=== PATIENT | female | born 1940 | race Caucasian/White ===

== ENCOUNTER → 2016-07-26 | Outpatient (CLI) | payer BC ==
[~2016-07-26] MED LIST: BACL10TA PO; BUSP-8 PO; LORA-741 PO; ONDA4TAB65 PO
[2016-07-26 14:07] LABS: BLOOD UREA NITROGEN 20 mg/dl (7-18); CREATININE 0.91 mg/dl (0.60-1.20)
== END | disposition home or self-care (01) ==
LOC: C.LABBC 11:14
PROVIDERS: ATTEND Physician Assistant
DX: G50.0 Trigeminal neuralgia (principal)

== ENCOUNTER → 2016-07-28 | Outpatient (CLI) | payer BC ==
[~2016-07-28] MED LIST changes: +GADAVIST IV PRN
--- NOTE | 2016-07-28 11:15 | DIAGNOSTIC IMAGING REPORT ---
MRI OF THE BRAIN COMBO TRIGEMINAL NERVE PROTOCOL CLINICAL HISTORY: Left-sided trigeminal neuralgia. COMPARISON STUDY: MRI of the brain dated 03/04/2015 and 09/23/2014. TECHNIQUE: MRI of the brain was performed utilizing various T1 and T2-weighted sequences in the axial, sagittal, and coronal planes. Contrast-enhanced sequences were acquired following the administration of 6 cc of Gadavist. Additional high-resolution imaging was performed through the skull base both pre and postcontrast for further assessment of the trigeminal nerve. FINDINGS: Brain parenchyma: Right frontal encephalomalacia is unchanged and likely related to previous surgery. Mild dural thickening and enhancement along the right frontal convexity in the midline falx is similar to previous and likely a postoperative basis. There are age-related involutional changes noting minimal subcortical and periventricular PICC radiopathic disease. There is no hemorrhage or mass effect. There is no restricted diffusion to suggest acute ischemia. No enhancing mass lesion is identified on the postcontrast images. Kat-white matter differentiation is preserved. No extra-axial fluid collection is seen. The cerebellar tonsils are normal in configuration. Ventricles, sulci, and cisterns: Prominent secondary to involutional change. Trigeminal nerves: The trigeminal nerves are symmetric bilaterally, and are normal in both morphology and signal intensity. No abnormal enhancement is identified involving the trigeminal nerves on the postcontrast imaging. Pituitary and sella: Unremarkable. Intracranial vasculature: Normal flow voids are maintained at the skull base. Orbits: The bony orbits are grossly intact. Orbital contents are normal in appearance noting a left ocular lens implant. Sinuses and mastoids: Clear. Calvarium: Again seen are postoperative changes from right frontoparietal craniotomy. No destructive calvarial lesion is seen. Cervical cord: Partially visualized cervical spinal cord is normal in morphology and signal intensity. IMPRESSION: 1. No acute intracranial abnormality. 2. Mild age-related and postoperative change as above. This is similar in appearance to prior examinations. 3. Unremarkable MRI assessment of the trigeminal nerves. Electronically signed by: Wong Santos M.D. 07/28/2016 11:12 AM Dictated Date/Time: 07/28/2016 11:02 AM
== END | disposition home or self-care (01) ==
LOC: C.MRIBC 09:22
PROVIDERS: ATTEND Physician Assistant
DX: G50.0 Trigeminal neuralgia (principal)

== ENCOUNTER 2016-10-16 09:13 | Emergency (ER) | payer BC ==
[~2016-10-16] VITALS: Ht 167.6 cm; Wt 58.9 kg
[~2016-10-16 09:13] MED LIST changes: -BACL10TA PO; -GADAVIST IV PRN; -LORA-741 PO; -ONDA4TAB65 PO
[2016-10-16 09:22] VITALS: TEMP 36.9; O2SAT 97; Ht 167.6 cm; Wt 58.9 kg
[2016-10-16] MEDS ORDERED: SODIUM CHLORIDE 0.9% 1000ML 1,000 ML IV STA (09:32)
[2016-10-16] MEDS ORDERED: ONDANSETRON INJ 2 MG/ML 2 ML VIAL IV STA (09:32)
[2016-10-16] MEDS ORDERED: MoRPHine SULFATE 4 MG/ML 1 ML CARP\\VIAL IV STA (09:32)
[2016-10-16 09:39] LABS: BASO % 0.2 %; BASO ABS # 0.02 K/uL (0-0.2); COMPLETE YES; EOS % 2.2 %; HEMATOCRIT 42.3 % (37-47); IG% 0.1 %; LYMPH % 26.7 %; LYMPH ABS # 2.14 K/uL (1.2-3.4); MEAN CELL VOLUME 99.3 fL (80-100); MEAN CORPUSCULAR HGB CONC 35.2 g/dl (32-36); MEAN PLATELET VOLUME 10.8 fL (7.4-10.4); MONO % 9.6 %; NEUT % 61.2 %; PLATELET COUNT 287 K/uL (130-400); RED BLOOD COUNT 4.26 M/uL (4.2-5.4); WHITE BLOOD COUNT 8.01 K/uL (4.8-10.8)
[2016-10-16] MEDS ORDERED: BACL10TA PO (09:44)
[2016-10-16] MEDS ORDERED: LORA-741 PO (09:44)
[2016-10-16 09:58] LABS: BUN/CREATININE RATIO 26.9 (10-20); CALCIUM 10.5 mg/dl (8.5-10.1); CREATININE 0.94 mg/dl (0.60-1.20); POTASSIUM 3.9 mmol/L (3.5-5.1)
[2016-10-16] MEDS ORDERED: OPTIRAY 320 IV PRN (10:00)
--- NOTE | 2016-10-16 11:17 | DIAGNOSTIC IMAGING REPORT ---
ABD/PELVIS IV CONTRAST ONLY HISTORY:76 yearsFemalelower abd/priumbilical pain COMPARISON: CT abdomen and pelvis 03/06/2016 and 05/04/2006. TECHNIQUE: Multiple axial CT images of the abdomen and pelvis were obtained following the intravenous administration of 93 mL Optiray 320. FINDINGS: There is minimal dependent bibasilar atelectasis. No gross pneumoperitoneum. Inferior cardiac chambers are unremarkable. Circumscribed low attenuating lesion of the posterior right hepatic lobe, 1.5 x 1.3 cm is nonspecific and suggests a hepatic cyst. 1.7 x 1.0 cm low attenuating lesion of the mid spleen also appears unchanged from multiple comparisons dating back to 05/04/2006 suggesting benign cyst. Prior cholecystectomy. There is moderate pancreatic atrophy. Adrenal glands appear unremarkable. 5 mm low attenuating lesion of the interpolar left kidney is too small to characterize however suggests cyst with similar appearing lesions seen on the right. No hydronephrosis. The urinary bladder is unremarkable. Uterus and adnexa are age-appropriate. There is moderate atherosclerotic plaquing of the abdominal aorta and its branches. No pathologic adenopathy identified. There is a small to moderate-sized hiatal hernia with partially intrathoracic stomach. No bowel obstruction. Noninflamed colonic diverticula are seen. Normal appendix. Note is made of diastases recti with a small periumbilical fat filled hernia with diastases of 1.2 cm. Left gluteal injection granulomas present. Right hip arthroplasty noted. 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 7 mm retrolisthesis L2 on L3 and 6 mm retrolisthesis L1 on L2 are again noted with approximately 30% anterior endplate compression deformity of L1, unchanged findings. IMPRESSION: 1. No acute intra-abdominal or intrapelvic abnormality identified. 2. Diastases recti with small fat filled periumbilical hernia. 3. Colonic diverticulosis without diverticulitis. 4. [id number] sized hiatal hernia. 5. Prior cholecystectomy. The above report was generated using voice recognition software. It may contain grammatical, syntax or spelling errors. Electronically signed by: Fermin Sy 10/16/2016 11:16 AM Dictated Date/Time: 10/16/2016 11:05 AM
[2016-10-16 11:28] VITALS: BP 148/50; PULSE 55; O2SAT 97
[2016-10-16 11:41] LABS: URINE APPEARANCE CLEAR (CLEAR); URINE BILIRUBIN NEG (NEG); URINE COLOR YELLOW; URINE EPITHELIAL CELL AUTO 0-5 /lpf (0-5); URINE NITRITE NEG (NEG); URINE SPECIFIC GRAVITY 1.019 (1.000-1.030); UROBILINOGEN NEG (NEG); ZZUR CULT IF INDIC CLEAN CATCH NO
[2016-10-16 11:50] LABS: MANUAL MICROSCOPIC REQUIRED? NO; REVIEW REQ? NO
[2016-10-16] MEDS ORDERED: ONDA4TAB65 PO (11:54)
--- NOTE | 2016-10-16 16:37 | EMERGENCY ROOM VISIT NOTE ---
History Report prepared by Tobi: Adri Hill Under the Supervision of: Dr. Adam Palmer D.O. First contact with patient: 09:26 Chief Complaint: NAUSEA Stated Complaint: FLU LIKE SX Nursing Triage Summary: Patient having nausea, vomiting, diarrhea and on/off fevers. PMH: Trigeminal Neuralgia (right side), Rose's Palsy (left side), S/P Choley, diverticulitis. History of Present Illness The patient is a 76 year old female who presents to the Emergency Room with complaints of worsening abdominal pain beginning last night. She states that she is also experiencing nausea, vomiting and diarrhea. She states a couple of episodes of diarrhea.The patient notes a decrease in appetite. She has a history of diverticulitis. The patient takes Lorazepam and states that she took her dosage yesterday and saw improvement in her symptoms. She notes trigeminal neuralgia on her right side. Pt denies headache, change in vision, fevers, chest pain, shortness of breath, pain with urination, blood in stool, recent exposure to illness, weakness or numbness in one extremity and melena. 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 Source of History: patient Onset: last night Position: abdomen Timing: worsening Associated Symptoms: + nausea, + vomiting, + urinary symptoms Review of Systems See HPI for pertinent positives & negatives. A total of 10 systems reviewed and were otherwise negative. 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 (4) Diverticulitis (5) Hypotension (6) Meningioma (7) Volume depletion Surgical Problems: (1) History of hip replacement (2) S/P cholecystectomy Family History Appendicitis FH: colonic diverticulitis Social History Smoking Status: Never Smoker Alcohol Use: occasionally Drug Use: none Marital Status: Housing Status: lives with significant other Occupation Status: retired Current/Historical Medications Scheduled Baclofen (Lioresal), 20 MG PO BID Lorazepam (Ativan), 0.5 MG PO DAILY Ondansetron Hcl (Zofran), 4 MG PO TID Allergies Coded Allergies: Hydrocodone (Verified Allergy, Intermediate, ITCHING, 10/16/16) Codeine (Verified Allergy, Mild, RASH, 10/16/16) Phenytoin (Verified Allergy, Mild, VERTIGO, 10/16/16) Peanut (Verified Allergy, Unknown, SHORTNESS OF BREATH, 10/16/16) Hydromorphone (Verified Adverse Reaction, Intermediate, NAUSEA/ VOMITING, 10/16/16) Oxycodone (Verified Adverse Reaction, Mild, NAUSEA/VERTIGO, 10/16/16) Physical Exam Vital Signs Date Time Temp Pulse Resp B/P (MAP) Pulse Ox O2 Delivery O2 Flow Rate FiO2 10/16/16 11:28 55 18 148/50 97 Room Air 10/16/16 09:26 58 10/16/16 09:22 36.9 77 18 158/88 97 Room Air 10/16/16 09:22 97 Room Air Physical Exam GENERAL: laying in bed, disheveled, alert, well appearing, well nourished, no distress, non-toxic EYE EXAM: normal conjunctiva, PERRL and EOM's intact OROPHARYNX: no exudate, no erythema, lips, buccal mucosa, and tongue normal and mucous membranes are moist NECK: supple, no nuchal rigidity, no adenopathy, non-tender LUNGS: Clear to auscultation. Normal chest wall mechanics HEART: no murmurs, S1 normal and S2 normal ABDOMEN: abdomen soft, non-tender, normo-active bowel sounds, no masses, no rebound or guarding. BACK: Back is symmetrical on inspection and there is no deformity, no midline tenderness, no CVA tenderness. SKIN: no rashes and no bruising UPPER EXTREMITIES: upper extremities are grossly normal. LOWER EXTREMITIES: No pitting edema. NEURO EXAM: Normal sensorium, cranial nerves II-XII normal with exception of left facial droop x3 years, normal speech, no weakness of arms, no weakness of legs. Medical Decision & Procedures ER Provider Diagnostic Interpretation: CT result as stated below per my review and the radiologist's interpretation: ABD/PELVIS IV CONTRAST ONLY HISTORY:76 yearsFemalelower abd/priumbilical pain COMPARISON: CT abdomen and pelvis 03/06/2016 and 05/04/2006. TECHNIQUE: Multiple axial CT images of the abdomen and pelvis were obtained following the intravenous administration of 93 mL Optiray 320. FINDINGS: There is minimal dependent bibasilar atelectasis. No gross pneumoperitoneum. Inferior cardiac chambers are unremarkable. Circumscribed low attenuating lesion of the posterior right hepatic lobe, 1.5 x 1.3 cm is nonspecific and suggests a hepatic cyst. 1.7 x 1.0 cm low attenuating lesion of the mid spleen also appears unchanged from multiple comparisons dating back to 05/04/2006 suggesting benign cyst. Prior cholecystectomy. There is moderate pancreatic atrophy. Adrenal glands appear unremarkable. 5 mm low attenuating lesion of the interpolar left kidney is too small to characterize however suggests cyst with similar appearing lesions seen on the right. No hydronephrosis. The urinary bladder is unremarkable. Uterus and adnexa are age-appropriate. There is moderate atherosclerotic plaquing of the abdominal aorta and its branches. No pathologic adenopathy identified. There is a small to moderate-sized hiatal hernia with partially intrathoracic stomach. No bowel obstruction. Noninflamed colonic diverticula are seen. Normal appendix. Note is made of diastases recti with a small periumbilical fat filled hernia with diastases of 1.2 cm. Left gluteal injection granulomas present. Right hip arthroplasty noted. 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 7 mm retrolisthesis L2 on L3 and 6 mm retrolisthesis L1 on L2 are again noted with approximately 30% anterior endplate compression deformity of L1, unchanged findings. IMPRESSION: 1. No acute intra-abdominal or intrapelvic abnormality identified. 2. Diastases recti with small fat filled periumbilical hernia. 3. Colonic diverticulosis without diverticulitis. 4. [id number] sized hiatal hernia. 5. Prior cholecystectomy. The above report was generated using voice recognition software. It may contain grammatical, syntax or spelling errors. Electronically signed by: Fermin Sy 10/16/2016 11:16 AM Dictated Date/Time: 10/16/2016 11:05 AM Laboratory Results 10/16/16 09:25 Red Blood Count 4.26, Mean Corpuscular Volume 99.3, Mean Corpuscular Hemoglobin 35.0, Mean Corpuscular Hemoglobin Concent 35.2, Mean Platelet Volume 10.8, Neutrophils (%) (Auto) 61.2, Lymphocytes (%) (Auto) 26.7, Monocytes (%) (Auto) 9.6, Eosinophils (%) (Auto) 2.2, Basophils (%) (Auto) 0.2, Neutrophils # (Auto) 4.89, Lymphocytes # (Auto) 2.14, Monocytes # (Auto) 0.77, Eosinophils # (Auto) 0.18, Basophils # (Auto) 0.02 10/16/16 09:25 Test 10/16/16 09:25 10/16/16 11:25 White Blood Count 8.01 K/uL (4.8-10.8) Red Blood Count 4.26 M/uL (4.2-5.4) Hemoglobin 14.9 g/dL (12.0-16.0) Hematocrit 42.3 % (37-47) Mean Corpuscular Volume 99.3 fL (80-100) Mean Corpuscular Hemoglobin 35.0 pg (25-34) Mean Corpuscular Hemoglobin Concent 35.2 g/dl (32-36) Platelet Count 287 K/uL (130-400) Mean Platelet Volume 10.8 fL (7.4-10.4) Neutrophils (%) (Auto) 61.2 % Lymphocytes (%) (Auto) 26.7 % Monocytes (%) (Auto) 9.6 % Eosinophils (%) (Auto) 2.2 % Basophils (%) (Auto) 0.2 % Neutrophils # (Auto) 4.89 K/uL (1.4-6.5) Lymphocytes # (Auto) 2.14 K/uL (1.2-3.4) Monocytes # (Auto) 0.77 K/uL (0.11-0.59) Eosinophils # (Auto) 0.18 K/uL (0-0.5) Basophils # (Auto) 0.02 K/uL (0-0.2) RDW Standard Deviation 48.2 fL (36.4-46.3) RDW Coefficient of Variation 13.4 % (11.5-14.5) Immature Granulocyte % (Auto) 0.1 % Immature Granulocyte # (Auto) 0.01 K/uL (0.00-0.02) Anion Gap 11.0 mmol/L (3-11) Est Creatinine Clear Calc Drug Dose 46.6 ml/min Estimated GFR () 67.8 Estimated GFR (Non- 58.5 BUN/Creatinine Ratio 26.9 (10-20) Calcium Level 10.5 mg/dl (8.5-10.1) Total Bilirubin 0.6 mg/dl (0.2-1) Direct Bilirubin 0.2 mg/dl (0-0.2) Aspartate Amino Transf (AST/SGOT) 15 U/L (15-37) Alanine Aminotransferase (ALT/SGPT) 21 U/L (12-78) Alkaline Phosphatase 91 U/L (45-117) Total Protein 7.8 gm/dl (6.4-8.2) Albumin 4.5 gm/dl (3.4-5.0) Lipase 189 U/L (73-393) Urine Color YELLOW Urine Appearance CLEAR (CLEAR) Urine pH 6.0 (4.5-7.5) Urine Specific [place] 1.019 (1.000-1.030) Urine Protein NEG (NEG) Urine Glucose (UA) NEG (NEG) Urine Ketones NEG (NEG) Urine Occult Blood NEG (NEG) Urine Nitrite NEG (NEG) Urine Bilirubin NEG (NEG) Urine Urobilinogen NEG (NEG) Urine Leukocyte Esterase NEG (NEG) Urine WBC (Auto) 1-5 /hpf (0-5) Urine RBC (Auto) 0-4 /hpf (0-4) Urine Hyaline Casts (Auto) 0 /lpf (0-5) Urine Epithelial Cells (Auto) 0-5 /lpf (0-5) Urine Bacteria (Auto) NEG (NEG) Laboratory results per my review. Medications Administered Medications (Trade) Dose Ordered Sig/Gracy Route Start Time Stop Time Status Last Admin Dose Admin Sodium Chloride 1,000 ml @ 999 mls/hr Q1H1M STAT IV 10/16/16 09:32 10/16/16 10:32 DC 10/16/16 09:52 999 MLS/HR Ondansetron HCl (Zofran Inj) 4 mg NOW STAT IV 10/16/16 09:32 10/16/16 09:34 DC 10/16/16 09:52 4 MG ECG Indication: abdominal pain Rate (beats per minute): 66 Rhythm: sinus rhythm Findings: PVC, other (normal axis, normal intervals) ED Course ED COURSE: Vital signs were reviewed and showed bradycardic. The patients medical record was reviewed The above diagnostic studies were performed and reviewed. ED treatments and interventions as stated above. 0929: The patient was evaluated in room B12. A complete history and physical examination was performed. 0932: Morphine Sulfate Inj 4 mg IV, Zofran Inj 4 mg IV, Sodium Chloride 1,000 ml @ 999 mls/hr IV. 1137: I reevaluated the patient and she is feeling better. 1155: Upon reevaluation, the patient is hemodynamically stable.I discussed my findings with the patient and she understands and agrees with the treatment plan. Based on the patients age, coexisting illnesses, exam and lab findings the decision to treat as an outpatient was made. The patient remained stable while under my care. The patient appeared well at the time of discharge. Medical Decision Medication Reconciliation: I attest that I have personally reviewed the patient' s current medication list. Blood pressure screening: Patient was found to have an elevated blood pressure and was referred to their primary doctor for recheck and further treatment. Differential diagnoses includes but is not limited to gastritis, peptic ulcer disease, GERD, gallbladder disease, pancreatitis, small bowel obstruction, acute coronary syndrome, pericarditis, ischemic bowel, irritable bowel disease, irritable bowel syndrome, appendicitis, diverticulitis, malignancy, hernia, urinary tract infection, perforation, trauma, infectious. The patient is a 76 year old female who presents to the ED with complaints of abdominal pain. Her abdominal pain has improved significantly upon arrival. She does admit to nausea, vomiting and diarrhea. No focal deficit. Labs are unremarkable. No leukocytosis. BMP along with LFTs, bilirubin and lipase were normal. Calcium was slightly elevated. UA was negative. CT of the abdomen and pelvis shows no acute pathology. She was given fluids and Zofran. She felt slightly better. She was discharged follow-up with her PCP. Discussed with Pt concerning signs and symptoms to watch out for. Pt was instructed to follow up with their PCP and discussed with the patient their option to return to the ED at anytime for persistent or worsening symptoms. The appropriate anticipatory guidance and out-patient management, including indications for return to the emergency department, were explained at length to the patient and understood. Impression Primary Impression: Periumbilical abdominal pain Scribe Attestation The scribe's documentation has been prepared under my direction and personally reviewed by me in its entirety. I confirm that the note above accurately reflects all work, treatment, procedures, and medical decision making performed by me. Departure Information Dispostion Home / Self-Care Prescriptions Ondansetron Hcl (ZOFRAN) 4 Mg Tab 4 MG PO TID for Nausea or Vomiting for 5 Days, #15 TAB Prov: Adam Palmer, DO 10/16/16 Referrals Manish Estrada M.D. (PCP) Forms HOME CARE DOCUMENTATION FORM, IMPORTANT VISIT INFORMATION Patient Instructions Abdominal Pain - [facility], [facility] [place] Additional Instructions Please follow up with your primary care doctor with in the next 24 hours. Any worsening of your symptoms, please return to the ED immediately. This includes fevers greater than 100.4, inability to drink, worsening pain, or any other concerning signs or symptoms from your standpoint.
== END 2016-10-16 12:06 | disposition home or self-care (01) ==
LOC: EDBD 09:13 → C.EDB 09:14
DX: R10.33 Periumbilical pain (principal); K57.92 Diverticulitis of intestine, part unspecified, without perforation or abscess without bleeding; M16.10 Unilateral primary osteoarthritis, unspecified hip; R19.7 Diarrhea, unspecified; R11.2 Nausea with vomiting, unspecified; Z86.018 Personal history of other benign neoplasm; Z90.49 Acquired absence of other specified parts of digestive tract; Z96.649 Presence of unspecified artificial hip joint; Z79.899 Other long term (current) drug therapy; Z88.5 Allergy status to narcotic agent; Z88.8 Allergy status to other drugs, medicaments and biological substances; Z91.010 Allergy to peanuts; Z83.79 Family history of other diseases of the digestive system

== ENCOUNTER 2016-11-10 05:45 | Emergency (ER) | payer BC ==
[~2016-11-10] VITALS: Ht 167.6 cm; Wt 61.8 kg
[~2016-11-10 05:45] MED LIST changes: +BACL10TA PO; -BUSP-8 PO; +LORA-741 PO
[2016-11-10 05:48] VITALS: TEMP 36.6; Ht 167.6 cm; Wt 61.8 kg
[2016-11-10] MEDS ORDERED: XYLOCAINE 1%/SOD BICARB 20 ML VIAL INFIL ONE (06:03)
--- NOTE | 2016-11-10 06:24 | EMERGENCY ROOM VISIT NOTE ---
History Report prepared by Tobi: Rg Bryson Under the Supervision of: Dr. Valerie Billings D.O. First contact with patient: 05:52 Chief Complaint: LACERATION/CUT (SUT/DERMABOND) Stated Complaint: FELL AND HIT HEAD ON DRESSER History of Present Illness The patient is a 76 year old female who presents to the Emergency Room with complaints of a sudden laceration to the left side of her head that occurred around 0515. She rates her pain as a 5/10 in severity. The patient states that she woke up and went to go to the bathroom when she suddenly experienced an episode of incontinence. She states that she slipped in her own urine on the ground, causing her to fall on her buttocks and hit her head on the sharp corner of her dresser. She is accompanied by her who states that her head was bleeding severely directly after the incident, but admits that it had resolved shortly after. The patient states that she started to experience pain in her coccyx region and foggy vision on her left side following the fall. He states that he gave her two Tylenol to alleviate her pain. Her also states that she typically takes Aspirin whenever she experiences a headache. The patient admits that she has a history of Rose's Palsy for three years and a head surgery to remove a meningioma in 2005. Her states that she has an allergy to Percocet. The patient denies any blood thinners and syncope. Source of History: patient Onset: 0515 Position: head Symptom Intensity: 5/10 Timing: other (sudden) Modifying Factors (Relieving): other (tylenol) Associated Symptoms: + back pain, No LOC Review of Systems See HPI for pertinent positives & negatives. A total of 10 systems reviewed and were otherwise negative. 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 (4) Diverticulitis (5) Hypotension (6) Meningioma (7) Volume depletion Surgical Problems: (1) History of hip replacement (2) S/P cholecystectomy Family History Appendicitis FH: colonic diverticulitis Social History Smoking Status: Never Smoker Alcohol Use: occasionally Drug Use: none Marital Status: Housing Status: lives with significant other Occupation Status: retired Current/Historical Medications Scheduled Baclofen (Lioresal), 20 MG PO BID Lorazepam (Ativan), 0.5 MG PO DAILY Allergies Coded Allergies: Hydrocodone (Verified Allergy, Intermediate, ITCHING, 11/10/16) Codeine (Verified Allergy, Mild, RASH, 11/10/16) Phenytoin (Verified Allergy, Mild, VERTIGO, 11/10/16) Peanut (Verified Allergy, Unknown, SHORTNESS OF BREATH, 11/10/16) Hydromorphone (Verified Adverse Reaction, Intermediate, NAUSEA/ VOMITING, 11/10/16) Oxycodone (Verified Adverse Reaction, Mild, NAUSEA/VERTIGO, 11/10/16) Physical Exam Vital Signs Date Time Temp Pulse Resp B/P (MAP) Pulse Ox O2 Delivery O2 Flow Rate FiO2 11/10/16 05:48 36.6 104 20 112/74 96 Room Air Physical Exam HEENT: Head - 3.5 cm laceration to left occipital region. normocephalic. Pupils are equal, round, and reactive to light. Extraocular eye muscles are intact and sclera are anicteric. Ears - bilaterally patent canals with no evidence of hemotympanum. Nose - moist nasal mucosa without evidence of trauma or discharge. Mouth - moist buccal mucosa with no trauma to the teeth or signs of malocclusion. Neck: The neck is supple and there is no pain to palpation over the posterior cervical spine and no obvious step-offs or deformities. There is no JVD or tracheal deviation. No pain upon palpation to Cervical spine. Chest: There are no signs of deformities, contusions or abrasions to the chest wall. There is no obvious crepitus or paradoxical chest rise. Heart: Regular, rate, and rhythm. There is a normal S1 and S2 with no murmurs, clicks, or gallops appreciated. Lungs: Clear to auscultation bilaterally with no wheezes, rales, or rhonchi. Abdomen: Soft, completely nontender, nondistended, with good bowel sounds. There is no sign of trauma such as contusions, abrasions or penetrations. There are no palpable pulsatile masses or hepatosplenomegaly. There is no guarding, rigidity, or rebound noted. Pelvis: Stable to rock and compression. Extremities: No obvious trauma, deformities, contusions, or edema. There are easily palpable peripheral pulses. Neuro: The patient is awake and alert and easily able to follow commands. Muscle strength is 5 out of 5 in all 4 extremities. Otherwise, neuro exam is unremarkable. Back: The entire thoracic, lumbar, and sacral spine were palpated. There are no obvious step-offs or deformities noted. There are no obvious signs of trauma such as contusions abrasions penetrations noted to the back. Tenderness over coccyx region upon palpation. No obvious crepitus. Medical Decision & Procedures Procedure Location: Left occipital region Total length: 3.5 cm Complexity: Simple Verbal consent was obtained. A time out was taken and the correct patient and site identified. The skin was prepped with betadine. The target area was anesthetized with 4 ml of 1% lidocaine without epinephrine. Copious irrigation was performed using Sterile water. The skin was re-prepped with betadine and a sterile field set. The wound was explored for foreign bodies and none found. Examination revealed no injury to deep structures such as tendons, bone, or significant blood vessels. Debridement was not performed. The wound edges were approximated using 10 familia. Hemostasis and excellent approximation was achieved. Antibacterial ointment and a sterile dressing applied. Detailed wound care instructions and signs and symptoms of infection reviewed with the . No complications and the patient tolerated the procedure well. ED Course 0555: Past medical records reviewed. The patient was evaluated in room B10. A complete history and physical exam was performed. 0603: Lidocaine HCl 20 ml INFIL. 0605: I performed a laceration repair to the left occipital region. See procedure note for further details. Medical Decision The patient is a 76 year old female who presents to the ED with complaints of a sudden laceration to the left side of her head that occurred around 0515 this morning when she slipped and fell. Differential diagnosis includes skull fracture, intracranial hemorrhage, scalp laceration, closed head injury, C spine injury. The patient slipped in urine while trying to walk to the bathroom. She fell straight backwards striking the left side of her head on a dresser and landing on her tailbone/coccyx. She did not lose consciousness. She does not take a blood thinner other than aspirin. Her mental status is at its baseline according to her . The wound on the scalp was repaired without any difficulty. She had no pain to palpation over her cervical spine. She did have some slight discomfort over the coccyx with palpation but no obvious crepitus. The had administered oral Motrin and the patient stated that she was feeling better. The patient was instructed to keep the wound clean with soap and moderate apply antibiotic ointment. She is to follow-up with her PCP in 10 days to have the familia removed. Medication Reconcilliation Current Medication List: was personally reviewed by me Blood Pressure Screening Patient's blood pressure: Normal blood pressure Impression Primary Impression: Laceration of scalp Additional Impressions: Fall Coccyx contusion Scribe Attestation The scribe's documentation has been prepared under my direction and personally reviewed by me in its entirety. I confirm that the note above accurately reflects all work, treatment, procedures, and medical decision making performed by me. Departure Information Dispostion Home / Self-Care Referrals Manish Estrada M.D. (PCP) Forms HOME CARE DOCUMENTATION FORM, IMPORTANT VISIT INFORMATION Patient Instructions ED Laceration Scalp Stitch Or Stap, Falls Prevent Home, Falls Preventing, Falls Risks Prevent, My [facility] Additional Instructions Rest with your head elevated. Apply ice to the wound. Keep the wound clean with soap and water. Cover with antibiotic ointment Have the familia removed in 10 days Sit on a cushion for tailbone pain Take motrin for pain Problem Qualifiers Primary Impression: Laceration of scalp Encounter type: initial encounter Qualified Codes: S01.01XA - Laceration without foreign body of scalp, initial encounter Additional Impressions: Fall Encounter type: initial encounter Qualified Codes: W19.XXXA - Unspecified fall, initial encounter Coccyx contusion Encounter type: initial encounter Qualified Codes: S30.0XXA - Contusion of lower back and pelvis, initial encounter
[2016-11-10 06:31] VITALS: BP 112/74; PULSE 104; O2SAT 96
== END 2016-11-10 06:41 | disposition home or self-care (01) ==
LOC: C.EDB 05:46
DX: S01.01XA Laceration without foreign body of scalp, initial encounter (principal); W19.XXXA Unspecified fall, initial encounter; S30.0XXA Contusion of lower back and pelvis, initial encounter; N17.9 Acute kidney failure, unspecified; G51.0 Bell's palsy; M16.10 Unilateral primary osteoarthritis, unspecified hip; K57.92 Diverticulitis of intestine, part unspecified, without perforation or abscess without bleeding; I10 Essential (primary) hypertension; C70.9 Malignant neoplasm of meninges, unspecified

== ENCOUNTER 2016-11-20 13:04 | Emergency (ER) | payer BC ==
[~2016-11-20] VITALS: Ht 167.6 cm; Wt 61.5 kg
[2016-11-20 13:07] VITALS: BP 102/68; PULSE 71; TEMP 36.8; O2SAT 97; Ht 167.6 cm; Wt 61.5 kg
--- NOTE | 2016-11-20 13:42 | EMERGENCY ROOM VISIT NOTE ---
ED Visit Note First contact with patient: 13:23 CHIEF COMPLAINT: "Staple removal" This patient returns to the ED today for removal of sutures that were placed 10 days ago. There has been no swelling, redness, or drainage from the wound. The patient feels like the laceration is healing well. REVIEW OF SYSTEMS: Head: No headache, injury or neck pain. Skin: No rash, new lesions, or masses. General: No fever or chills, fatigue, loss of appetite , or significant recent weight gain or loss. PMH: The patient is healthy; there is no significant medical or surgical history. SOCIAL HISTORY: Patient lives at home. PHYSICAL EXAM: Vital Signs: Reviewed Nurse's notes. There is a sutured wound on the scalp with no signs of infection. There is no erythema, swelling, or tenderness. EMERGENCY DEPARTMENT COURSE: The sutures were removed without any difficulty and there was no separation of the wound edges. Problem List Medical Problems: (1) Rose's palsy Status: Chronic (2) Degenerative joint disease (DJD) of hip Status: Chronic (3) Diverticulitis Status: Resolved (4) Hypotension Status: Chronic (5) Meningioma Status: Resolved Surgical Problems: (1) History of hip replacement Status: Resolved (2) S/P cholecystectomy Status: Resolved Current/Historical Medications Scheduled Baclofen (Lioresal), 20 MG PO BID Lorazepam (Ativan), 0.5 MG PO DAILY Allergies Coded Allergies: Hydrocodone (Verified Allergy, Intermediate, ITCHING, 11/10/16) Codeine (Verified Allergy, Mild, RASH, 11/10/16) Phenytoin (Verified Allergy, Mild, VERTIGO, 11/10/16) Peanut (Verified Allergy, Unknown, SHORTNESS OF BREATH, 11/10/16) Hydromorphone (Verified Adverse Reaction, Intermediate, NAUSEA/ VOMITING, 11/10/16) Oxycodone (Verified Adverse Reaction, Mild, NAUSEA/VERTIGO, 11/10/16) Vital Signs Date Time Temp Pulse Resp B/P (MAP) Pulse Ox O2 Delivery O2 Flow Rate FiO2 11/20/16 13:07 36.8 71 20 102/68 97 Room Air Departure Information Impression Primary Impression: Encounter for removal of familia Dispostion Home / Self-Care Condition GOOD Referrals No Doctor, Assigned (PCP) Patient Instructions [facility] Additional Instructions DISCHARGE INSTRUCTIONS AND TREATMENT: Wash any remaining crusts off of the wound today and resume your normal activities.
== END 2016-11-20 13:45 | disposition home or self-care (01) ==
LOC: C.EDB 13:09 → C.EDD 13:45
DX: Z48.02 Encounter for removal of sutures (principal); Z90.49 Acquired absence of other specified parts of digestive tract; Z96.649 Presence of unspecified artificial hip joint

== ENCOUNTER → 2017-07-26 | Outpatient (CLI) | payer BC ==
[2017-07-26 17:37] LABS: BASO % 0.3 %; BASO ABS # 0.02 K/uL (0-0.2); HEMATOCRIT 41.6 % (37-47); HEMOGLOBIN 14.4 g/dL (12.0-16.0); IG# 0.02 K/uL (0.00-0.02); LYMPH % 30.2 %; LYMPH ABS # 1.98 K/uL (1.2-3.4); MEAN CELL VOLUME 102.2 fL (80-100); MEAN CORPUSCULAR HEMOGLOBIN 35.4 pg (25-34); MEAN CORPUSCULAR HGB CONC 34.6 g/dl (32-36); MEAN PLATELET VOLUME 11.2 fL (7.4-10.4); MONO % 10.7 %; NEUT % 55.5 %; NEUT ABS # 3.64 K/uL (1.4-6.5); PLATELET COUNT 278 K/uL (130-400); RED CELL DISTRIBUTION WIDTH CV 13.8 % (11.5-14.5); RED CELL DISTRIBUTION WIDTH SD 51.6 fL (36.4-46.3); WHITE BLOOD COUNT 6.56 K/uL (4.8-10.8)
[2017-07-26 17:38] LABS: ALBUMIN 3.7 gm/dl (3.4-5.0); ALT/SGPT 24 U/L (12-78); AST/SGOT 18 U/L (15-37); BLOOD UREA NITROGEN 23 mg/dl (7-18); CALCIUM 9.3 mg/dl (8.5-10.1); CARBON DIOXIDE 28 mmol/L (21-32); CREATININE 0.98 mg/dl (0.60-1.20); GLUCOSE 108 mg/dl (70-99); POTASSIUM 3.4 mmol/L (3.5-5.1); SODIUM 141 mmol/L (136-145)
[2017-07-26 17:47] LABS: ALKALINE PHOSPHATASE 82 U/L (45-117); CHOLESTEROL 180 mg/dl (0-200); LDL CHOLESTEROL CALCULATED 93 mg/dl; TOTAL PROTEIN 7.5 gm/dl (6.4-8.2)
== END | disposition home or self-care (01) ==
LOC: C.LABBC 14:06
PROVIDERS: ATTEND Internal Medicine
DX: R53.83 Other fatigue (principal); E78.5 Hyperlipidemia, unspecified; E83.42 Hypomagnesemia

== ENCOUNTER 2021-06-22 16:36 | Observation (INO) ==
[2021-06-22 17:41] LABS: Basophils # (auto) 0.02 K/uL (0-0.2); Basophils % (auto) 0.2 %; Eosinophils # (auto) 0.08 K/uL (0-0.5); Eosinophils % (auto) 0.9 %; Hematocrit (blood only) 47.2 % (37-47); Hemoglobin 16.2 g/dL (12.0-16.0); Immature Granulocytes # (auto) 0.01 K/uL (0.00-0.02); Immature Granulocytes % (auto) 0.1 %; Lymphocytes # (auto) 1.64 K/uL (1.2-3.4); Lymphocytes % (auto) 18.7 %; Mean Corpuscular Hemoglobin 35.3 pg (25-34); Mean Corpuscular Hgb Conc 34.3 g/dL (32-36); Mean Corpuscular Volume 102.8 fL (80-100); Mean Platelet Volume 11.6 fL (7.4-10.4); Monocytes # (auto) 0.85 K/uL (0.11-0.59); Monocytes % (auto) 9.7 %; Neutrophils # (auto) 6.16 K/uL (1.4-6.5); Neutrophils % (auto) 70.4 %; Platelet Count 288 K/uL (130-400); RDW Coefficient of Variation 13.4 % (11.5-14.5); RDW Standard Deviation 50.2 fL (36.4-46.3); Red Blood Count 4.59 M/uL (4.2-5.4); White Blood Count 8.76 K/uL (4.8-10.8)
--- NOTE | 2021-06-22 17:49 | Emergency Department Note ---
Impression & Plan EKG abnormalities, Weakness, Hypercalcemia, Acute dehydration ED Provider Note NAME: TERRI TURNER AGE: 80 SEX: F : 1940 ARRIVES VIA: Walk-In INFORMANT: Patient, ED PROVIDER(S): Ramos Root MD Chief Complaint: Weakness, dry mouth, fatigue HPI: Patient does present with above symptoms that have been ongoing for the last several days. The patient denies any focal numbness tingling or weakness. 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 Patient has any fevers chills cough or chest pain. The patient was recently stopped off her Ativan and also stopped taking her Effexor. The patient stopped taking is about 2 weeks ago and had done about a week of taking it every other day and then abruptly stopped. Patient does have a prior history of some diverticulitis and did have some mild abdominal discomfort. Patient denies any bloody stools. The patient denies any nausea vomiting. Patient did have a home COVID test completed that was negative. Patient did have a prior cholecystectomy but did not require any sort of colonic procedure with the diverticulitis. No sick contacts or recent travel. The did have Covid back in April but was asymptomatic. Patient has had 2 Covid vaccinations as well as a booster. Patient has had slightly decreased appetite. ROS: See HPI for pertinent positives and negatives. A total of 10 systems were reviewed and otherwise negative. Past medical history: See below Surgical history: See below Social history: See below Physical Exam: GENERAL: NAD, wearing glasses, wearing a mask, non-toxic. EYE EXAM: Normal conjunctiva. PERRL, no anisocoria and EOM's grossly intact w/o pain. OROPHARYNX: Moist mucus membranes. Grossly normal dentition. NECK: Supple, no nuchal rigidity, no adenopathy, non-tender. No signs of meningismus. LUNGS: Clear to auscultation. Normal chest wall mechanics. HEART: NSR, no MRG. ABDOMEN: Abdomen soft, non-tender, normo-active bowel sounds, no masses, no rebound or guarding. BACK: No CVA TTP. SKIN: No rashes and no bruising. UPPER EXTREMITIES: Upper extremities are grossly normal. LOWER EXTREMITIES: Grossly normal, no edema. NEURO EXAM: A&O x3, cranial nerves II-XII grossly intact with exception of left- sided facial deficits, normal speech, moves all 4 extremities on command w/o issue. Good finger to nose, no drift, no sensory deficits. Differential diagnoses: Infection, dehydration, metabolic abnormality, hypo/hyperglycemia, electrolyte disturbance, anemia, hypoxia, cardiac sources, intracerebral event, toxicologic, neurologic, as well as other pathologies. Course: Patient was seen and evaluated the bedside. Full history physical exam was performed. EKG interpreted by me There is tachycardia with occasional PVCs, rate of 101, prolonged QTC, normal axis, T wave inversion inferiorly and laterally. Imaging Studies: See Below Cardiac monitoring: An order was placed for continuous cardiac monitoring. The monitor shows a rate of 95 with an rhythm. MDM: Patient was seen due to concern for some weakness fatigue and occasional shortness of breath. The patient does not complain of any acute shortness of breath at this time or chest pain. Patient did have blood work completed along with an EKG troponin and chest x-ray. The patient's blood work showed a normal white count with mild elevation hemoglobin which may be consistent with some dehydration. The patient does have prerenal azotemia mild hypercalcemia. Urinalysis does show ketones likely consistent with the dehydration. The patient did receive IV fluids. Patient is Covid negative. Patient did have a CT completed as the patient does have prior history of diverticulitis and did have some left lower quadrant pain on exam. Patient has colonic diverticulosis but without diverticulitis. No bowel obstruction. The patient does have small to moderate hiatal hernia. Patient's EKG did show acute EKG changes with T wave inversions in the lateral leads along with the inferior leads. Patient denies any current chest pains or shortness of breath. Given this EKG change I did recommend the patient stay for observation and treatment. I did speak with the on-call hospitalist Dr. Cash and the patient was admitted to the medicine service. Past Med/Surg History Medical History Anxiety Depression Fibromyalgia History of diverticulitis History of seizures as a child At age 11 History of squamous cell carcinoma Meningioma Removed (2005) Osteoarthritis SCC (squamous cell carcinoma) Surgical History History of hip replacement Right History of squamous cell carcinoma excision S/P brain surgery Removal of meningioma (2005) S/P cholecystectomy S/P knee surgery Right S/P tonsillectomy Family History Father Diverticulitis Colorectal cancer Mother Herpes zoster infection Sister Sinus symptom Denies family history of Ovarian cancer Prostate cancer Myocardial infarction Breast cancer Lung cancer Stroke Social History Smoking Status: Never smoker Second Hand Exposure: No; Hx Alcohol Use: Yes Hx Substance Use: No Preferred Language: [place] Communication Ability: Effective Visual Impairment: No Limitations Hearing Ability: Normal Occupational Physician Required: No Beliefs That Will Affect Care: None marital status: Current Living Situation: Spouse current occupational status: retired Feels Safe at Home: Yes Dental Care, Regularly: Yes Physical Activity Frequency: Daily Seatbelt Use: always Sunscreen Use: Yes Assistive Devices: Glasses Allergies Allergies Allergy/AdvReac Type Severity Reaction Status Date / Time peanut Allergy Severe Dyspnea Verified 06/22/21 18:15 hydrocodone Allergy Intermediate Itching Verified 03/09/21 14:06 codeine Allergy Mild Rash Verified 03/09/21 14:06 acetaminophen [From Endocet] Allergy Unknown CAN'T Verified 06/22/21 18:15 REMEMBER baclofen Allergy Unknown CAN'T Verified 06/22/21 18:15 REMEMBER fentanyl [From Duragesic] Allergy Unknown CAN'T Verified 06/22/21 18:15 REMEMBER gabapentin Allergy Unknown CAN'T Verified 06/22/21 18:15 REMEMBER hydromorphone AdvReac Intermediate N/V Verified 06/22/21 18:15 oxycodone AdvReac Intermediate Nausea, Verified 06/22/21 18:15 vertigo phenytoin AdvReac Intermediate Vertigo Verified 06/22/21 18:15 Home Meds Home Medications Medication Instructions Recorded Confirmed lorazepam 0.5 mg tablet 0.25 - 0.5 mg PO Q OTHER DAY #30 11/11/18 06/22/21 tab multivitamin (Daily Multi-Vitamin) 1 tab PO QAM 12/17/18 06/22/21 venlafaxine 150 mg 150 mg PO QAM cap 12/17/18 06/22/21 capsule,extended release 24 hr coQ10 (ubiquinol) 100 mg capsule 100 mg PO QAM 12/16/20 06/22/21 ibuprofen-diphenhydramine citrate 1 cap PO HS PRN 06/22/21 06/22/21 200 mg-38 mg tablet (Advil PM) omega-3 fatty acids 1,000 mg 1,000 mg PO DAILY 06/22/21 06/22/21 capsule Results & Data (ED) Vital Signs Vital Signs - 24 hr 06/22/21 16:40 06/22/21 19:00 06/22/21 21:00 Temperature 35.7 C L 37 C Temperature Source Temporal Artery Scan Oral Pulse Rate 113 H Pulse Rate [Left] 86 78 Pulse Rhythm [Left] Regular Pulse Strength [Left] Normal Normal Respiratory Rate 20 18 18 Respiratory Effort / Characteristics Non-Labored Non-Labored Spontaneous Non-Labored Spontaneous Respiratory Depth Normal Normal Normal Respiratory Pattern Regular Regular Blood Pressure 162/80 H Blood Pressure [Left Arm] 175/80 H 175/80 H Blood Pressure Mean 107 Blood Pressure Mean [Left Arm] 111 111 Blood Pressure Position [Left Arm] Sitting Lying Pulse Oximetry 98 99 98 Oxygen Delivery Method Room Air Room Air Sepsis Recent Fever Within 48 Hours Yes Sepsis New/Unexplained Change in Mental Status No Sepsis Action Taken by Nursing Physician Notified 06/22/21 23:00 Temperature 36.9 C Temperature Source Oral Pulse Rate Pulse Rate [Left] 82 Pulse Rhythm [Left] Regular Pulse Strength [Left] Normal Respiratory Rate 18 Respiratory Effort / Characteristics Non-Labored Spontaneous Respiratory Depth Normal Respiratory Pattern Regular Blood Pressure Blood Pressure [Left Arm] 175/80 H Blood Pressure Mean Blood Pressure Mean [Left Arm] 111 Blood Pressure Position [Left Arm] Lying Pulse Oximetry 96 Oxygen Delivery Method Room Air Sepsis Recent Fever Within 48 Hours Sepsis New/Unexplained Change in Mental Status Sepsis Action Taken by Group Home Medications Current Medication List: was personally reviewed by me Laboratory Data Attestation: I reviewed the patient's lab results. Result diagrams: 06/22/21 17:30 06/22/21 18:57 Lab Results 06/22/21 06/22/21 06/22/21 Range/Units 17:30 17:30 17:30 WBC 8.76 (4.8-10.8) K/uL RBC 4.59 (4.2-5.4) M/uL Hgb 16.2 H (12.0-16.0) g/dL Hct 47.2 H (37-47) % MCV 102.8 H (80-100) fL MCH 35.3 H (25-34) pg MCHC 34.3 (32-36) g/dL RDW Std Deviation 50.2 H (36.4-46.3) fL RDW Coeff of Shruti 13.4 (11.5-14.5) % Plt Count 288 (130-400) K/uL MPV 11.6 H (7.4-10.4) fL Immature Gran % (Auto) 0.1 % Neut % (Auto) 70.4 % Lymph % (Auto) 18.7 % Stephens % (Auto) 9.7 % Eos % (Auto) 0.9 % Baso % (Auto) 0.2 % Neut # (Auto) 6.16 (1.4-6.5) K/uL Lymph # (Auto) 1.64 (1.2-3.4) K/uL Stephens # (Auto) 0.85 H (0.11-0.59) K/uL Eos # (Auto) 0.08 (0-0.5) K/uL Baso # (Auto) 0.02 (0-0.2) K/uL Immature Gran # (Auto) 0.01 (0.00-0.02) K/uL Sodium 140 (136-145) mmol/L Potassium (3.5-5.1) mmol/L Chloride 105 (98-107) mmol/L Carbon Dioxide 22 (21-32) mmol/L Anion Gap 13 H (3-11) BUN 27 H (6-23) mg/dl Creatinine 1.04 (0.6-1.2) mg/dl Est Cr Clr Drug Dosing 39.7 ml/min Est GFR ( Amer) 58.4 ml/min Est GFR (Non-Af Amer) 50.3 ml/min BUN/Creatinine Ratio 26.0 H (10-20) Glucose 119 H (70-99(Fasting)) mg/dl Calcium 10.8 H (8.5-10.1) mg/dl Total Bilirubin 0.5 (0.2-1.0) mg/dl AST (13-39) U/L ALT 32 (7-52) U/L Alkaline Phosphatase 82 (34-104) U/L Troponin I < 0.03 (0-0.04) ng/ml Total Protein 7.9 (6.0-8.3) gm/dl Albumin 4.9 (3.4-5.0) gm/dl Globulin 3.0 (2.5-4.0) gm/dl Albumin/Globulin Ratio 1.6 (0.9-2) TSH 1.848 (0.300-4.500) uIu/ml Urine Color Urine Appearance (Clear) Urine pH (4.5-7.5) Ur Specific Hilbert (1.000-1.030) Urine Protein (Negative) Urine Glucose (UA) (Negative) Urine Ketones (Negative) Urine Blood (Negative) Urine Nitrite (Negative) Urine Bilirubin (Negative) Urine Urobilinogen (Negative) Ur Leukocyte Esterase (Negative) Urine WBC (Auto) (0-5) /hpf Urine RBC (Auto) (0-4) /hpf U Hyaline Cast (Auto) (0-5) /lpf U Epithel Cells (Auto) (0-5) /lpf Urine Bacteria (Auto) (Negative) SARS-CoV-2, RNA, NAAT (NEGATIVE) 06/22/21 06/22/21 06/22/21 Range/Units 18:57 19:37 21:07 WBC (4.8-10.8) K/uL RBC (4.2-5.4) M/uL Hgb (12.0-16.0) g/dL Hct (37-47) % MCV (80-100) fL MCH (25-34) pg MCHC (32-36) g/dL RDW Std Deviation (36.4-46.3) fL RDW Coeff of Shruti (11.5-14.5) % Plt Count (130-400) K/uL MPV (7.4-10.4) fL Immature Gran % (Auto) % Neut % (Auto) % Lymph % (Auto) % Stephens % (Auto) % Eos % (Auto) % Baso % (Auto) % Neut # (Auto) (1.4-6.5) K/uL Lymph # (Auto) (1.2-3.4) K/uL Stephens # (Auto) (0.11-0.59) K/uL Eos # (Auto) (0-0.5) K/uL Baso # (Auto) (0-0.2) K/uL Immature Gran # (Auto) (0.00-0.02) K/uL Sodium (136-145) mmol/L Potassium 4.5 (3.5-5.1) mmol/L Chloride (98-107) mmol/L Carbon Dioxide (21-32) mmol/L Anion Gap (3-11) BUN (6-23) mg/dl Creatinine (0.6-1.2) mg/dl Est Cr Clr Drug Dosing ml/min Est GFR ( Amer) ml/min Est GFR (Non-Af Amer) ml/min BUN/Creatinine Ratio (10-20) Glucose (70-99(Fasting)) mg/dl Calcium (8.5-10.1) mg/dl Total Bilirubin (0.2-1.0) mg/dl AST 27 (13-39) U/L ALT (7-52) U/L Alkaline Phosphatase (34-104) U/L Troponin I (0-0.04) ng/ml Total Protein (6.0-8.3) gm/dl Albumin (3.4-5.0) gm/dl Globulin (2.5-4.0) gm/dl Albumin/Globulin Ratio (0.9-2) TSH (0.300-4.500) uIu/ml Urine Color Yellow Urine Appearance Clear (Clear) Urine pH 5.5 (4.5-7.5) Ur Specific Hilbert 1.021 (1.000-1.030) Urine Protein Negative (Negative) Urine Glucose (UA) Negative (Negative) Urine Ketones Trace H (Negative) Urine Blood Negative (Negative) Urine Nitrite Negative (Negative) Urine Bilirubin Negative (Negative) Urine Urobilinogen Negative (Negative) Ur Leukocyte Esterase Trace H (Negative) Urine WBC (Auto) 5-10 H (0-5) /hpf Urine RBC (Auto) 0-4 (0-4) /hpf U Hyaline Cast (Auto) 1-5 (0-5) /lpf U Epithel Cells (Auto) 10-20 H (0-5) /lpf Urine Bacteria (Auto) Negative (Negative) SARS-CoV-2, RNA, NAAT NEGATIVE (NEGATIVE) Administered Medications Discontinued Medications Sodium Chloride (Nss 1000ml) 1,000 mls @ 999 mls/hr IV .Q1H1M ONE Stop: 06/22/21 19:09 Last Infusion: 06/22/21 20:55 Dose: 0 mls/hr Documented by: [id number] Admin: 06/22/21 19:36 Dose: 999 mls/hr Documented by: [id number] Ioversol (Optiray 320 100ml) 94 ml IV ONCE ONE Stop: 06/22/21 19:18 Last Admin: 06/22/21 19:17 Dose: 94 ml Documented by: [id number] Imaging Data Radiologist's Impression: Abdomen/Pelvis CT 06/22/21 18:[address] WITH IV CONTRAST CT DOSE: 314.80 mGy.cm HISTORY: Acute weakness with left lower quadrant abdominal pain LLQ pain, weakness TECHNIQUE: Multiaxial CT images of the abdomen and pelvis were performed following the IV administration of Optiray, A dose lowering technique was utilized adhering to the principles of ALARA. COMPARISON STUDY: CT abdomen pelvis 10/16/2016 FINDINGS: The imaged lower chest appears unremarkable. No pneumatosis or pneumo peritoneum. Benign-appearing hypodense foci of the spleen are unchanged measuring up to 2.3 cm. Mildly atrophic pancreas. The adrenal glands are within normal limits. Cholecystectomy. 1.6 cm cyst of the inferior right hepatic lobe. Patency of the hepatic and portal veins. Symmetric enhancement of the kidneys without hydronephrosis. 1.1 cm right renal cyst. Additional subcentimeter renal hypodensities are too small to characterize. No hydronephrosis. Urinary bladder is unremarkable. Calcifications involving the uterus suggestive of calcified fibroids. Atherosclerosis of the aorta without aneurysm. No lymphadenopathy. Small to moderate sized hiatal hernia. No bowel obstruction or bowel wall thickening. Colonic diverticulosis without acute diverticulitis. Normal appe ndix. Tiny fat filled periumbilical hernia. Unremarkable soft tissues. Right hip total joint arthroplasty. Severe left hip osteoarthritis. Chronic appearing L1 compression deformity. IMPRESSION: 1. Colonic diverticulosis without acute diverticulitis. 2. No bowel obstruction or bowel wall thickening. Normal appendix. 3. Small to moderate hiatal hernia. 4. Additional findings as above. ACT 112: Negative or not required by law. The above report was generated using voice recognition software. It may contain grammatical, syntax or spelling errors. Electronically signed by: Alexandre Sy M.D. 06/22/2021 7:28 PM Discharge Plan Visit Data Chief Complaint: Weakness Stated Complaint: WEAKNESS-NAUSEA [id number] ED Provider: Ramos Root Discharge Problem: EKG abnormalities, Weakness, Hypercalcemia, Acute dehydration Patient Disposition: Admitted As Inpatient Forms Stand Alone Forms: [facility] Prescriptions Prescriptions: No Action multivitamin [Daily Multi-Vitamin] tablet 1 tab PO QAM RF: 0 lorazepam 0.5 mg tablet 0.25 - 0.5 mg PO Q OTHER DAY Qty: 30 RF: 0 venlafaxine 150 mg capsule,extended release 24hr 150 mg PO QAM RF: 0 coQ10 (ubiquinol) 100 mg Capsule 100 mg PO QAM RF: 0 omega-3 fatty acids 1,000 mg Capsule 1,000 mg PO DAILY RF: 0 Advil PM 200-38 mg Tablet 1 cap PO HS PRN (Reason: NEEDED) RF: 0 Referrals Referrals: ProManish MD [Primary Care Provider] -
[2021-06-22 18:02] LABS: Troponin I < 0.03 ng/ml (0-0.04)
[2021-06-22] MEDS ORDERED: SODIUM CHLORIDE 0.9% 1000ML 1,000 ML IV ONE (18:09)
[2021-06-22 18:22] LABS: Alanine Aminotransferase 32 U/L (7-52); Albumin Globulin Ratio 1.6 (0.9-2); Albumin Level 4.9 gm/dl (3.4-5.0); Alkaline Phosphatase 82 U/L (34-104); Anion Gap 13 (3-11); Bilirubin,Total 0.5 mg/dl (0.2-1.0); Blood Urea Nitrogen 27 mg/dl (6-23); Calcium 10.8 mg/dl (8.5-10.1); Carbon Dioxide 22 mmol/L (21-32); Chloride 105 mmol/L (98-107); Creatinine Clr Calc Pharmacy 39.7 ml/min; Est GFR (African American) 58.4 ml/min; Est GFR (Non-African American) 50.3 ml/min; Glucose 119 mg/dl (70-99(Fasting)); Sodium 140 mmol/L (136-145); Total Protein 7.9 gm/dl (6.0-8.3)
[2021-06-22] MEDS ORDERED: OPTIRAY 320 100ml IV ONE (19:17)
--- NOTE | 2021-06-22 19:30 | CT Scan Report ---
ABDOMEN AND PELVIS CT WITH IV CONTRAST CT DOSE: 314.80 mGy.cm HISTORY: Acute weakness with left lower quadrant abdominal pain LLQ pain, weakness TECHNIQUE: Multiaxial CT images of the abdomen and pelvis were performed following the IV administrat ion of Optiray, A dose lowering technique was utilized adhering to the principles of ALARA. COMPARISON STUDY: CT abdomen pelvis 10/16/2016 FINDINGS: The imaged lower chest appears unremarkable. No pneumatosis or pneumoperitoneum. Benign-geoffrey earing hypodense foci of the spleen are unchanged measuring up to 2.3 cm. Mildly atrophic pancreas. T he adrenal glands are within normal limits. Cholecystectomy. 1.6 cm cyst of the inferior right hepati c lobe. Patency of the hepatic and portal veins. Symmetric enhancement of the kidneys without hydrone phrosis. 1.1 cm right renal cyst. Additional subcentimeter renal hypodensities are too small to cathi cterize. No hydronephrosis. Urinary bladder is unremarkable. Calcifications involving the uterus sugg estive of calcified fibroids. Atherosclerosis of the aorta without aneurysm. No lymphadenopathy. Small to moderate sized hiatal hernia. No bowel obstruction or bowel wall thickening. Colonic diverti culosis without acute diverticulitis. Normal appendix. Tiny fat filled periumbilical hernia. Unremark able soft tissues. Right hip total joint arthroplasty. Severe left hip osteoarthritis. Chronic appear ing L1 compression deformity. IMPRESSION: 1. Colonic diverticulosis without acute diverticulitis. 2. No bowel obstruction or bowel wall thickening. Normal appendix. 3. Small to moderate hiatal hernia. 4. Additional findings as above. ACT 112: Negative or not required by law. The above report was generated using voice recognition software. It may contain grammatical, syntax o r spelling errors. Electronically signed by: Alexandre Sy M.D. 06/22/2021 7:28 PM
[2021-06-22 19:32] LABS: Potassium 4.5 mmol/L (3.5-5.1)
[2021-06-22 19:49] LABS: Appearance Urine Clear (Clear); Bacteria Urine Automated Negative (Negative); Bilirubin Urine Negative (Negative); Blood Urine Negative (Negative); Color Urine Yellow; Glucose Urine UA Negative (Negative); Ketones Urine Trace (Negative); Leukocyte Esterase Urine Trace (Negative); Nitrite Urine Negative (Negative); Protein Urine Negative (Negative); RBC Urine Automated 0-4 /hpf (0-4); Specific Gravity Urine 1.021 (1.000-1.030); Urobilinogen Urine Negative (Negative); pH Urine 5.5 (4.5-7.5)
--- NOTE | 2021-06-22 22:07 | History & Physical Report ---
Date of Service June 22, 2021 Assessment & Plan (1) EKG abnormalities: Plan: - T wave inversion in inferior leads and anterolateral leads, new from EKG done in December 2020, without chest pain/palpitations/SOB and an initial troponin < .03. - Ddx includes CAD vs withdrawal induced as she has recently stopped taking Ativan and Venlafaxine which she reportedly has been on for years. No known CAD, does have the following risk factors: age, HTN, HLD - Will trend troponin Q6h x2, EKGs with any new onset chest pain or anginal equivalent. - Echo in morning. - NPO at midnight. - Cardiology consult in AM, appreciate their recommendations. (2) Weakness: Plan: - With fatigue, vague+dull abdominal pain and nausea, for 3-4 days. Suspect this might be related to stopping her venlafaxine and Ativan. She does not have any electrolyte imbalances, evidence of dehydration, or anemia to suggest other causes. CTAP did not show acute process that could be causing abdominal pain + nausea. No focal motor or sensory deficits. - Will give IVF at midnight while pt is NPO, monitor CBC and CMP in AM. (3) Depression: Plan: -With anxiety; previously on venlafaxine 150 mg, abruptly stopped this 3-4 days ago. Also on Ativan which she had been tapering from 1 --> .5 mg, however stopped this entirely about a week ago -Will restart these medications tomorrow as patient really should taper off of this, her abrupt withdrawal is likely partially contributing to her weakness and fatigue, as well as HTN. (4) Hypertension: Plan: -175/60 today in ED, in the setting of recent,abrupt stop of venlafaxine and Ativan. Patient was previously managing BP with diet and exercise and reportedly had been at goal. Suspect it may be elevated as a symptom of withdrawal, however cannot rule out that it is due to cardiac dz. -Lopressor 5 mg PRN ordered for BP > 180/110. -Continue to monitor. (5) Hyperlipidemia: Plan: - Being managed with diet and exercise. - Will check lipid panel in AM. 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 No new focal deficits today. Plan: -Observation medsurg with tele. -SCDs, Lovenox for DVT ppx. -Full Code. 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 This seemingly came out of nowhere and has been debilitating as she is typically fairly active. This has been accompanied by mild nausea and a dull abdominal pain. She is otherwise well, without fever/chills, myalgias, shortness of breath, cough, URI symptoms, chest pain, palpitations, orthopnea, PND, edema, vomiting, diarrhea, constipation, focal weakness, numbness/tingling, speech difficulties. No change in her appetite, no sick contacts, she is vaccinated and boosted for COVID-19 and test is negative in ED today. In ED, patient is hypertensive with BP 175/80, otherwise VS wnl. Routine lab wor k significant for BMP 27, glucose 119, Ca++ 10.8, otherwise wnl, TSH wnl, UA with 5-10 WBCs, trace leuk est with 10-20 epi cells. EKG demonstrated T wave inversions in inferior and anterolateral leads. Initial troponin negative. COVID-19 neg. Of note, she is currently weaning off her daily Ativan and Venlafaxine, noting she reduced Ativan from 1 mg to .5 mg over the past 2 weeks or so and actually stopped Ativan entirely last week. She had previously been taking this for years. She is also on 150 mg venlafaxine, recently stopped this entirely 3-4 days ago. She states she wishes not to be dependent on these medications. Allergies Allergy/AdvReac Type Severity Reaction Status Date / Time peanut Allergy Severe Dyspnea Verified 06/22/21 18:15 hydrocodone Allergy Intermediate Itching Verified 03/09/21 14:06 codeine Allergy Mild Rash Verified 03/09/21 14:06 acetaminophen [From Endocet] Allergy Unknown CAN'T Verified 06/22/21 18:15 REMEMBER baclofen Allergy Unknown CAN'T Verified 06/22/21 18:15 REMEMBER fentanyl [From Duragesic] Allergy Unknown CAN'T Verified 06/22/21 18:15 REMEMBER gabapentin Allergy Unknown CAN'T Verified 06/22/21 18:15 REMEMBER hydromorphone AdvReac Intermediate N/V Verified 06/22/21 18:15 oxycodone AdvReac Intermediate Nausea, Verified 06/22/21 18:15 vertigo phenytoin AdvReac Intermediate Vertigo Verified 06/22/21 18:15 Home Medications Medication Instructions Recorded Confirmed Type lorazepam 0.5 mg tablet 0.25 - 0.5 mg PO Q OTHER DAY #30 11/11/18 06/22/21 History tab multivitamin (Daily Multi-Vitamin) 1 tab PO QAM 12/17/18 06/22/21 History venlafaxine 150 mg 150 mg PO QAM cap 12/17/18 06/22/21 History capsule,extended release 24 hr coQ10 (ubiquinol) 100 mg capsule 100 mg PO QAM 12/16/20 06/22/21 History ibuprofen-diphenhydramine citrate 1 cap PO HS PRN 06/22/21 06/22/21 History 200 mg-38 mg tablet (Advil PM) omega-3 fatty acids 1,000 mg 1,000 mg PO DAILY 06/22/21 06/22/21 History capsule Past Med/Surg History Medical History Anxiety Depression Fibromyalgia History of diverticulitis History of seizures as a child At age 11 History of squamous cell carcinoma Meningioma Removed (2005) Osteoarthritis SCC (squamous cell carcinoma) Surgical History History of hip replacement Right History of squamous cell carcinoma excision S/P brain surgery Removal of meningioma (2005) S/P cholecystectomy S/P knee surgery Right S/P tonsillectomy Family History Father Diverticulitis Colorectal cancer Mother Herpes zoster infection Sister Sinus symptom Denies family history of Ovarian cancer Prostate cancer Myocardial infarction Breast cancer Lung cancer Stroke Social History Smoking Status: Former smoker Second Hand Exposure: No; Do You Dip or Chew Tobacco: No; Tobacco Cessation Education Requested by Patient: No Hx Alcohol Use: Yes Alcohol type: wine Hx Substance Use: No Preferred Language: [place] Communication Ability: Effective Visual Impairment: No Limitations Hearing Ability: Normal Facilities Manager Required: No Beliefs That Will Affect Care: None marital status: Current Living Situation: Spouse current occupational status: retired Other Information That Helps Us Care for You: No Feels Safe at Home: Yes Safety Concerns: Feels Safe At This Time Dental Care, Regularly: Yes Physical Activity Frequency: Daily Seatbelt Use: always Sunscreen Use: Yes Assistive Devices: Glasses and Walker Review of Systems Review of Systems: Constitutional: fatigue and generalized weakness x3 days; No fever, sweats or chills Eyes: No diplopia, no worsening or blurred vision ENT: normal hearing, no trouble swallowing Respiratory: No cough, sputum, dyspnea at rest or on exertion Cardiovascular: No chest pain, tightness or palpitations Abdomen: Some diffuse, dull abdominal pain and mild nausea, without vomiting, diarrhea or constipation Musculoskeletal: No joint pain, calf pain, swelling Neurologic: No focal weakness, numbness/tingling, or balance problems Psychiatric: No anxiety or depression Skin: No rash or itch Physical Exam Physical Exam: General: awake, alert, no apparent distress, patient is very pleasant; on room air Head: Normocephalic, atraumatic ENT: PERRL, EOMI, no pharyngeal exudate, mucous membranes moist Chest: Clear to auscultation, on room air, no adventitious breath sounds Cardiac: Regular rate and rhythm, no murmur, no JVD, normal peripheral pulses, good capillary refill Abdominal: some dull left sided tenderness ; otherwise NABS x 4 quadrants, soft, nontender to palpation, no rebound, guarding or tenderness Extremities: Normal inspection, no peripheral edema or erythema, calfs nontender to palpation Psych: Normal mood and affect Neuro: AAO x 3, strength intact bilaterally and rated 5/5, no motor deficits, speech is clear, no peripheral sensory deficits Skin: no rash or erythema Results & Data Results & Data ([facility]) Vital Signs (Past 12 Hours) Vital Signs Temp Pulse Pulse Resp BP BP Pulse Ox 06/22/21 21:00 78 18 175/80 H 98 06/22/21 19:00 37 C 86 18 175/80 H 99 06/22/21 16:40 35.7 C L 113 H 20 162/80 H 98 Laboratory Results Abnormal lab results 06/22/21 06/22/21 06/22/21 Range/Units 17:30 17:30 19:37 Hgb 16.2 H (12.0-16.0) g/dL Hct 47.2 H (37-47) % MCV 102.8 H (80-100) fL MCH 35.3 H (25-34) pg RDW Std Deviation 50.2 H (36.4-46.3) fL MPV 11.6 H (7.4-10.4) fL Jenkins # (Auto) 0.85 H (0.11-0.59) K/uL Anion Gap 13 H (3-11) BUN 27 H (6-23) mg/dl BUN/Creatinine Ratio 26.0 H (10-20) Glucose 119 H (70-99(Fasting)) mg/dl Calcium 10.8 H (8.5-10.1) mg/dl Urine Ketones Trace H (Negative) Ur Leukocyte Esterase Trace H (Negative) Urine WBC (Auto) 5-10 H (0-5) /hpf U Epithel Cells (Auto) 10-20 H (0-5) /lpf Diagnostic Findings Abdomen/Pelvis CT 06/22/21 18:[address] WITH IV CONTRAST CT DOSE: 314.80 mGy.cm HISTORY: Acute weakness with left lower quadrant abdominal pain LLQ pain, weakness TECHNIQUE: Multiaxial CT images of the abdomen and pelvis were performed following the IV administration of Optiray, A dose lowering technique was utilized adhering to the principles of ALARA. COMPARISON STUDY: CT abdomen pelvis 10/16/2016 FINDINGS: The imaged lower chest appears unremarkable. No pneumatosis or pneumoperitoneum. Benign-appearing hypodense foci of the spleen are unchanged measuring up to 2.3 cm. Mildly atrophic pancreas. The adrenal glands are within normal limits. Cholecystectomy. 1.6 cm cyst of the inferior right hepatic lobe. Patency of the hepatic and portal veins. Symmetric enhancement of the kidneys without hydronephrosis. 1.1 cm right renal cyst. Additional subcentimeter renal hypodensities are too small to characterize. No hydronephrosis. Urinary bladder is unremarkable. Calcifications involving the uterus suggestive of calcified fibroids. Atherosclerosis of the aorta without aneurysm. No lymphadenopathy. Small to moderate sized hiatal hernia. No bowel obstruction or bowel wall thickening. Colonic diverticulosis without acute diverticulitis. Normal appendix. Tiny fat filled periumbilical hernia. Unremarkable soft tissues. Right hip total joint arthroplasty. Severe left hip osteoarthritis. Chronic appearing L1 compression deformity. IMPRESSION: 1. Colonic diverticulosis without acute diverticulitis. 2. No bowel obstruction or bowel wall thickening. Normal appendix. 3. Small to moderate hiatal hernia. 4. Additional findings as above. ECG Additional Comments: Sinus tachycardia with occasional Premature ventricular complexes ST & T wave abnormality, consider inferior ischemia ST & T wave abnormality, consider anterolateral ischemia Abnormal ECG When compared with ECG of 21-DEC-2020 12:33, Premature ventricular complexes are now Present T wave inversion now evident in Inferior leads T wave inversion now evident in Anterolateral leads Code Status & VTE Plan Code Status Full Code. VTE Prophylaxis Plan VTE Prophylaxis will be ordered: Yes Supervising Physician Co-Signing Physician Notes Attending addendum: I have physically seen this patient, have supervised the KAMILLA's activities, and agree with the H&P unless as otherwise noted. Assessment and Plan: Abnormal EKG/hypertension- The patient will be admitted to telemetry for serial cardiac enzymes, serial EKG's, cardiac rhythm monitoring and a 2-D echocardiogram with Dopplers. Symptoms may have been brought on by withdrawal of lorazepam and venlafaxine Generalized weakness/anxiety with depression Associated with fatigue Would certainly be explained by the abrupt withdrawal of lorazepam and venlafaxine Resume partial dosing of lorazepam 0.5 mg, and hold on resumption of Effexor at this time Remaining orders and notations as noted PG Care Time/CCT Total # of Minutes Spent Total Time Spent with Patient: Total time spent is greater than 50% in coordination of care (as documented) at patient's floor/unit and/or counseling patient: Coding Level of Care Code INT OBSERVATION CARE 70M LVL 3 Diagnoses EKG abnormalities R94.31 Depression F32.9 Hyperlipidemia E78.5 Rose's palsy G51.0 Hypertension I10 Weakness R53.1
[2021-06-23] MEDS ORDERED: POLYETHYLENE (MIRALAX) 17 GM PACK PO PRN (02:44)
[2021-06-23] MEDS ORDERED: METOPROLOL TARTRATE 1 MG/ML VIAL IV PRN (02:44)
[2021-06-23] MEDS ORDERED: LACTATED RINGER'S 1,000 ML IV SCH (02:44)
[2021-06-23] MEDS ORDERED: NITROGLYCERIN SL 0.4 MG/TAB TAB SL PRN (02:44)
[2021-06-23 03:03] LABS: Basophils # (auto) 0.02 K/uL (0-0.2); Basophils % (auto) 0.2 %; Eosinophils % (auto) 1.2 %; Hematocrit (blood only) 40.4 % (37-47); Hemoglobin 14.2 g/dL (12.0-16.0); Immature Granulocytes # (auto) 0.01 K/uL (0.00-0.02); Immature Granulocytes % (auto) 0.1 %; Lymphocytes # (auto) 2.71 K/uL (1.2-3.4); Lymphocytes % (auto) 32.4 %; Mean Corpuscular Hemoglobin 35.8 pg (25-34); Mean Corpuscular Hgb Conc 35.1 g/dL (32-36); Mean Corpuscular Volume 101.8 fL (80-100); Monocytes # (auto) 1.01 K/uL (0.11-0.59); Monocytes % (auto) 12.1 %; Neutrophils # (auto) 4.52 K/uL (1.4-6.5); Platelet Count 254 K/uL (130-400); RDW Coefficient of Variation 13.2 % (11.5-14.5); RDW Standard Deviation 49.4 fL (36.4-46.3); Red Blood Count 3.97 M/uL (4.2-5.4); White Blood Count 8.37 K/uL (4.8-10.8)
[2021-06-23] MEDS: ONDANSETRON INJ 2 MG/ML 2 ML VIAL IV PRN ×3 (03:10→22:57)
[2021-06-23 03:24] LABS: Albumin Globulin Ratio 1.6 (0.9-2); Albumin Level 4.2 gm/dl (3.4-5.0); BUN Creatinine Ratio 27.3 (10-20); Bilirubin,Total 0.6 mg/dl (0.2-1.0); Calcium 9.8 mg/dl (8.5-10.1); Chol HDL Ratio 3.2 (0-5); Creatinine Clr Calc Pharmacy 53.6 ml/min; Est GFR (African American) 83.9 ml/min; Est GFR (Non-African American) 72.4 ml/min; Globulin 2.6 gm/dl (2.5-4.0); Potassium 4.1 mmol/L (3.5-5.1); Total Protein 6.8 gm/dl (6.0-8.3)
[2021-06-23] MEDS ORDERED: PNEUMOCOCCAL POLYSACCHARIDES 25 MCG/0.5 ML VIAL/SYR IM ONE (03:44)
[2021-06-23 03:54] LABS: Troponin I 0.03 ng/ml (0-0.04)
[2021-06-23] MEDS ORDERED: IBUPROFEN 600 MG TAB PO STA (04:10)
[2021-06-23] MEDS: ENOXAPARIN INJ 40 MG/0.4 ML SYR SQ SCH (08:26)
[2021-06-23] MEDS: VENLAFAXINE HCL XR 150 MG CAPXR PO SCH (08:27)
[2021-06-23] MEDS ORDERED: LORazepam 0.5 MG TAB PO SCH (09:00)
--- NOTE | 2021-06-23 10:41 | Cardiology Consultation ---
Date of Consultation June 23, 2021 Assessment & Plan (1) Abnormal ECG: (2) Hypertension: (3) Paroxysmal atrial tachycardia: (4) Prolonged QT interval: (5) Dizziness: ASSESSMENT/PLAN: 1. Abnormal ECG: Recommended repeating ECG which has since been done, demonstrating diffuse T-wave inversion and prolonged QT. This does not fit with a coronary distribution and she denies any cardiac symptoms. Echo demonstrated normal LV systolic function and normal wall motion on initial inspection. These findings can be noted with neurologic events. She does have neurologic symptoms of dizziness, but they seem to correlate with herself adjustment of her antidepressant medication. Could consider brain imaging but will defer to primary service. 2. Hypertension: Blood pressure elevated throughout this hospital stay. If remains elevated, would recommend antihypertensive treatment. 3. Paroxysmal atrial tachycardia: Brief nonsustained runs. Appears to be asymptomatic. If more frequent issues, could consider beta-darryl. 4. Prolonged QT: QT is just mildly prolonged. Monitor closely, especially with reinstitution of venlafaxine. 5. Dizziness/lightheadedness: She describes a true spinning sensation. History of meningioma resection per records. Consider brain imaging, especially if symptoms do not improve with resumption of venlafaxine. Consider orthostatic vitals if not already completed. 6. Abdominal pain: As per primary hospitalist service. 7. Disposition: Please call with any other questions or concerns. Cardiology will sign off at this time. Patient care discussed with Dr. Milligan of the primary hospitalist service. Today's visit was 48 minutes in duration, with greater than 50% of that time spent counseling patient, coordinating care, and discussing with hospitalist service. Time also includes chart review, imaging review, and chart completion. Thank you for allowing me to participate in the care of your patient. Please call for any other questions or concerns. Sincerely, Kenroy Ma M.D. History of Present Illness Reason for Consultation: Abnormal ECG Requesting Physician: Anna Rees Attending Physician: Alfa Milligan MD History of Present Illness Mrs. 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 Cardiology was consulted due to abnormal ECG. She was admitted on 06/22/2021 with complaint of weakness and fatigue. She had been on venlafaxine and Ativan chronically and abruptly reduced and then discontinued these medications in the last few days. Since that time, for the p ast 3 days she has had generalized weakness, dizziness, lightheadedness, and nausea. She also has been noting right lower quadrant abdominal pain. She admits that the symptoms were not present prior to self adjusting her medications. The dizziness is described as a spinning sensation but also a lightheadedness, most notably while standing. She denies syncope but was near syncopal. She denies any chest pain, shortness of breath, palpitations, edema, or bleeding. She denies vomiting. While on telemetry, she was noted to have nonsustained atrial tachycardia, but once again asymptomatic in this regard. Prior to hospitalization, she rides a stationary bicycle 3 days per week for at least 30 minutes and does so without chest pain or shortness of breath. She has not been treated recently for hypertension or dyslipidemia, stating that she treats it with diet and exercise. Review of systems: As above. Review of systems otherwise negative/unremarkable. Family history: No known premature CAD. Social history: She quit smoking greater than 50 years ago. Occasional alcohol. No drugs. Lives at home with her , Jeremy. She has 2 sons, 1 of which lives locally in the other 1 is on faculty at [employer]. She was unaccompanied today. Allergies Allergy/AdvReac Type Severity Reaction Status Date / Time peanut Allergy Severe Dyspnea Verified 06/22/21 18:15 hydrocodone Allergy Intermediate Itching Verified 03/09/21 14:06 codeine Allergy Mild Rash Verified 03/09/21 14:06 acetaminophen [From Endocet] Allergy Unknown CAN'T Verified 06/22/21 18:15 REMEMBER baclofen Allergy Unknown CAN'T Verified 06/22/21 18:15 REMEMBER fentanyl [From Duragesic] Allergy Unknown CAN'T Verified 06/22/21 18:15 REMEMBER gabapentin Allergy Unknown CAN'T Verified 06/22/21 18:15 REMEMBER hydromorphone AdvReac Intermediate N/V Verified 06/22/21 18:15 oxycodone AdvReac Intermediate Nausea, Verified 06/22/21 18:15 vertigo phenytoin AdvReac Intermediate Vertigo Verified 06/22/21 18:15 Home Medications Medication Instructions Recorded Confirmed Type lorazepam 0.5 mg tablet 0.25 - 0.5 mg PO Q OTHER DAY #30 11/11/18 06/22/21 History tab multivitamin (Daily Multi-Vitamin) 1 tab PO QAM 12/17/18 06/22/21 History venlafaxine 150 mg 150 mg PO QAM cap 12/17/18 06/22/21 History capsule,extended release 24 hr coQ10 (ubiquinol) 100 mg capsule 100 mg PO QAM 12/16/20 06/22/21 History ibuprofen-diphenhydramine citrate 1 cap PO HS PRN 06/22/21 06/22/21 History 200 mg-38 mg tablet (Advil PM) omega-3 fatty acids 1,000 mg 1,000 mg PO DAILY 06/22/21 06/22/21 History capsule Patient History Medical History Anxiety Depression Fibromyalgia History of diverticulitis History of seizures as a child At age 11 History of squamous cell carcinoma Meningioma Removed (2005) Osteoarthritis SCC (squamous cell carcinoma) Surgical History History of hip replacement Right History of squamous cell carcinoma excision S/P brain surgery Removal of meningioma (2005) S/P cholecystectomy S/P knee surgery Right S/P tonsillectomy Family History Father Diverticulitis Colorectal cancer Mother Herpes zoster infection Sister Sinus symptom Denies family history of Ovarian cancer Prostate cancer Myocardial infarction Breast cancer Lung cancer Stroke Social History Smoking Status: Former smoker Second Hand Exposure: No; Do You Dip or Chew Tobacco: No; Tobacco Cessation Education Requested by Patient: No Hx Alcohol Use: Yes Alcohol type: wine Hx Substance Use: No Preferred Language: Greenlandic Communication Ability: Effective Visual Impairment: No Limitations Hearing Ability: Normal Asphalt Mixer Required: No Beliefs That Will Affect Care: None marital status: Current Living Situation: Spouse current occupational status: retired Other Information That Helps Us Care for You: No Feels Safe at Home: Yes Safety Concerns: Feels Safe At This Time Dental Care, Regularly: Yes Physical Activity Frequency: Daily Seatbelt Use: always Sunscreen Use: Yes Assistive Devices: None Physical Exam Physical Exam: Gen.: No acute distress. Alert. HEENT: Anicteric sclera. Neck: No JVD. No bruits. Normal carotid upstrokes bilaterally. Cardiac: PMI was nondisplaced. No ventricular heave. Regular. Normal S1-S2. No murmurs, rubs, or gallops. Pulmonary: Clear to auscultation bilaterally without wheezes, rales, or rhonchi. Abdomen: Soft, nondistended, with normoactive bowel sounds. No bruits noted. Right lower and left lower quadrant tenderness without obvious mass. Extremities: 2+ radial pulses bilaterally. 2+ posterior tibialis pulses bilater ally. No edema or cyanosis. Results & Data ([facility]) Vital Signs (Past 12 Hours) Vital Signs Temp Pulse Pulse Resp BP Pulse Ox Pulse Ox 06/23/21 06:45 36.8 C 78 20 154/54 H 95 06/23/21 06:27 70 06/23/21 03:18 36.6 C 73 16 178/77 H 97 06/23/21 02:44 36.6 C 73 17 178/77 H 97 97 06/23/21 01:00 72 18 175/80 H 96 06/22/21 23:00 36.9 C 82 18 175/80 H 96 Laboratory Results Laboratory Results - last 24 hr 06/22/21 06/22/21 06/22/21 17:30 17:30 17:30 WBC 8.76 RBC 4.59 Hgb 16.2 H Hct 47.2 H MCV 102.8 H MCH 35.3 H MCHC 34.3 RDW Std Deviation 50.2 H RDW Coeff of Shruti 13.4 Plt Count 288 MPV 11.6 H Immature Gran % (Auto) 0.1 Neut % (Auto) 70.4 Lymph % (Auto) 18.7 [place] % (Auto) 9.7 Eos % (Auto) 0.9 Baso % (Auto) 0.2 Neut # (Auto) 6.16 Lymph # (Auto) 1.64 [place] # (Auto) 0.85 H Eos # (Auto) 0.08 Baso # (Auto) 0.02 Immature Gran # (Auto) 0.01 Sodium 140 Potassium Chloride 105 Carbon Dioxide 22 Anion Gap 13 H BUN 27 H Creatinine 1.04 Est Cr Clr Drug Dosing 39.7 Est GFR ( Amer) 58.4 Est GFR (Non-Af Amer) 50.3 BUN/Creatinine Ratio 26.0 H Glucose 119 H Calcium 10.8 H Total Bilirubin 0.5 AST ALT 32 Alkaline Phosphatase 82 Troponin I < 0.03 Total Protein 7.9 Albumin 4.9 Globulin 3.0 Albumin/Globulin Ratio 1.6 Triglycerides Cholesterol LDL Cholesterol, Calc VLDL Cholesterol, Calc HDL Cholesterol Cholesterol/HDL Ratio TSH 1.848 Urine Color Urine Appearance Urine pH Ur Specific [place] Urine Protein Urine Glucose (UA) Urine Ketones Urine Blood Urine Nitrite Urine Bilirubin Urine Urobilinogen Ur Leukocyte Esterase Urine WBC (Auto) Urine RBC (Auto) U Hyaline Cast (Auto) U Epithel Cells (Auto) Urine Bacteria (Auto) SARS-CoV-2, RNA, NAAT 06/22/21 06/22/21 06/22/21 18:57 19:37 21:07 WBC RBC Hgb Hct MCV MCH MCHC RDW Std Deviation RDW Coeff of Shruti Plt Count MPV Immature Gran % (Auto) Neut % (Auto) Lymph % (Auto) [place] % (Auto) Eos % (Auto) Baso % (Auto) Neut # (Auto) Lymph # (Auto) [place] # (Auto) Eos # (Auto) Baso # (Auto) Immature Gran # (Auto) Sodium Potassium 4.5 Chloride Carbon Dioxide Anion Gap BUN Creatinine Est Cr Clr Drug Dosing Est GFR ( Amer) Est GFR (Non-Af Amer) BUN/Creatinine Ratio Glucose Calcium Total Bilirubin AST 27 ALT Alkaline Phosphatase Troponin I Total Protein Albumin Globulin Albumin/Globulin Ratio Triglycerides Cholesterol LDL Cholesterol, Calc VLDL Cholesterol, Calc HDL Cholesterol Cholesterol/HDL Ratio TSH Urine Color Yellow Urine Appearance Clear Urine pH 5.5 Ur Specific [place] 1.021 Urine Protein Negative Urine Glucose (UA) Negative Urine Ketones Trace H Urine Blood Negative Urine Nitrite Negative Urine Bilirubin Negative Urine Urobilinogen Negative Ur Leukocyte Esterase Trace H Urine WBC (Auto) 5-10 H Urine RBC (Auto) 0-4 U Hyaline Cast (Auto) 1-5 U Epithel Cells (Auto) 10-20 H Urine Bacteria (Auto) Negative SARS-CoV-2, RNA, NAAT NEGATIVE 06/23/21 06/23/21 06/23/21 02:49 02:49 08:22 WBC 8.37 RBC 3.97 L Hgb 14.2 Hct 40.4 MCV 101.8 H MCH 35.8 H MCHC 35.1 RDW Std Deviation 49.4 H RDW Coeff of Shruti 13.2 Plt Count 254 MPV 11.0 H Immature Gran % (Auto) 0.1 Neut % (Auto) 54.0 Lymph % (Auto) 32.4 [place] % (Auto) 12.1 Eos % (Auto) 1.2 Baso % (Auto) 0.2 Neut # (Auto) 4.52 Lymph # (Auto) 2.71 [place] # (Auto) 1.01 H Eos # (Auto) 0.10 Baso # (Auto) 0.02 Immature Gran # (Auto) 0.01 Sodium 142 Potassium 4.1 Chloride 109 H Carbon Dioxide 25 Anion Gap 8 BUN 21 Creatinine 0.77 Est Cr Clr Drug Dosing 53.6 Est GFR ( Amer) 83.9 Est GFR (Non-Af Amer) 72.4 BUN/Creatinine Ratio 27.3 H Glucose 98 Calcium 9.8 Total Bilirubin 0.6 AST 27 ALT 24 Alkaline Phosphatase 72 Troponin I 0.03 < 0.03 Total Protein 6.8 Albumin 4.2 Globulin 2.6 Albumin/Globulin Ratio 1.6 Triglycerides 119 Cholesterol 165 LDL Cholesterol, Calc 89 VLDL Cholesterol, Calc 24 HDL Cholesterol 52 Cholesterol/HDL Ratio 3.2 TSH Urine Color Urine Appearance Urine pH Ur Specific [place] Urine Protein Urine Glucose (UA) Urine Ketones Urine Blood Urine Nitrite Urine Bilirubin Urine Urobilinogen Ur Leukocyte Esterase Urine WBC (Auto) Urine RBC (Auto) U Hyaline Cast (Auto) U Epithel Cells (Auto) Urine Bacteria (Auto) SARS-CoV-2, RNA, NAAT Diagnostic Findings Telemetry personally reviewed: Predominantly sinus rhythm. Short runs of atrial tachycardia, nonsustained, < 10 beats in duration. ECG personally reviewed from 06/22/2021 at 5:07 p.m.: Sinus tachycardia with PVC and consecutive PACs at 101 beats per minute. Inferior and anterior T-wave inversion. Prolonged QT. ECG 12/21/2020 at 12:33 p.m.: Sinus with sinus arrhythmia 92 beats per minute. Normal T-waves. CT abdomen/pelvis 06/22/2021: Diverticulosis. Small to moderate hiatal hernia. Echo 06/23/2021: Preliminary review demonstrated normal LV systolic function and wall motion. Formal review to follow. Medications Administered Current Inpatient Medications Enoxaparin Sodium (Enoxaparin Inj 40 Mg/0.4 Ml Syr) 40 mg SQ Q24H [facility] Stop: 07/23/21 08:59 Last Admin: 06/23/21 08:26 Dose: 40 mg Documented by: Lactated Ringer's (Lr) 1,000 mls @ 80 mls/hr IV .[id number] [facility] Stop: 07/23/21 02:43 Last Admin: 06/23/21 04:29 Dose: 80 mls/hr Documented by: Lorazepam (Lorazepam 0.5 Mg Tab) 0.25 mg PO Q48H [facility] Stop: 07/23/21 08:59 Last Admin: 06/23/21 08:27 Dose: 0.25 mg Documented by: Lorazepam (Lorazepam 0.5 Mg Tab) 0.5 mg PO Q48H [facility] Stop: 07/24/21 08:59 Metoprolol Tartrate (Metoprolol Tartrate 1 Mg/Ml Vial) 5 mg IV Q4H PRN; Protocol PRN Reason: Blood Pressure - High Stop: 07/23/21 02:43 Nitroglycerin (Nitroglycerin Sl 0.4 Mg/Tab Tab) 0.4 mg SL UD PRN PRN Reason: Chest Pain Stop: 07/23/21 02:43 Ondansetron HCl (Ondansetron Inj 2 Mg/Ml 2 Ml Vial) 4 mg IV Q6H PRN PRN Reason: Nausea Stop: 07/23/21 02:43 Last Admin: 06/23/21 03:10 Dose: 4 mg Documented by: Polyethylene Glycol (Polyethylene (Miralax) 17 Gm Pack) 17 gm PO DAILY PRN PRN Reason: Constipation Stop: 07/23/21 02:43 Venlafaxine HCl (Venlafaxine Hcl Xr 150 Mg Capxr) 150 mg PO QAM [facility] Stop: 07/23/21 08:59 Last Admin: 06/23/21 08:27 Dose: 150 mg Documented by: PG Care Time/CCT Total # of Minutes Spent Total Time Spent with Patient: Total time spent is greater than 50% in coordination of care (as documented) at patient's floor/unit and/or counseling patient: Coding Level of Care Code 31822 Office/Outpt Visit, Est Diagnoses Abnormal ECG R94.31 Hypertension I10 Paroxysmal atrial tachycardia I47.1 Prolonged QT interval R94.31 Dizziness R42
[2021-06-23] MEDS ORDERED: OPTIRAY 320 100ml IV ONE (15:37)
--- NOTE | 2021-06-23 16:09 | CT Scan Report ---
CT head/brain wo/w con CLINICAL HISTORY: Hx meningoma resection, weakness, QT/T changes TECHNIQUE: Contiguous axial CT images of the head from the base of the skull to the vertex before and after intravenous administration of IV contrast and submitted for interpretation. Automated dose low ering techniques and/or adjustment according to patient size were utilized for this examination. COMPARISON: Comparison is made to CT head 08/27/2013 FINDINGS: Postsurgical changes are seen in the right frontal lobe with associated encephalomalacia. No acute ab normalities are seen, no hemorrhage and no evidence of recurrent disease. Imaged portions of the paranasal sinuses and mastoid air cells are clear. The orbits appear normal. There are no acute fractures of the calvaria or scalp swelling. IMPRESSION: Postsurgical changes of right frontal craniotomy are unchanged. No evidence of recurrent disease. No acute abnormalities. ACT 112: Negative or not required by law. Electronically signed by: Deven Beltran M.D. 06/23/2021 4:08 PM
--- NOTE | 2021-06-23 16:55 | Hospitalist Progress Note ---
Date of Service June 23, 2021 Assessment & Plan (1) Weakness: Plan: Weakness Fatigue, dull abdominal pain and nausea, global weakness for 3-4 days in the setting of cutting her venlafaxine dose in half. Previously on venlafaxine daily for 30 years with no dose changes. Also down tapered lorazepam, would like to get off of these medications No electrolyte imbalances on admission CTA/P: No acute findings Venlafaxine, lorazepam resumed Patient subjectively improving but not yet normal. Does not feel safe for home and feels improved, but still more weak than her baseline Does have new EKG abnormalities as above, cardiac evaluation as below PT/OT. Candidate for home versus inpatient rehab CThead with contrast: History of post meningioma resection, postsurgical changes remain and unchanged. No acute findings or abnormalities. (2) EKG abnormalities: Plan: - T wave inversion in inferior leads and anterolateral leads, new from EKG done in December 2020, without chest pain/palpitations/SOB and an initial troponin < .03. Troponin negative TTE without reduced EF EKG: NSR, diffuse T wave inversion and prolonged QT. No territorial ischemic changes. Cardiology consulted, low suspicion for ACS CThead with and without contrast obtained given past history of meningioma with resection and EKG changes compatible with neurologic involvement. CT without acute findings or mass. Patient with borderline prolonged QT, she has been stable on venlafaxine for long period of time and has had normal QT previously. Optimize electrolytes, EKG daily at this time. If recurrent atrial tachycardia we will add low-dose metoprolol daily. Patient hypertensive intermittently with some anxiety and possible medication withdrawal as above. Had metoprolol honing machine set up operator tool, has not gotten this today. Blood pressure was elevated to 170s, this has since normalized to 117/73 without antihypertensive treatment. Defer additional antihypertensives at this time. Daily EKG (3) Depression: Plan: Venlafaxine 150 mg daily, had cut this in half 3 to 4 days ago as noted in an attempt to wean Given patient's symptoms would recommend a very slow outpatient wean of no more than 20% dose reduction weekly/biweekly (4) Hypertension: Plan: -Per tensive in the morning BP 117/73 in afternoon, no additional antihypertensives given today Continue to follow (5) Hyperlipidemia: Plan: - Being managed with diet and exercise. - Cholesterol 165, LDL 89, HDL 52, triglycerides 119 (6) Rose's palsy: Plan: -Diagnosed several years ago, patient reports residual effects include L sided facial droop. No new focal deficits today. Plan: -Observation medsurg with tele. PT/OT recommending home versus rehab, patient does not feel safe for home. If strength has not returned to baseline tomorrow we will pursue temporary placement, otherwise medically doing well -SCDs, Lovenox for DVT ppx. -Full Code. Admission and Anticipated Discharge Date Admission Date: June 22, 2021 Subjective Patient is seen at the bedside today. No vertigo today. She reports she still feels weak and fatigued," absolutely not ready to go home ". She reports her abdominal discomfort has resolved. Denies chest pain, chest pressure, shortness of breath, difficulty breathing today. Does have a headache with increased blood pressure, no vision change. Denies focal weakness, but feels she is fatigued all over although somewhat less since yesterday. Lightheadedness and dizziness have not resolved but are improved. Right lower quadrant abdominal pain not present at time of bedside assessment. Review of Systems Review of Systems: All systems reviewed & are unremarkable except as noted in Subjective Physical Exam Physical Exam: General: A&Ox3. NAD. Cooperative. HEENT: Atraumatic, normocephalic. Visual acuity and hearing intact. Left-sided facial asymmetry, no acute change per patient. No other facial deficits Pulm: CTAB A&P. -wheezes, -rales, -rhonchi. Symmetrical chest rise. No increase in work of breathing. No respiratory distress. Cardiac: RRR, -mrg. Radial pulses intact and symmetrical. Abdominal: Nontender, nondistended, soft. BS present. Extremities: PT and radial pulses intact bilaterally. Sensation to soft touch intact in hands and feet bilaterally without asymmetry. Supply Assistant strength, ankle dorsiflexion/plantar flexion, elbow flexion, and hip flexion intact and 4+/5 bilaterally, patient feels subjectively weak compared to her normal. Results & Data Results & Data ([facility]) Vital Signs (Past 12 Hours) Vital Signs Temp Pulse Pulse Pulse Resp BP Pulse Ox 06/23/21 15:30 36.5 C 98 H 18 117/73 93 06/23/21 14:17 115 H 06/23/21 11:12 36.7 C 81 18 171/77 H 96 06/23/21 06:45 36.8 C 78 20 154/54 H 95 06/23/21 06:27 70 PG Care Time/CCT Total # of Minutes Spent Total Time Spent with Patient: Total time spent is greater than 50% in coordination of care (as documented) at patient's floor/unit and/or counseling patient: Coding Level of Care Code 46616 Subseq Obs Care Lvl 2 Diagnoses EKG abnormalities R94.31 Weakness R53.1 Depression F32.9 Hypertension I10 Hyperlipidemia E78.5 Rose's palsy G51.0
--- NOTE | 2021-06-23 19:34 | XCELERA ---
[id number]
[2021-06-23] MEDS ORDERED: MELATONIN 3 MG TAB PO PRN (21:50)
[2021-06-24] MEDS ORDERED: LORazepam 0.5 MG TAB PO STA (03:28)
[2021-06-24 06:21] LABS: Basophils # (auto) 0.03 K/uL (0-0.2); Basophils % (auto) 0.4 %; Eosinophils # (auto) 0.14 K/uL (0-0.5); Hematocrit (blood only) 34.9 % (37-47); Hemoglobin 12.3 g/dL (12.0-16.0); Immature Granulocytes # (auto) 0.01 K/uL (0.00-0.02); Immature Granulocytes % (auto) 0.1 %; Lymphocytes # (auto) 2.56 K/uL (1.2-3.4); Lymphocytes % (auto) 35.8 %; Mean Corpuscular Hemoglobin 35.9 pg (25-34); Mean Corpuscular Hgb Conc 35.2 g/dL (32-36); Mean Corpuscular Volume 101.7 fL (80-100); Mean Platelet Volume 10.5 fL (7.4-10.4); Monocytes # (auto) 0.97 K/uL (0.11-0.59); Monocytes % (auto) 13.6 %; Neutrophils # (auto) 3.44 K/uL (1.4-6.5); Neutrophils % (auto) 48.1 %; Platelet Count 230 K/uL (130-400); RDW Standard Deviation 48.3 fL (36.4-46.3); Red Blood Count 3.43 M/uL (4.2-5.4); White Blood Count 7.15 K/uL (4.8-10.8)
[2021-06-24 06:44] LABS: BUN Creatinine Ratio 17.2 (10-20); Calcium 9.3 mg/dl (8.5-10.1); Creatinine Clr Calc Pharmacy 40.9 ml/min; Est GFR (African American) 61.9 ml/min; Est GFR (Non-African American) 53.4 ml/min; Potassium 3.7 mmol/L (3.5-5.1)
[2021-06-24] MEDS: VENLAFAXINE HCL XR 150 MG CAPXR PO SCH (08:28)
[2021-06-24] MEDS: ENOXAPARIN INJ 40 MG/0.4 ML SYR SQ SCH (08:28)
[2021-06-24] MEDS ORDERED: LORazepam 0.5 MG TAB PO SCH (09:00)
--- NOTE | 2021-06-24 12:30 | Electrocardiogram Report ---
Test Reason : Blood Pressure : / mmHG Vent. Rate : 101 BPM Atrial Rate : 101 BPM P-R Int : 170 ms QRS Dur : 066 ms QT Int : 378 ms P-R-T Axes : 074 037 263 degrees QTc Int : 490 ms Sinus tachycardia with occasional Premature ventricular complexes Prolonged QT Abnormal ECG When compared with ECG of 21-DEC-2020 12:33, Premature ventricular complexes are now Present T wave inversion now evident in Inferior leads T wave inversion now evident in Anterolateral leads Confirmed by Abelino Ma ([id number]) on 06/24/2021 12:30:19 PM Referred By: REFERRED SELF Confirmed By:Abelino Ma
--- NOTE | 2021-06-24 17:05 | Discharge Summary ---
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 This seemingly came out of nowhere and has been debilitating as she is typically fairly active. This has been accompanied by mild nausea and a dull abdominal pain. She is otherwise well, without fever/chills, myalgias, shortness of breath, cough, URI symptoms, chest pain, palpitations, orthopnea, PND, edema, vomiting, diarrhea, constipation, focal weakness, numbness/tingling, speech difficulties. No change in her appetit e, no sick contacts, she is vaccinated and boosted for COVID-19 and test is negative in ED today. In ED, patient is hypertensive with BP 175/80, otherwise VS wnl. Routine lab work significant for BMP 27, glucose 119, Ca++ 10.8, otherwise wnl, TSH wnl, UA with 5-10 WBCs, trace leuk est with 10-20 epi cells. EKG demonstrated T wave inversions in inferior and anterolateral leads. Initial troponin negative. COVID-19 neg. Of note, she is currently weaning off her daily Ativan and Venlafaxine, noting she reduced Ativan from 1 mg to .5 mg over the past 2 weeks or so and actually stopped Ativan entirely last week. She had previously been taking this for years. She is also on 150 mg venlafaxine, recently stopped this entirely 3-4 days ago. She states she wishes not to be dependent on these medications. Principal Diagnosis Medication withdrawal Discharge Exam General: A&Ox3. NAD. Cooperative. HEENT: Atraumatic, normocephalic. Visual acuity and hearing intact. Left-sided facial asymmetry, no acute change per patient. No other facial deficits Pulm: CTAB A&P. -wheezes, -rales, -rhonchi. Symmetrical chest rise. No increase in work of breathing. No respiratory distress. Cardiac: RRR, -mrg. Radial pulses intact and symmetrical. Abdominal: Nontender, nondistended, soft. BS present. Extremities: PT and radial pulses intact bilaterally. Sensation to soft touch intact in hands and feet bilaterally without asymmetry. 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, ankle dorsiflexion/plantar flexion, elbow flexion, and hip flexion intact and 4+/5 bilaterally Discharge Data Allergies Allergy/AdvReac Type Severity Reaction Status Date / Time peanut Allergy Severe Dyspnea Verified 06/22/21 18:15 hydrocodone Allergy Intermediate Itching Verified 03/09/21 14:06 codeine Allergy Mild Rash Verified 03/09/21 14:06 acetaminophen [From Endocet] Allergy Unknown CAN'T Verified 06/22/21 18:15 REMEMBER baclofen Allergy Unknown CAN'T Verified 06/22/21 18:15 REMEMBER fentanyl [From Duragesic] Allergy Unknown CAN'T Verified 06/22/21 18:15 REMEMBER gabapentin Allergy Unknown CAN'T Verified 06/22/21 18:15 REMEMBER hydromorphone AdvReac Intermediate N/V Verified 06/22/21 18:15 oxycodone AdvReac Intermediate Nausea, Verified 06/22/21 18:15 vertigo phenytoin AdvReac Intermediate Vertigo Verified 06/22/21 18:15 Consultations 06/22/21 20:10 ED Decision to Admit Stat 06/23/21 02:44 Consult Cardiology Routine Ordered Studies 06/22/21 18:08 CT abd pelvis IV con only Stat 06/23/21 12:34 CT head/brain wo/w con Routine Hospital Course (1) EKG abnormalities: Chantelle is an 80-year-old female with a past medical history of meningioma with resection many years ago, Rose's palsy, anxiety on Ativan and vaccine, and hypertension who presented with weakness and dizziness following attempted self taper of venlafaxine and Ativan. She did have some T wave inversions on initial evaluation, and was admitted for dizziness/weakness with cardiac evaluation. Echo showed normal EF 65 to 70% with no wall motion abnormalities. Given diffuse T wave changes and history of meningioma obtain CT of the head with contrast, this did not show any acute findings. Patient did symptomatically improve with resumption of her home medications. To do as outpatient: 1. Slow controlled taper of venlafaxine/Ativan at patient preference. Patient to follow-up on this with her PCP, likely no more than 20% dose decrease every other week of 1 in the time with close follow-up. 2. Repeat EKG in 1 week, patient borderline QT prolonged. Has tolerated venlafaxine in the past without prolongation 3. Home physical therapy 4. Routine PCP follow - T wave inversion in inferior leads and anterolateral leads, new from EKG done in December 2020, without chest pain/palpitations/SOB and an initial troponin < .03. - Ddx includes CAD vs withdrawal induced as she has recently stopped taking Ativan and Venlafaxine which she reportedly has been on for years. No known CAD, does have the following risk factors: age, HTN, HLD - Will trend troponin Q6h x2, EKGs with any new onset chest pain or anginal equivalent. - Echo with preserved ejection fraction 65%, no wall motion abnormalities - Cardiology consulted, no acute ACS. (2) Weakness: - With fatigue, vague+dull abdominal pain and nausea, for 3-4 days. Suspect this might be related to stopping her venlafaxine and Ativan. She does not have any electrolyte imbalances, evidence of dehydration, or anemia to suggest other causes. CTAP did not show acute process that could be causing abdominal pain + nausea. No focal motor or sensory deficits. - Will give IVF at midnight while pt is NPO, monitor CBC and CMP in AM. (3) Depression: -With anxiety; previously on venlafaxine 150 mg, abruptly stopped this 3-4 days ago. Also on Ativan which she had been tapering from 1 --> .5 mg, however stopped this entirely about a week ago -Will restart these medications as patient really should taper off of this, her abrupt withdrawal is likely partially contributing to her weakness and fatigue, as well as HTN. (4) Hypertension: -175/60 today in ED, in the setting of recent,abrupt stop of venlafaxine and Ativan. Patient was previously managing BP with diet and exercise and reportedly had been at goal. Suspect it may be elevated as a symptom of withdrawal, however cannot rule out that it is due to cardiac dz. -Lopressor 5 mg PRN ordered for BP > 180/110. -Continue to monitor. (5) Hyperlipidemia: - Being managed with diet and exercise. (6) Rose's palsy: -Diagnosed several years ago, residual effects include L sided facial elder op. No new focal deficits -CT-H negative for acuit findings with contrast Total Time Total Time Spent Total Time Spent (In Minutes): Time spend day of discharge 40 minutes including direct patient care, documentation, review of labs and images, and coordination of care. Discharge Plan Discharge Items Patient Disposition: Home - Self-Care Reason For Visit: WEAKNESS, FATIGUE Discharge Diagnosis: Weakness, medication withdrawal Activity: Per Instructions section Non-emergency contact: Primary Care Provider Call non-emergency contact if: you have any medication questions, your symptoms worsen, your pain is not controlled, your pain is worsening and your pain is unusual for you Follow-up/Referrals: Manish Estrada MD [Primary Care Provider] - 07/29/21 11:15 am ([facility] 4. AT 1115) Diet: Regular Addtl Attending Provider Instructions: You are seen in the hospital for weakness which started 3 to 4 days after attempting to decrease the dose of your venlafaxine and Ativan. You did not have any electrolyte and balance is on admission. Your symptoms improved as your medication doses were restarted. You did undergo a cardiac evaluation, heart markers of heart damage were negative. An ultrasound of your heart did not show any acute abnormalities. Your EKG, and electrical pattern of heart activity, did show some diffuse changes that were not consistent with cardiac ischemia/heart damage due to low oxygen, but can be seen in some neurologic conditions. Due to this and your history of meningioma a repeat CT scan of the head was obtained. This was done with contrast and did not show any acute changes or acute abnormalities. Your EKG did show that a certain measurement, called QT, was borderline prolonged. Normal is less than 480, your measurement was 43. Various medications can contribute to this, review of your prior EKG showed that this had not been a problem in the past. Medications including your venlafaxine can cause us to be elevated, and it can put you at risk of [place] heart arrhythmias. Given your symptoms with decreasing the venlafaxine, it is recommended to continue this medication at this time but you should have regular EKG checks to make sure this does not continue to increase and have outpatient blood work to maintain normal electrolyte levels. As you taper your venlafaxine, this should be followed and will hopefully improve. If you experience any new or worsening symptoms, including those listed below, seek prompt medical evaluation. Due to your symptoms your venlafaxine was continued at 150 mg daily, and your last p.m. was initially increased back to alternating 0.5 mg with 0.25 mg every other day. It is reasonable to continue tapering these medications, but this should be done very slowly and carefully. Would not recommend a faster decrease then around 25% dose decrease every to every other week. If you continue to feel well it would be reasonable to start by decreasing venlafaxine from 150 mg daily to 112.5mg; please discuss this with your PCP on followup. Follow-up appointment is being scheduled for you with Dr. Estrada. You should be seen within 1 week. You should have a repeat BMP with magnesium check an EKG at that visit. You should receive a call to confirm your appointment, if you do not receive a call within 48 hours please contact his office at the number above. If you develop any new or worsening symptoms including fever, chills, sweats, chest pain, chest pressure, difficulty breathing, uncontrolled nausea/vomiting, rash, wheezing, passing out or nearly passing out, bleeding, black/bloody bowel movements, or other new or concerning symptoms please call your primary care physician, or call 911 for re-evaluation in the emergency department if you are very concerned. Pending Studies at Discharge: Yes Stand-Alone Forms: My [facility] FIA Formula E, Smoking Cessation Medications and DC Order Prescriptions: Continued multivitamin [Daily Multi-Vitamin] tablet 1 tab PO QAM RF: 0 lorazepam 0.5 mg tablet 0.25 - 0.5 mg PO Q OTHER DAY Qty: 30 RF: 0 venlafaxine 150 mg capsule,extended release 24hr 150 mg PO QAM RF: 0 coQ10 (ubiquinol) 100 mg Capsule 100 mg PO QAM RF: 0 omega-3 fatty acids 1,000 mg Capsule 1,000 mg PO DAILY RF: 0 Advil PM 200-38 mg Tablet 1 cap PO HS PRN (Reason: NEEDED) RF: 0 Discharge Orders: Discharge Order (Routine); Ordered 06/24/21 Ordered By: Alfa Milligan Admission Data Admit Date/Time: 06/22/21 21:28 Attending Provider: Alfa Milligan Admit Provider: Beny Degroot Primary Care Provider: Manish Estrada Other Providers: Beny Degroot ; Manish Piper Other Interventions: Discharge Summary Assessment (RN) Last Done: 06/24/21 16:20 Coding Level of Care Code D/C DAY MANAGEMENT >30 MINS Diagnoses EKG abnormalities R94.31 Weakness R53.1 Depression F32.9 Hypertension I10 Hyperlipidemia E78.5 Rose's palsy G51.0
--- NOTE | 2021-06-24 17:56 | Electrocardiogram Report ---
Test Reason : Blood Pressure : / mmHG Vent. Rate : 083 BPM Atrial Rate : 083 BPM P-R Int : 184 ms QRS Dur : 070 ms QT Int : 412 ms P-R-T Axes : 036 -06 209 degrees QTc Int : 484 ms Normal sinus rhythm Prolonged QT Abnormal ECG When compared with ECG of 22-JUN-2021 17:07, Premature ventricular complexes are no longer Present T wave inversion now evident in Lateral leads Confirmed by Abelino Ma ([id number]) on 06/24/2021 5:56:36 PM Referred By: REFERRED SELF Confirmed By:Abelino Ma
--- NOTE | 2021-06-24 22:27 | Electrocardiogram Report ---
Test Reason : Blood Pressure : / mmHG Vent. Rate : 094 BPM Atrial Rate : 094 BPM P-R Int : 222 ms QRS Dur : 070 ms QT Int : 390 ms P-R-T Axes : 026 -06 187 degrees QTc Int : 487 ms Sinus rhythm with 1st degree A-V block with Premature atrial complexes and Premature ventricular com plexes Minimal voltage criteria for LVH, may be normal variant T wave abnormality, consider inferior ischemia T wave abnormality, consider anterior ischemia T wave abnormality, consider lateral ischemia Prolonged QT Abnormal ECG When compared with ECG of 23-JUN-2021 10:10, Premature ventricular complexes are now Present Premature atrial complexes are now Present OR interval has increased T wave inversion less evident in Anterior leads Confirmed by Abelino Ma ([id number]) on 06/24/2021 10:27:26 PM Referred By: REFERRED SELF Confirmed By:Abelino Ma
== END 2021-06-24 16:58 | disposition home or self-care (01) ==
LOC: 2N 16:36 → ED 16:36 → SUATTDRO 21:28 → 2N 06-23 02:18

== ENCOUNTER 2021-07-08 07:27 | Inpatient (IN) ==
--- NOTE | 2021-07-06 12:08 | Anesthesiology Consultation ---
Date of Service July 06, 2021 Assessment & Plan (1) Encounter for pre-operative examination: - Case discussed with Dr. Coleman who advised PCP clearance prior to surgery. Awaiting PCP response to workload note. - check coags am DOS. - PCP office visit 07/01/2021 [facility]: "...sees Dr. Graham for the lorazepam and venlafaxine and is scheduled to see him this afternoon...currently taking 0.5 and 0.25mg every other day. ..back on 150mg effexor daily. Asking if patient is to schedule with Cardio/Dr Piper due to the abnormal EKG in the hospital. No current chest pain or chest pressure, no palpitations...Repeated EKG in office today - sinus rhythm with PAC and 1st degree AV block, possible LVH and ST-T changes...was compared to the EKG in the hospital which is similar...ECHO which showed mild LVH...statins not indicated at this time. Discussed that should she develope [sic] any chest pain, chest pressure or palpitations to contact the office or go to ER immediately. Keep visit as scheduled with Dr. 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 EKG demonstrated T wave inversions in inferior and anterolateral leads. Initial troponin negative...currently weaning off her daily Ativan and Venlafaxine...actually stopped Ativan entirely last week...also on 150 mg venlafaxine, recently stopped this entirely 3-4 days ago...wishes not to be dependent on these medications...Echo showed normal EF 65 to 70% with no wall motion abnormalities...diffuse T wave changes and history of meningioma obtain CT of the head with contrast, this did not show any acute findings...did symptomatically improve with resumption of her home medications. To do as outpatient: 1. Slow controlled taper of venlafaxine/Ativan at patient preference. Patient to follow-up on this with her PCP, likely no more than 20% dose decrease every other week of 1 in the time with close follow-up. 2. Repeat EKG in 1 week, patient borderline QT prolonged. Has tolerated venlafaxine in the past without prolongation - T wave inversion in inferior leads and anterolateral leads, new from EKG done in December 2020, without chest pain/palpitations/SOB and an initial troponin < .03. - Ddx includes CAD vs withdrawal induced as she has recently stopped taking Ativan and Venlafaxine which she reportedly has been on for years. No known CAD, does have the following risk factors: age, HTN, HLD - Will trend troponin Q6h x2, EKGs with any new onset chest pain or anginal equivalent. - Echo with preserved ejection fraction 65%, no wall motion abnormalities - Cardiology consulted, no acute ACS. Weakness...Suspect this might be related to stopping her venlafaxine and Ativan...does not have any electrolyte imbalances, evidence of dehydration, or anemia to suggest other causes. CTAP did not show acute process that could be causing abdominal pain + nausea. No focal motor or sensory deficits... Hypertension: 175/60 today in ED, in the setting of recent,abrupt stop of venlafaxine and Ativan...previously managing BP with diet and exercise and reportedly had been at goal. Suspect it may be elevated as a symptom of withdrawal, however cannot rule out that it is due to cardiac dz... Rose's palsy: Diagnosed several years ago, residual effects include L sided facial droop. No new focal deficits. CT-H negative for acuit findings with contrast..." - COVID screening: Per doorshaker on 07/06/2021: Travel screen negative, no known COVID-19 positive contacts or current COVID-19 related symptoms in past 2 weeks. Patient vaccinated. Surgeon arranging preop COVID testing, scheduled 07/06/2021. Awaiting results. Chart Review Chart Review: Pending: Refer to Additional Notes / Consult section and Patient NOT seen in Pre Admission Testing History Surgery Operation Date: 07/08/21 13:50 Proposed Procedures p Left Anterior Total Hip Arthroplasty - Lloyd Kumar DO Surgery re-scheduled since anesthesia review 03/2021. Height/Weight Height: 5 ft 5 in Weight: 63.503 kg Allergies Allergy/AdvReac Type Severity Reaction Status Date / Time hydrocodone Allergy Intermediate Itching Verified 07/06/21 10:45 codeine Allergy Mild Rash Verified 07/06/21 10:45 acetaminophen [From Endocet] Allergy Unknown CAN'T Verified 07/06/21 10:45 REMEMBER baclofen Allergy Unknown CAN'T Verified 07/06/21 10:45 REMEMBER fentanyl [From Duragesic] Allergy Unknown CAN'T Verified 07/06/21 10:45 REMEMBER gabapentin Allergy Unknown CAN'T Verified 07/06/21 10:45 REMEMBER hydromorphone AdvReac Intermediate N/V Verified 07/06/21 10:45 oxycodone AdvReac Intermediate Nausea, Verified 07/06/21 10:45 vertigo phenytoin AdvReac Intermediate Vertigo Verified 07/06/21 10:45 Medications Home Medications Medication Instructions Recorded Confirmed Last Taken multivitamin (Daily Multi-Vitamin) 1 tab PO QAM 12/17/18 07/06/21 06/22/21 venlafaxine 150 mg 150 mg PO QAM cap 12/17/18 07/06/21 06/22/21 capsule,extended release 24 hr coQ10 (ubiquinol) 100 mg capsule 100 mg PO QAM 12/16/20 07/06/21 06/22/21 omega-3 fatty acids 1,000 mg 1,000 mg PO QAM 06/22/21 07/06/21 06/22/21 capsule lorazepam 0.5 mg tablet 0.25 - 0.5 mg PO QAM #30 tab 07/01/21 07/06/21 Unknown Past Medical History Medical History (Updated 07/06/21 @ 11:53 by Farhana Resendez PA-C) Anxiety Rose's palsy HX LEFT SIDE 2008 -DROOPS SLIGHTLY Depression Dizziness AND WEAKNESS-ATTRIBUTED TO ABRUPT STOP OF MEDICATIONS-RESOLVED SINCE HAS BEEN TAKING HER MEDS PRESCRIBED Fibromyalgia History of diverticulitis History of seizures as a child At age 11 History of squamous cell carcinoma Meningioma Removed (2005) Osteoarthritis Paroxysmal atrial tachycardia Prolonged QT interval SCC (squamous cell carcinoma) Past Family History Family History Father Diverticulitis Colorectal cancer Mother Herpes zoster infection Sister Sinus symptom Denies family history of Ovarian cancer Prostate cancer Myocardial infarction Breast cancer Lung cancer Stroke Past Surgical History Surgical History History of colonoscopy History of hip replacement Right History of squamous cell carcinoma excision S/P brain surgery Removal of meningioma (2005) S/P cholecystectomy S/P knee surgery Right S/P tonsillectomy Social History Smoking Status: Never smoker tobacco type: cigarettes Do You Dip or Chew Tobacco: No Hx Alcohol Use: No Alcohol type: wine alcohol intake frequency: a few times a month Hx Substance Use: No substance use type: does not use Lab Results Anesthesia Preop Results Results Anesthesia Widget: WBC 7.15 K/uL (4.8-10.8) 06/24/21 Hgb 12.3 g/dL (12.0-16.0) 06/24/21 Hct 34.9 % (37-47) L 06/24/21 Plt 230 K/uL (130-400) 06/24/21 Na 140 mmol/L (136-145) 07/01/21 K 4.2 mmol/L (3.5-5.1) 07/01/21 Cl 105 mmol/L (98-107) 07/01/21 CO2 26 mmol/L (21-32) 07/01/21 BUN 24 mg/dl (6-23) H 07/01/21 Creat 0.96 mg/dl (0.6-1.2) 07/01/21 Glucose Level 87 mg/dl (70-99(Fasting)) 07/01/21 TSH 1.848 uIu/ml (0.300-4.500) 06/22/21 Urine Color Yellow 06/22/21 Urine Appearance Clear (Clear) 06/22/21 Urine pH 5.5 (4.5-7.5) 06/22/21 Urine Specific [place] 1.021 (1.000-1.030) 06/22/21 Urine Protein Negative (Negative) 06/22/21 Urine Glucose (UA) Negative (Negative) 06/22/21 Urine Ketones Trace (Negative) H 06/22/21 Urine Blood Negative (Negative) 06/22/21 Urine Nitrite Negative (Negative) 06/22/21 Urine Bilirubin Negative (Negative) 06/22/21 Urine Urobilinogen Negative (Negative) 06/22/21 Urine Leukocyte Esterase Trace (Negative) H 06/22/21 Urine WBC (Auto) 5-10 /hpf (0-5) H 06/22/21 Urine RBC (Auto) 0-4 /hpf (0-4) 06/22/21 Urine Hyaline Casts (Auto) 1-5 /lpf (0-5) 06/22/21 Urine Epithelial Cells (Auto) 10-20 /lpf (0-5) H 06/22/21 Urine Bacteria (Auto) Negative (Negative) 06/22/21 SARS-CoV-2, RNA, NAAT NEGATIVE (NEGATIVE) 06/22/21 Testing Electrocardiogram Date: 07/01/21 Sinus rhythm with PACs with 1st degree AC block, rate 89 bpm Possible LVH with secondary repolarization abnormality Extensive ST-T changes are probably due to ventricular hypertrophy Chest X-Ray Date: 12/21/20 FINDINGS: Cardiomediastinal and hilar silhouettes are within normal limits. Calcified plaque the thoracic aorta. No pneumothorax, pleural effusion, airspace consolidation or overt pulmonary edema. Unchanged linear scarring of the inferior segment lingula. Hyperinflation. Degenerative changes of the shoulders and spine. Chronic L1 compression deformity. Surgical clips of the upper abdomen. IMPRESSION: No acute process. Echocardiogram Date: 06/23/21 EF 65-70% No regional wall motion abnormalities Mild cLVH Normal LV size and systolic function No significant valvular abnormalities Grade I diastolic dysfunction Other Testing Abdomen/pelvis CT 06/22/2021 FINDINGS: The imaged lower chest appears unremarkable. No pneumatosis or pneumoperitoneum. Benign-appearing hypodense foci of the spleen are unchanged measuring up to 2.3 cm. Mildly atrophic pancreas. The adrenal glands are within normal limits. Cholecystectomy. 1.6 cm cyst of the inferior right hepatic lobe. Patency of the hepatic and portal veins. Symmetric enhancement of the kidneys without hydronephrosis. 1.1 cm right renal cyst. Additional subcentimeter renal hypodensities are too small to characterize. No hydronephrosis. Urinary bladder is unremarkable. Calcifications involving the uterus suggestive of calcified fibroids. Atherosclerosis of the aorta without aneurysm. No lymphadenopathy. Small to moderate sized hiatal hernia. No bowel obstruction or bowel wall thickening. Colonic diverticulosis without acute diverticulitis. Normal appendix. Tiny fat filled periumbilical hernia. Unremarkable soft tissues. Right hip total joint arthroplasty. Severe left hip osteoarthritis. Chronic appearing L1 compression deformity. IMPRESSION: 1. Colonic diverticulosis without acute diverticulitis. 2. No bowel obstruction or bowel wall thickening. Normal appendix. 3. Small to moderate hiatal hernia. 4. Additional findings as above. Head CT 06/23/2021 FINDINGS: Postsurgical changes are seen in the right frontal lobe with associated encephalomalacia. No acute abnormalities are seen, no hemorrhage and no evidence of recurrent disease. Imaged portions of the paranasal sinuses and mastoid air cells are clear. The orbits appear normal. There are no acute fractures of the calvaria or scalp swelling. IMPRESSION: Postsurgical changes of right frontal craniotomy are unchanged. No evidence of recurrent disease. No acute abnormalities.
--- NOTE | 2021-07-07 14:36 | History & Physical Report ---
Date of Service July 07, 2021 Assessment & Plan (1) Osteoarthritis of left hip: We will proceed with a left anterior total of arthroplasty. Postoperatively she will be started on aspirin for DVT prophylaxis and kept overnight in the hospital for postoperative medical management. She plans to use energy physical therapy upon discharge. History of Present Illness Chief Complaint: Osteoarthritis of the left hip. Primary Care Provider: Manish Estrada MD Chantelle is a pleasant 80-year-old female who underwent a right hip replacement in 2014 by another provider. She is doing fairly well with that. Unfortunately she is dealing with a lot of left hip pain. X-rays and clinical examination have been diagnostic for advanced osteoarthritis of the left hip. After failing conservative treatment, she has elected proceed with a left anterior total hip arthroplasty. Allergies Allergy/AdvReac Type Severity Reaction Status Date / Time hydrocodone Allergy Intermediate Itching Verified 07/06/21 10:45 codeine Allergy Mild Rash Verified 07/06/21 10:45 acetaminophen [From Endocet] Allergy Unknown CAN'T Verified 07/06/21 10:45 REMEMBER baclofen Allergy Unknown CAN'T Verified 07/06/21 10:45 REMEMBER fentanyl [From Duragesic] Allergy Unknown CAN'T Verified 07/06/21 10:45 REMEMBER gabapentin Allergy Unknown CAN'T Verified 07/06/21 10:45 REMEMBER hydromorphone AdvReac Intermediate N/V Verified 07/06/21 10:45 oxycodone AdvReac Intermediate Nausea, Verified 07/06/21 10:45 vertigo phenytoin AdvReac Intermediate Vertigo Verified 07/06/21 10:45 Home Medications Medication Instructions Recorded Confirmed Type multivitamin (Daily Multi-Vitamin) 1 tab PO QAM 12/17/18 07/06/21 History venlafaxine 150 mg 150 mg PO QAM cap 12/17/18 07/06/21 History capsule,extended release 24 hr coQ10 (ubiquinol) 100 mg capsule 100 mg PO QAM 12/16/20 07/06/21 History omega-3 fatty acids 1,000 mg 1,000 mg PO QAM 06/22/21 07/06/21 History capsule lorazepam 0.5 mg tablet 0.25 - 0.5 mg PO QAM #30 tab 07/01/21 07/06/21 History Past Med/Surg History Medical History Anxiety 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 Depression Dizziness AND WEAKNESS-ATTRIBUTED TO ABRUPT STOP OF MEDICATIONS-RESOLVED SINCE HAS BEEN TAKING HER MEDS PRESCRIBED Fibromyalgia History of diverticulitis History of seizures as a child At age 11 History of squamous cell carcinoma Meningioma Removed (2005) Osteoarthritis Paroxysmal atrial tachycardia Prolonged QT interval SCC (squamous cell carcinoma) Surgical History History of colonoscopy History of hip replacement Right History of squamous cell carcinoma excision S/P brain surgery Removal of meningioma (2005) S/P cholecystectomy S/P knee surgery Right S/P tonsillectomy Family History Father Diverticulitis Colorectal cancer Mother Herpes zoster infection Sister Sinus symptom Denies family history of Ovarian cancer Prostate cancer Myocardial infarction Breast cancer Lung cancer Stroke Social History Smoking Status: Former smoker Second Hand Exposure: No; Hx Alcohol Use: No Hx Substance Use: No Preferred Language: Luxembourger Communication Ability: Effective Visual Impairment: No Limitations Hearing Ability: Normal Mortgage Lender Required: No Beliefs That Will Affect Care: None marital status: Current Living Situation: Spouse current occupational status: retired Feels Safe at Home: Yes Dental Care, Regularly: Yes Physical Activity Frequency: Daily Seatbelt Use: always Sunscreen Use: Yes Assistive Devices: Glasses and Walker Review of Systems All systems reviewed & are unremarkable except as noted in HPI & below. Physical Exam On physical examination of the left hip, she walks with a slightly antalgic gait. She has pain with range of motion of her hip. All of her pain is located in her groin. Constitutional WD/WN, vitals as above Eyes PERRL, conjunctivae normal, anicteric sclerae ENMT external ear and nose normal, oropharynx normal Neck trachea midline, no thyromegaly Respiratory normal respiratory effort Cardiovascular RRR, no murmur, no edema Gastrointestinal (Abdomen) normal bowel sounds, soft, nontender, no hepatosplenomegaly Psychiatric A+Ox3, euthymic affect Results & Data Results & Data Laboratory Results . Diagnostic Findings X-rays of the left hip show advanced osteoarthritis with joint space narrowing, osteophyte formation, and [id number] articulation. PG Care Time/CCT Total # of Minutes Spent Total Time Spent with Patient: Total time spent is greater than 50% in coordination of care (as documented) at patient's floor/unit and/or counseling patient: Coding Level of Care Code None Diagnoses Osteoarthritis of left hip M16.12
[~2021-07-08 07:27] MED LIST changes: +ACETAMINOPHEN 500 MG TAB PO SCH; -BACL10TA PO; +BUPIVACAINE 0.5 % 5 MG/1 ML PF 10ML VIAL ONE; +FAMOTIDINE 20 MG TAB PO SCH; +GABAPENTIN 300 MG CAP PO SCH; +Ketorolac (*for OR use only*) 30 MG, dexAMETHasone 4 MG, KETAMINE HCL (**OR use only) 1... INFIL SCH; -LORA-741 PO; +LR 60ML/HR IV SCH; +MISSING PHYSICIAN SIGNATURE ON ORDER SCH; +TRANEXAMIC ACID 1,000 MG **IV Intra-op IV SCH; +TRANEXAMIC ACID 1,000 MG **IV Pre-op IV SCH; +ceFAZolin 2000MG 2,000 MG/15 ML SYR IV SCH; +dexAMETHasone 4 MG TAB PO SCH
[2021-07-08] MEDS ORDERED: PROPOFOL IV EMULSION 10 MG/ML 20 ML VIAL IV ONE (07:42)
[2021-07-08] MEDS ORDERED: ONDANSETRON INJ 2 MG/ML 2 ML VIAL ONE (07:42)
[2021-07-08] MEDS ORDERED: MIDAZOLAM HCL 1 MG/ML 2ML VIAL ONE (07:42)
[2021-07-08] MEDS ORDERED: fentaNYL citrate 100 MCG/2 ML VIAL ONE (07:42)
[2021-07-08] MEDS ORDERED: LIDOCAINE 2% 2 ML VIAL/AMP(20MG/ML) INFIL ONE (07:42)
[2021-07-08] MEDS ORDERED: ONDANSETRON INJ 2 MG/ML 2 ML VIAL IV PRN (08:05)
[2021-07-08] MEDS ORDERED: ATROPINE SULFATE 0.1 MG/ML 10ML SYR IV PRN (08:05)
[2021-07-08] MEDS ORDERED: ePHEDrine sulfate 50 MG/ML AMP IV PRN (08:05)
--- NOTE | 2021-07-08 08:07 | History & Physical Bridge Note ---
Date of Service July 08, 2021 History & Physical Bridge Note I have examined the patient, reviewed the History & Physical and in the interval since the performance of the History & Physical I have noted the following changes of clinical significance: no changes noted
[2021-07-08] MEDS: LR 500ML BOLUS, THEN 15ML/HR IV SCH ×2 (08:16→08:17)
[2021-07-08 08:27] LABS: Partial Thromboplastin Ratio 0.9; Partial Thromboplastin Time 25.4 Seconds (21.0-31.0); Prothrombin Time 10.7 Seconds (9.0-12.0)
[2021-07-08] MEDS ORDERED: ORTHO JOINT ANESTHETIC ONE (08:33)
[2021-07-08] MEDS ORDERED: VASOPRESSIN 20 UNIT/ML VIAL ONE (09:54)
[2021-07-08] MEDS ORDERED: ePHEDrine sulfate 50 MG/ML AMP ONE (10:15)
[2021-07-08] MEDS ORDERED: PHENYLEPHRINE HCL 10 MG/ML VIAL ONE (10:15)
--- NOTE | 2021-07-08 10:17 | Operative Report ---
PG Post Operative Report Pre & Post Diagnosis Operation Date: 07/08/21 09:30 Pre-Op Diagnosis: Degenerative Joint Disease Left Hip Post-Op Diagnosis: Degenerative Joint Disease Left Hip I identified the patient and participated in the time-out.: Yes Procedure Operation Date: 07/08/21 09:30 Actual Procedures p Left Anterior Total Hip Arthroplasty, Uncemented(Left) - Lloyd Kumar DO Surgeon Lloyd Kumar, Machine Binding Folder Lloyd Venegas PAC Estimated Blood Loss 200 Findings Consistent with Post-Op Diagnosis Specimens Left femoral head Complications none Disposition Disposition: Recovery Room Indications Chantelle is a pleasant 80-year-old female who is been doing with chronic increasing left hip and groin pain. X-rays and clinical examination have been diagnostic for advanced arthritis of the left hip. After failing conservative treatment, she elected proceed with a left anterior total hip arthroplasty. Description of Procedure Implants used I used a ZimmerBiomet total hip arthroplasty system with a size 4 standard offset Avenir Complete stem, a 50 mm G7 cup with a 25mm screw, an E1 polyethylene liner, a 36 mm ceramic head with a 0 neck. Chantelle arrived at the hospital for the above procedure. She was seen in the preoperative holding area and the operative extremity was identified and signed. She was given a spinal anesthetic, a preoperative antibiotic, and TXA. She was then taken back to the operating room and laid on the table in the supine position. She was given basic sedation. The operative leg was secured to a Puristst leg positioner. The hip was then prepped and draped in sterile fashion. A timeout was done and the patient and the operative extremity was properly identified. An anterior approach was used. Dissection was taken down through the fascia and the tensor muscle belly was retracted laterally and the rectus was retracted medially. The circumflex vessels were identified and ligated. The capsule was then incised and tagged for later repair. The femoral neck was then cut and the femoral head was removed. The acetabulum was exposed. Time was spent doing a complete circumferential labral release. Sequential reaming of the acetabulum up to a size 49 reamer was done. Final reamings were done under fluoroscopy to ensure appropriate version. A Biomet 50mm G7 cup was then impacted into place. A single 25 mm screw was placed. The E1 polyethylene liner was then snapped into place. Surrounding soft tissues were then injected with 100 cc of an orthopedic pain control cocktail. The proximal femur was then exposed. Sequential broaching up to a size 4 broach was done. Off that broach a size 36 head with a 0 neck was trialed. The hip was reduced and fluoroscopic images showed anatomic alignment of the implants in acceptable length. The broach was removed. The final size 4 standard offsetAvenir Complete stem was then impacted into place. A ceramic 36mm head with a 0 neck was then impacted onto the stem and the hip was reduced. Final fluoroscopic images showed anatomic alignment of the hip. The capsule was then closed with #1 Vicryl suture. A dilute betadyne lavage was then done for 3 minutes. The joint was then irrigated with normal saline solution. The fascia was closed with #1 PDS suture. Skin was closed with 2-0 Vicryl, familia, and a Silverlon dressing. She was then transferred to a hospital bed and taken to the post anesthesia care unit in stable condition. She tolerated the procedure well. Lloyd Venegas PA-C, was present for the entire procedure. He was critical for patient positioning, prepping, draping, retraction exposure, wound closure and application of sterile dressing. I attest to the content of the Intraoperative Record and any orders documented therein. Any exceptions are noted below.
--- NOTE | 2021-07-08 10:54 | Fluoroscopy Report ---
FL hip LT 1V CLINICAL HISTORY: LEFT ANTERIOR HIP. Status post total hip replacement COMPARISON STUDY: None FLUOROSCOPY TIME: 25 seconds. FLUOROSCOPIC IMAGES: 2 FINDINGS: Initial image demonstrates acetabular component and second image demonstrates the total hip replacement in place. IMPRESSION: Status post left total hip replacement. ACT 112: Negative or not required by law. Electronically signed by: Guzman Reyes M.D. 07/08/2021 10:51 AM
--- NOTE | 2021-07-08 11:06 | XRay Report ---
XR hip 1V LT w pelvis CLINICAL HISTORY: IN PACU - A/P PELVIS and LATERAL HIP . Status post total hip replacement COMPARISON STUDY: 07/28/2014 TECHNIQUE: 2 left hip views FINDINGS: The patient is status post total hip replacement. The prosthetic components are in anatomic alignment with no acute abnormality seen. Skin familia are seen from the recent procedure. IMPRESSION: 1. Status post total hip replacement. ACT 112: Negative or not required by law. Electronically signed by: Guzman Reyes M.D. 07/08/2021 11:04 AM
[2021-07-08] MEDS ORDERED: MAGNESIUM HYDROXIDE SUSP 30 ML UDC PO PRN (11:16)
[2021-07-08] MEDS ORDERED: NALOXONE HCL 0.4 MG/1 ML VIAL/CARP IV PRN (11:16)
[2021-07-08] MEDS ORDERED: METOCLOPRAMIDE HCL INJ 5 MG/ML 2 ML VIAL IV PRN (11:16)
[2021-07-08] MEDS ORDERED: HYDROmorphone INJ 0.5 MG/0.5 ML SYR IV PRN (11:16)
[2021-07-08] MEDS ORDERED: bisacodyL 10 MG SUPP PR PRN (11:16)
[2021-07-08] MEDS: SODIUM CHLORIDE 0.9% 1000ML 1,000 ML IV SCH ×2 (11:51→21:07)
[2021-07-08] MEDS: KETOROLAC TROMETHAMINE 15 MG/ML VIAL IV SCH ×2 (12:04→17:55)
[2021-07-08] MEDS: ACETAMINOPHEN 500 MG TAB PO SCH ×2 (13:44→21:26)
--- NOTE | 2021-07-08 15:35 | Anesthesiology Progress Note ---
Date of Service July 08, 2021 Anesthesia Post Procedure Vital Signs Vital Signs: Temp Pulse Pulse Resp BP BP Pulse Ox 07/08/21 14:10 92 H 16 91/50 L 94 07/08/21 13:01 85 16 94/58 L 94 07/08/21 12:11 77 16 97/62 L 92 07/08/21 11:52 74 16 92/57 L 92 07/08/21 11:33 36.3 C L 82 16 102/63 97 07/08/21 11:05 78 14 113/58 L 96 07/08/21 10:55 36.3 C L 77 14 102/60 96 07/08/21 10:45 73 14 109/61 96 07/08/21 10:38 36.4 C L 78 12 91/57 L 96 07/08/21 07:49 36.6 C 94 H 20 113/62 97 Transfer of Care Handoff Completed per policy Notes Mental Status: alert / awake / arousable Patient Amnestic to Procedure: Yes Nausea / Vomiting: adequately controlled Pain: adequately controlled Airway Patency, RR, SpO2: stable & adequate BP & HR: stable & adequate Hydration State: stable & adequate Neuraxial Anesthesia: was administered and sensory block is resolving Anesthetic Complications: no major complications apparent and Pt Satisfied with anesthetic care
[2021-07-08] MEDS: ceFAZolin 2000MG 2,000 MG/15 ML SYR IV SCH (17:31)
[2021-07-08] MEDS: oxyCODONE HCL IR 5 MG TAB (IMMEDIATE RELEASE) PO PRN (21:26)
[2021-07-08] MEDS: SENNA 8.6 MG TAB PO SCH (21:27)
[2021-07-08] MEDS: DOCUSATE SODIUM 100 MG CAP PO SCH (21:27)
[2021-07-08] MEDS: ASPIRIN 81 MG ECTAB PO SCH (21:28)
[2021-07-09] MEDS: ceFAZolin 2000MG 2,000 MG/15 ML SYR IV SCH (00:08)
[2021-07-09] MEDS: KETOROLAC TROMETHAMINE 15 MG/ML VIAL IV SCH ×6 (00:19→22:22)
[2021-07-09] MEDS: ACETAMINOPHEN 500 MG TAB PO SCH ×3 (06:03→22:21)
--- NOTE | 2021-07-09 07:27 | Orthopedic Progress Note ---
Date of Service July 09, 2021 Assessment & Plan (1) Status post left hip replacement: Overall she is doing fairly well. She has little bit of soreness in her groin but she was able to get some sleep last night. She will be seen by physical therapy today for ambulation and range of motion exercises. I like to keep her in the hospital today for pain control and for ambulation. I will to make sure she is little bit more steady on her feet before she goes home. She is on aspirin for DVT prophylaxis. She will likely be discharged home tomorrow. Erin Lockhart was seen and examined at bedside this morning. Overall she doing fairly well. She is having a little bit of soreness in her groin. She has been up and ambulating to the bathroom. She has no new complaints. Review of Systems All systems reviewed & are unremarkable except as noted in HPI & below. Physical Exam . Results & Data Results & Data Laboratory Results . Diagnostic Findings Postoperative x-rays of the left hip show the prosthesis to be in anatomic alignment without any evidence of fracture, screws, or loosening. PG Care Time/CCT Total # of Minutes Spent Total Time Spent with Patient: Total time spent is greater than 50% in coordination of care (as documented) at patient's floor/unit and/or counseling patient: Coding Level of Care Code 42970 Post Operative Follow-Up Diagnoses Status post left hip replacement Z96.642
[2021-07-09] MEDS ORDERED: dexAMETHasone 4 MG TAB PO SCH (08:00)
[2021-07-09] MEDS: DOCUSATE SODIUM 100 MG CAP PO SCH ×2 (08:47→20:10)
[2021-07-09] MEDS: LORazepam 0.5 MG TAB PO SCH (08:47)
[2021-07-09] MEDS: ASPIRIN 81 MG ECTAB PO SCH ×2 (08:47→20:11)
[2021-07-09] MEDS: VENLAFAXINE HCL XR 150 MG CAPXR PO SCH (08:48)
[2021-07-09] MEDS: MULTIVITAMIN TAB PO SCH (08:48)
[2021-07-09] MEDS: SENNA 8.6 MG TAB PO SCH (20:10)
[2021-07-10] MEDS: KETOROLAC TROMETHAMINE 15 MG/ML VIAL IV SCH (05:27)
[2021-07-10] MEDS: ACETAMINOPHEN 500 MG TAB PO SCH ×3 (05:28→20:47)
[2021-07-10] MEDS: DOCUSATE SODIUM 100 MG CAP PO SCH (07:42)
[2021-07-10] MEDS: MULTIVITAMIN TAB PO SCH (07:42)
[2021-07-10] MEDS: VENLAFAXINE HCL XR 150 MG CAPXR PO SCH (07:42)
[2021-07-10] MEDS: ASPIRIN 81 MG ECTAB PO SCH ×2 (07:42→20:47)
[2021-07-10] MEDS: LORazepam 0.5 MG TAB PO SCH (07:43)
--- NOTE | 2021-07-10 07:46 | Orthopedic Progress Note ---
Date of Service July 10, 2021 Assessment & Plan (1) Status post left hip replacement: Overall she is doing fairly well. She is having much pain in the left hip. She will be seen by physical therapy for ambulation and range of motion exercises. She is on aspirin for DVT prophylaxis. She can be discharged home later today. She will follow-up with orthopedics in 2 weeks. Subjective Chantelle was seen and examined at bedside this morning. Overall she is doing fairly well. She is not having much pain in her left hip. She worked well yesterday with physical therapy. She is ready to go home today and has no complaints. Review of Systems All systems reviewed & are unremarkable except as noted in HPI & below. Physical Exam On physical examination of the left hip, the dressing is clean and dry. Her leg lengths are equal. She is active dorsiflexion plantarflexion of her left ankle. Sensations intact throughout. Results & Data Results & Data Laboratory Results . Diagnostic Findings . PG Care Time/CCT Total # of Minutes Spent Total Time Spent with Patient: Total time spent is greater than 50% in coordination of care (as documented) at patient's floor/unit and/or counseling patient: Coding Level of Care Code 51441 Post Operative Follow-Up Diagnoses Status post left hip replacement Z96.642
[2021-07-10] MEDS: ONDANSETRON INJ 2 MG/ML 2 ML VIAL IV PRN (07:49)
[2021-07-10 08:33] LABS: Hematocrit (blood only) 33.6 % (37-47); Hemoglobin 11.3 g/dL (12.0-16.0); Mean Corpuscular Hemoglobin 34.9 pg (25-34); Mean Corpuscular Volume 103.7 fL (80-100); Mean Platelet Volume 11.1 fL (7.4-10.4); Platelet Count 207 K/uL (130-400); RDW Coefficient of Variation 13.6 % (11.5-14.5); RDW Standard Deviation 51.6 fL (36.4-46.3); Red Blood Count 3.24 M/uL (4.2-5.4); White Blood Count 12.74 K/uL (4.8-10.8)
[2021-07-10 08:34] LABS: Mean Corpuscular Hgb Conc 33.6 g/dL (32-36)
[2021-07-10 08:59] LABS: Albumin Globulin Ratio 1.4 (0.9-2); Albumin Level 3.6 gm/dl (3.4-5.0); BUN Creatinine Ratio 35.1 (10-20); Bilirubin,Total 0.8 mg/dl (0.2-1.0); Calcium 9.3 mg/dl (8.5-10.1); Creatinine Clr Calc Pharmacy 40.9 ml/min; Est GFR (African American) 63.5 ml/min; Est GFR (Non-African American) 54.8 ml/min; Globulin 2.5 gm/dl (2.5-4.0); Magnesium 2.1 mg/dl (1.7-2.4); Potassium 4.1 mmol/L (3.5-5.1); Total Protein 6.1 gm/dl (6.0-8.3)
--- NOTE | 2021-07-10 10:42 | Magnetic Resonance Report ---
MRI OF THE BRAIN WITHOUT CONTRAST CLINICAL HISTORY: Concern for CVA (slurred speech, facial droop). History of meningioma resection. COMPARISON STUDY: MRI of the brain November 21, 2018. Head CT June 23, 2021. TECHNIQUE: Utilizing a 1.5 Gabby magnet and dedicated coil, multiplanar, multiecho imaging of the bra in was performed without IV contrast. FINDINGS: There are no foci of restricted diffusion to suggest acute infarct. No acute intracranial h emorrhage, midline shift or mass effect is present. Ventricular system is unremarkable. Basal cistern s are patent. There are no extra axial collections. Flow-voids for the major intracranial vessels are present. Appearance of the right frontal craniotomy is unchanged with stable encephalomalacia within the right frontal lobe. Postoperative appearance is unchanged since MRI of November 21, 2018. White ma tter T2 hyperintense foci are unchanged. No recurrent intracranial masses are identified on this unen hanced exam. The appearance of the brain is unchanged. IMPRESSION: 1. No acute intracranial findings. 2. Stable postoperative findings following right frontal craniotomy. No evidence for recurrent tumor on unenhanced exam. ACT 112: Negative or not required by law. Electronically signed by: Williams Roca M.D. 07/10/2021 10:39 AM
[2021-07-10] MEDS ORDERED: LACTATED RINGER'S 500 ML IV ONE ×2 (10:49→21:24)
[2021-07-10] MEDS ORDERED: SODIUM CHLORIDE 0.9% 1000ML 1,000 ML IV ONE (17:00)
[2021-07-10 17:18] LABS: Hematocrit (blood only) 28.9 % (37-47); Hemoglobin 9.7 g/dL (12.0-16.0); Mean Corpuscular Hemoglobin 34.9 pg (25-34); Platelet Count 197 K/uL (130-400); RDW Coefficient of Variation 13.6 % (11.5-14.5); RDW Standard Deviation 50.8 fL (36.4-46.3); Red Blood Count 2.78 M/uL (4.2-5.4); White Blood Count 7.97 K/uL (4.8-10.8)
[2021-07-10 17:20] LABS: Base Excess VBG -2.2 mEq/L; HCO3 VBG 22 mmol/L; PCO2 VBG 37 mmHg (38-50); PO2 VBG 34 mmHg
[2021-07-10 17:21] LABS: Oxygen Saturation VBG < 60.0 %
[2021-07-10 17:23] LABS: Mean Corpuscular Hgb Conc 33.6 g/dL (32-36)
--- NOTE | 2021-07-10 17:31 | XRay Report ---
XR chest 1V portable CLINICAL HISTORY: Hypotension. COMPARISON STUDY: Chest radiograph December 21, 2020. FINDINGS: Lung volumes are diminished. There is no pneumothorax or pleural effusion. Mild enlargement of the cardiac silhouette is accentuated on this hypoventilatory study. This may also account for pr ominence of the vasculature. Minimal bibasilar opacities are present. IMPRESSION: 1. Interval enlargement of the cardiac silhouette and prominence of the vasculature which may be due to a hypoventilatory study. Radiographic follow-up is recommended. 2. Bibasilar opacities which favor atelectasis. ACT 112: Negative or not required by law. Electronically signed by: Williams Roca M.D. 07/10/2021 5:29 PM
[2021-07-10 17:47] LABS: Alanine Aminotransferase 37 U/L (7-52); Albumin Globulin Ratio 1.5 (0.9-2); Albumin Level 2.9 gm/dl (3.4-5.0); Alkaline Phosphatase 99 U/L (34-104); Anion Gap 9 (3-11); Aspartate Aminotransferase 76 U/L (13-39); BUN Creatinine Ratio 40.8 (10-20); Bilirubin,Total 0.7 mg/dl (0.2-1.0); Blood Urea Nitrogen 40 mg/dl (6-23); Calcium 8.2 mg/dl (8.5-10.1); Carbon Dioxide 22 mmol/L (21-32); Chloride 108 mmol/L (98-107); Creatinine Clr Calc Pharmacy 40.5 ml/min; Est GFR (African American) 62.7 ml/min; Est GFR (Non-African American) 54.1 ml/min; Glucose 105 mg/dl (70-99(Fasting)); Magnesium 1.8 mg/dl (1.7-2.4); Potassium 4.2 mmol/L (3.5-5.1); Sodium 139 mmol/L (136-145); Total Protein 4.9 gm/dl (6.0-8.3); Troponin I < 0.03 ng/ml (0-0.04)
[2021-07-10] MEDS ORDERED: LOPERAMIDE HCL 2 MG CAP PO STA (19:08)
--- NOTE | 2021-07-10 19:10 | Hospitalist Consultation ---
Date of Consultation July 10, 2021 Assessment & Plan (1) Status post left hip replacement: S/p TAJ with Dr. Kumar on 07/07/2021. Doing well from that perspective. No major concerns per Dr. Kumar, and site looks stable without bruising or hematoma noted. - Hgb down to 9.[address] Kumar, this is expected from surgery and represents expected acute blood loss anemia. He felt this was an expected kelsey and did not warrant imaging. - Repeat hgb overnight, then in the AM. - Can consider IV iron to help replenish iron stores if hgb stable. (2) Hypotension: In the afternoon, informed by RN that patient's BP was 65/40. Immediately went to see the patient. She reported some fatigue and general dizziness, but then reported this was fairly long-standing. Fully alert and oriented. Labs were generally benign with normal VBG and lactate. Had been having copious diarrhea throughout the day per the RN. - Given 1L NSS bolus with improvement in BP to 90/50. Mental status remained stable. C. diff was negative. - Hold all stool softener medications. - Transferred to med/tele for closer monitoring overnight. Discussed with Dr. Kumar. (3) Syncope: Likely vasovagal from micturition, dehydration, and hypovolemia. Had classic prodrome symptoms of flushing and lightheadedness prior to syncope and no confusion afterward. - MRI brain done after episode with no indication of CVA. (4) Diarrhea: Large volume and frequency of stools on 07/10. C. diff negative. - Hold standing stool softeners. - IV fluids as above - Imodium PRN - Ordered full stool PCR set. (5) Rose's palsy: Long-standing history. Possibly mildly worsened from syncopal episode, stress from anesthesia, and hypovolemia. - Monitor (6) Hypertension: In notes as history of. Not presently on any medications for it. - As above (7) Anxiety: Recent admission for abrupt withdrawal of her medications. Now undertaking slow taper with PCP. - Continue home venlafaxine and Ativan (8) DVT prophylaxis: ASA 81 mg PO BID per orthopedics History of Present Illness Reason for Consultation: Syncopal episode and low blood pressure Attending Physician: Lloyd Kumar, DO History of Present Illness 80yo F w/ hx of depression, HTN, and osteoarthritis who had a left TAJ with Dr. Kumar on 07/07/2021. Plan had been for discharge today, but she had a syncopal episode in the bathroom. Per the patient and RN, she ambulated well to the bathroom. The RN positioned her on the commode, but then the RN turned away to use the computer while she went to the bathroom. The RN called out to her, but she did not respond, and when the RN returned, she was slumped forward (though no fall). The RN and an aide got her back into bed. On check, her BP was 70/40. Raquel Hemphill was called. The orthopedist was called who consulted medicine. On my arrival, she was alert and chatting with the RN. Her BP had spontaneously come up to 90/50. She had some dysarthria and possible worsened left facial droop, but was otherwise back to normal. Allergies Allergy/AdvReac Type Severity Reaction Status Date / Time hydrocodone Allergy Intermediate Itching Verified 07/08/21 08:02 codeine Allergy Mild Rash Verified 07/08/21 08:02 baclofen Allergy Unknown CAN'T Verified 07/08/21 08:02 REMEMBER fentanyl [From Duragesic] Allergy Unknown CAN'T Verified 07/08/21 08:02 REMEMBER gabapentin Allergy Unknown CAN'T Verified 07/08/21 08:02 REMEMBER hydromorphone AdvReac Intermediate N/V Verified 07/08/21 08:02 oxycodone AdvReac Intermediate Nausea, Verified 07/08/21 08:02 vertigo phenytoin AdvReac Intermediate Vertigo Verified 07/08/21 08:02 Home Medications Medication Instructions Recorded Confirmed Type multivitamin (Daily Multi-Vitamin) 1 tab PO QAM 12/17/18 07/06/21 History venlafaxine 150 mg 150 mg PO QAM cap 12/17/18 07/08/21 History capsule,extended release 24 hr coQ10 (ubiquinol) 100 mg capsule 100 mg PO QAM 12/16/20 07/06/21 History omega-3 fatty acids 1,000 mg 1,000 mg PO QAM 06/22/21 07/06/21 History capsule lorazepam 0.5 mg tablet 0.25 - 0.5 mg PO QAM #30 tab 07/01/21 07/08/21 History aspirin 81 mg tablet,delayed 81 mg PO BID #84 tab 07/10/21 Rx release sennosides 17.2 mg tablet (Senokot 17.2 mg PO HS PRN #14 tab 07/10/21 Rx Extra Strength) tramadol 50 mg tablet 50 mg PO Q6H PRN #30 tab 07/10/21 Rx Patient History Medical History Anxiety 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 Depression Dizziness AND WEAKNESS-ATTRIBUTED TO ABRUPT STOP OF MEDICATIONS-RESOLVED SINCE HAS BEEN TAKING HER MEDS PRESCRIBED Fibromyalgia History of diverticulitis History of seizures as a child At age 11 History of squamous cell carcinoma Meningioma Removed (2005) Osteoarthritis Paroxysmal atrial tachycardia Prolonged QT interval SCC (squamous cell carcinoma) Surgical History History of colonoscopy History of hip replacement Right History of squamous cell carcinoma excision S/P brain surgery Removal of meningioma (2005) S/P cholecystectomy S/P knee surgery Right S/P tonsillectomy Family History Father Diverticulitis Colorectal cancer Mother Herpes zoster infection Sister Sinus symptom Denies family history of Ovarian cancer Prostate cancer Myocardial infarction Breast cancer Lung cancer Stroke Social History Smoking Status: Former smoker Second Hand Exposure: No; Do You Dip or Chew Tobacco: No; Hx Alcohol Use: No Hx Substance Use: No Preferred Language: Cape Verdean Communication Ability: Effective Visual Impairment: No Limitations Hearing Ability: Normal Innersole Maker Required: No Beliefs That Will Affect Care: None marital status: Current Living Situation: Spouse current occupational status: retired Other Information That Helps Us Care for You: No Feels Safe at Home: Yes Safety Concerns: Feels Safe At This Time Dental Care, Regularly: Yes Physical Activity Frequency: Daily Seatbelt Use: always Sunscreen Use: Yes Assistive Devices: Glasses and Walker Review of Systems Review of Systems: All systems reviewed & are unremarkable except as noted in HPI & below Physical Exam Constitutional: WD/WN, vitals as above Eyes: EOM intact bilaterally; no conjunctival abnormality ENMT: external ear and nose normal, oropharynx normal Neck: trachea midline, no thyromegaly normal visual inspection Respiratory: normal respiratory effort, lungs clear to auscultation no respiratory distress Cardiovascular: RRR, no murmur, no edema Gastrointestinal (Abdomen): Inspection/Auscultation: abdomen normal to inspection; abdomen not distended Musculoskeletal: no cyanosis or clubbing, extremities motor strength 5/5 (Did not test LLE due to prior surgery, but otherwise good strength) Hip: + hip abnormal to inpsection (Left hip with bandaging. Mild bruising. No hematoma. No tenderness noted.) and + surgical incision Skin: no rashes, warm and dry Neurologic: moves all extremities and awake Speech / Cognition: + abnormal speech; normal cognition Some dysarthria Psychiatric: Orientation: alert, oriented to person and cooperative Results & Data Results & Data ([facility]) Vital Signs (Past 12 Hours) Vital Signs Temp Pulse Resp BP BP Pulse Ox 07/10/21 17:48 105 H 18 89/50 L 92 07/10/21 16:16 36.8 C 90 16 66/38 L 74/45 L 91 07/10/21 08:15 72 18 116/68 99 07/10/21 07:50 68 18 160/83 H 98 07/10/21 07:13 36.6 C 95 H 16 92/54 L 72/41 L 96 PG Care Time/CCT Total # of Minutes Spent Total Time Spent with Patient: Total time spent is greater than 50% in coordination of care (as documented) at patient's floor/unit and/or counseling patient: Coding Level of Care Code 33744 Inpt Consult Level 5 Diagnoses Status post left hip replacement Z96.642 Syncope R55 Hypotension I95.9 Rose's palsy G51.0 Hypertension I10 Anxiety F41.9 DVT prophylaxis Z29.9 Diarrhea R19.7
[2021-07-10] MEDS: oxyCODONE HCL IR 5 MG TAB (IMMEDIATE RELEASE) PO PRN (20:51)
[2021-07-10 21:40] LABS: Adenovirus F 40/41 PCR Not Detected (NotDetected); Astrovirus PCR Not Detected (NotDetected); Campylobacter PCR Not Detected (NotDetected); Clostridium diff Toxin A/B PCR Not Detected (NotDetected); Cryptosporidium PCR Not Detected (NotDetected); Cyclospora cayetanensis PCR Not Detected (NotDetected); Entamoeba histolytica PCR Not Detected (NotDetected); Enteroaggregative E.coli(EAEC) Not Detected (NotDetected); Enteropathogenic E.coli (EPEC) Not Detected (NotDetected); Enterotoxigenic E.coli (ETEC) Not Detected (NotDetected); Giardia lamblia PCR Not Detected (NotDetected); Norovirus GI/GII PCR Not Detected (NotDetected); Plesiomonas shigelloides PCR Not Detected (NotDetected); Rotavirus A PCR Not Detected (NotDetected); Salmonella PCR Not Detected (NotDetected); Sapovirus PCR Not Detected (NotDetected); Shiga-like Toxin E.coli (STEC) Not Detected (NotDetected); Shigella/Enteroinvasive E.coli Not Detected (NotDetected); Vibrio cholerae PCR Not Detected (NotDetected); Vibrio species PCR Not Detected (NotDetected); Yersinia enterocolitica PCR Not Detected (NotDetected)
[2021-07-10 23:50] LABS: Hematocrit (blood only) 27.4 % (37-47); Hemoglobin 9.4 g/dL (12.0-16.0); Mean Corpuscular Hemoglobin 34.9 pg (25-34); Mean Corpuscular Hgb Conc 34.3 g/dL (32-36); Mean Corpuscular Volume 101.9 fL (80-100); Mean Platelet Volume 10.8 fL (7.4-10.4); Platelet Count 183 K/uL (130-400); RDW Coefficient of Variation 13.7 % (11.5-14.5); RDW Standard Deviation 51.1 fL (36.4-46.3); Red Blood Count 2.69 M/uL (4.2-5.4)
[2021-07-11] MEDS: LOPERAMIDE HCL 2 MG CAP PO PRN (01:36)
[2021-07-11] MEDS ORDERED: LACTATED RINGER'S 1,000 ML IV ONE (02:08)
[2021-07-11] MEDS ORDERED: SODIUM CHLORIDE 0.9% 250 ML IV PRN (02:48)
[2021-07-11 03:35] LABS: Hematocrit (blood only) 28.4 % (37-47); Hemoglobin 9.8 g/dL (12.0-16.0); Mean Corpuscular Hemoglobin 35.3 pg (25-34); Mean Corpuscular Volume 102.2 fL (80-100); Mean Platelet Volume 11.1 fL (7.4-10.4); Platelet Count 214 K/uL (130-400); RDW Coefficient of Variation 13.9 % (11.5-14.5); RDW Standard Deviation 51.9 fL (36.4-46.3); Red Blood Count 2.78 M/uL (4.2-5.4); White Blood Count 9.35 K/uL (4.8-10.8)
[2021-07-11 03:38] LABS: Mean Corpuscular Hgb Conc 34.5 g/dL (32-36)
[2021-07-11] MEDS ORDERED: LACTATED RINGER'S 500 ML IV ONE (03:49)
[2021-07-11] MEDS ORDERED: ALBUMIN 25% 100 mL 25 GM/100 ML VIAL IV ONE (03:51)
[2021-07-11 03:54] LABS: Troponin I < 0.03 ng/ml (0-0.04)
[2021-07-11 04:03] LABS: ALC (manual) 0.58 K/uL (1.2-3.4); ANC (manual) 7.86 K/uL (1.4-6.5); Basophils # (manual) 0.08 K/uL (0-0.2); Basophils % (manual) 0.9 %; Dohle Bodies 1+; Lymphocytes # (manual) 0.58 K/uL (1.2-3.4); Lymphocytes % (manual) 6.2 %; Monocytes # (manual) 0.82 K/uL (0.11-0.59); Monocytes % (manual) 8.8 %; Neutrophils # (manual) 7.86 K/uL (1.4-6.5); Neutrophils % (manual) 84.1 %
[2021-07-11 04:05] LABS: Alanine Aminotransferase 61 U/L (7-52); Albumin Globulin Ratio 1.4 (0.9-2); Albumin Level 3.1 gm/dl (3.4-5.0); Alkaline Phosphatase 126 U/L (34-104); Anion Gap 12 (3-11); Aspartate Aminotransferase 107 U/L (13-39); BUN Creatinine Ratio 38.8 (10-20); Bilirubin,Total 0.9 mg/dl (0.2-1.0); Blood Urea Nitrogen 40 mg/dl (6-23); Calcium 8.4 mg/dl (8.5-10.1); Carbon Dioxide 20 mmol/L (21-32); Chloride 107 mmol/L (98-107); Creatinine Clr Calc Pharmacy 38.5 ml/min; Est GFR (Non-African American) 50.9 ml/min; Globulin 2.2 gm/dl (2.5-4.0); Glucose 107 mg/dl (70-99(Fasting)); Magnesium 1.6 mg/dl (1.7-2.4); Phosphorus 3.5 mg/dl (2.5-4.9); Sodium 139 mmol/L (136-145); Total Protein 5.3 gm/dl (6.0-8.3)
[2021-07-11] MEDS ORDERED: STAT IV Infusion **Titration per Protocol STA (04:23)
--- NOTE | 2021-07-11 04:26 | Critical Care Consultation ---
Date of Consultation July 11, 2021 Assessment & Plan (1) Admitted to intensive care unit: Reason Critically Ill: 80-year-old female who is status post LEFT total hip arthroplasty who has had a complicated postoperative course consistent with development of voluminous diarrhea, hypovolemia, near syncope, and new onset a fib. Now hypotensive with a fib requiring ICU level care. 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 CARDIAC/VASCULAR - * New onset A fib w/ RVR: * Unfortunately, patient was with soft BPs prior to this development. She is now w/ SBPs in the 70s. * Possibly in large part to profound volume losses 2/2 diarrhea. * Will continue to bolus IVF. * Maximize electrolytes (K, Mg). * Unfortunately, the patient's associated hypotension complicates available drugs for cardioversion/rate control. Ideally, would like to utilize BB or CCB, but patient's BPs have been far too labile to support either of these drug classes. Additionally, patient w/ h/o prolonged QT. Current ECG w/o this findings, but I am still concerned treating w/ Amiodarone given this finding seen on multiple recent ECGs. Again, will attempt to maximize volume status and electrolytes first. * Francis gtt if pressors needed. Recent Echo w/o or depressed EF. Should be able to tolerate well. * Will treat with Digoxin once medically maximized. * Thankfully, patient has been relatively stable despite hemodynamic issues. Would utilize electrocardioversion only if unresponsive to above mentioned therapies. * Would hold on anticoagulation in the recent TAJ patient w/ <2 hrs of onset of A fib. * Additionally, patient is with new O2 requirement s/p TAJ. While it may less likely on differential, patient has only been anticoagulated on ASA alone which may make thromboembolic event slightly more likely. She also had a syncopal episode yesterday while in the bathroom. Patient is also having quite a bit of TTP throughout the abdomen. She does a have a slight bump in her Lactate despite a normal WBC. Given both of these findings and risk for thromboembolic process, will order CT PE study as well as CT abd/pelvis for further evaluation. While I would rather not load this patient w/ IV contrast, her laboratory findings and symptoms certainly seem to warrant further exploration. * EKG: A fib w/ RVR @ 133 bpm. T wave inversions in septal-lateral leads unchanged from priors. No ST Elevations noted. QTc 381 ms. * Monitor on telemetry. RESPIRATORY - * Hypoxia: * Postoperatively requiring 2L NC * No respiratory distress at this time. * Will assess for PE as described above. In light of O2 requirement, new onset A fib, syncopal episode today, and elevated lactate, I do feel that CTA is warranted for further assessment. GI/NUTRITION - * Diarrhea: * Patient with significant volume losses from diarrhea. * C. diff/stool cultures otherwise negative. * She is now w/ diffuse TTP throughout the abdomen. * Will image abdomen for further assessment. RENAL/LYTES - * No significant electrolyte derangements. * Suspect baseline CKD * IVF: LR@150mL/hr - * No concerns at this time. * Strict I&Os. ENDO - * No h/o DM or Thyroid Dz * BSGs per unit protocol. ISS --> gtt per unit policy. HEME - * Anemia: * Anticipated blood loss s/p TAJ. * Likely dilutional component as well w/ recent IVF boluses. ID - * Will evaluate further for possible infectious sources. No fever, white count, ect at this point to suspect infection. LINES/IV ACCESS - * PIVs x1 * 20g Endurance catheter to the RUE DVT PROPHYLAXIS - * ASA * SCDs I have personally spent 62 minutes of critical care time in the direct management of this patient. This is a life/limb threatening event. This includes time spent evaluating patient, direct bedside care, chart review, placing orders, interpretation of diagnostic studies, discussion with consultants, patient, and family members, as well as other required patient management activities. This time is exclusive of all separately billable procedures, and teaching time and separate from and in addition to any other critical care service time. Thank you for allowing us to participate in the care of this patient. Please refer to my attending physician's documentation for any further recommendations. (2) Atrial fibrillation with rapid ventricular response: (3) Prolonged QT interval: (4) Diarrhea: (5) Hypotension: (6) Syncope: (7) Status post left hip replacement: History of Present Illness Attending Physician: Lloyd Kumar, History of Present Illness She is an 80-year-old female with a significant past medical history of hypertension, osteoarthritis, depression, Rose's palsy, hyperlipidemia, and prolonged QT interval. Patient underwent elective TAJ to the LEFT-sided hip on 07/07. Patient was doing well and ambulating with minimal difficulty, however today, prior to discharge, the patient had a hypotensive episode while on the toilet. Patient has had multiple diarrheal bowel movements for the last few days. Patient recovered with IV fluid boluses. She was sent to the telemetry floor for ongoing management. Unfortunately, throughout the night, her blood pressures remain soft and eventually, the patient flipped into A. fib which caused a precipitous drop in her blood pressure. Patient was moved to the ICU for ongoing management. Upon evaluation in the ICU, the patient is awake, alert, and oriented. She complains of a mild RIGHT-sided frontal headache. She reports that she has a longstanding history of headaches and this feels similar. She reports this is not the worst headache of her life. She reports no other associated symptoms at this time. Despite her tachycardia, the patient denies complaints of blurry vision, chest pain, palpitations, pleuritic pain, nausea, or vomiting. She does complain of some abdominal discomfort which has been ongoing for the last few days as well. Allergies Allergy/AdvReac Type Severity Reaction Status Date / Time hydrocodone Allergy Intermediate Itching Verified 07/08/21 08:02 codeine Allergy Mild Rash Verified 07/08/21 08:02 baclofen Allergy Unknown CAN'T Verified 07/08/21 08:02 REMEMBER fentanyl [From Duragesic] Allergy Unknown CAN'T Verified 07/08/21 08:02 REMEMBER gabapentin Allergy Unknown CAN'T Verified 07/08/21 08:02 REMEMBER hydromorphone AdvReac Intermediate N/V Verified 07/08/21 08:02 oxycodone AdvReac Intermediate Nausea, Verified 07/08/21 08:02 vertigo phenytoin AdvReac Intermediate Vertigo Verified 07/08/21 08:02 Home Medications Medication Instructions Recorded Confirmed Type multivitamin (Daily Multi-Vitamin) 1 tab PO QAM 12/17/18 07/06/21 History venlafaxine 150 mg 150 mg PO QAM cap 12/17/18 07/08/21 History capsule,extended release 24 hr coQ10 (ubiquinol) 100 mg capsule 100 mg PO QAM 12/16/20 07/06/21 History omega-3 fatty acids 1,000 mg 1,000 mg PO QAM 06/22/21 07/06/21 History capsule lorazepam 0.5 mg tablet 0.25 - 0.5 mg PO QAM #30 tab 07/01/21 07/08/21 History aspirin 81 mg tablet,delayed 81 mg PO BID #84 tab 07/10/21 Rx release sennosides 17.2 mg tablet (Senokot 17.2 mg PO HS PRN #14 tab 07/10/21 Rx Extra Strength) tramadol 50 mg tablet 50 mg PO Q6H PRN #30 tab 07/10/21 Rx Patient History Medical History Anxiety Rose's palsy HX LEFT SIDE 2008 -DROOPS SLIGHTLY Depression Dizziness AND WEAKNESS-ATTRIBUTED TO ABRUPT STOP OF MEDICATIONS-RESOLVED SINCE HAS BEEN TAKING HER MEDS PRESCRIBED Fibromyalgia History of diverticulitis History of seizures as a child At age 11 History of squamous cell carcinoma Meningioma Removed (2005) Osteoarthritis Paroxysmal atrial tachycardia Prolonged QT interval SCC (squamous cell carcinoma) Surgical History History of colonoscopy History of hip replacement Right History of squamous cell carcinoma excision S/P brain surgery Removal of meningioma (2005) S/P cholecystectomy S/P knee surgery Right S/P tonsillectomy Family History Father Diverticulitis Colorectal cancer Mother Herpes zoster infection Sister Sinus symptom Denies family history of Ovarian cancer Prostate cancer Myocardial infarction Breast cancer Lung cancer Stroke Social History Smoking Status: Former smoker Second Hand Exposure: No; Do You Dip or Chew Tobacco: No; Hx Alcohol Use: No Hx Substance Use: No Preferred Language: Slovenian Communication Ability: Effective Visual Impairment: No Limitations Hearing Ability: Normal 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 All else were negative. Physical Exam Physical Exam: VITAL SIGNS - Vital signs and nursing notes were reviewed. GENERAL - 80-year-old female appearing her stated age who is in no acute distress. Communicates well with provider and answers questions appropriately. SKIN - Without rashes. Small area of induration noted to the LEFT forearm consistent with IV site infiltration. HEAD - NC/AT. EYES - PERRL with EOMI bilaterally. Sclera anicteric. Palpebral conjunctiva pink and moist with no injection noted. EARS - No deformities of external structures noted on gross examination bilaterally. NOSE - Midline and without cyanosis. No epistaxis or purulent drainage noted. MOUTH/OROPHARYNX - Without perioral cyanosis. Buccal mucosa pink and dry. NECK - Neck with FROM. Supple to palpation. No nuchal rigidity. LUNGS - Chest wall symmetric without accessory muscle use, intercostals retractions, or central cyanosis. Normal vesicular breath sounds CTA B/L. No wheezes, rales, or rhonchi appreciated. CARDIAC - Irregularly irregular. No murmur, rubs, or gallops appreciated. ABDOMEN - Abdominal contour flat and mildly distended without pulsations or visible masses. BS normoactive all four quadrants. Moderate diffuse tenderness to palpation. No palpable masses, hepatosplenomegaly, or ascites noted. EXTREMITIES - No clubbing or peripheral cyanosis. Large dressing to the LEFT sided hip clean, dry, and intact. No pretibial edema present. +3/5 radial and dorsalis pedis pulses palpated throughout. +5/5 strength noted in UE/LE bilaterally. NEUROLOGIC - LEFT sided facial paralysis c/w h/o Rose's. No other focal neurological deficits appreciated. PSYCH - A&Ox3 and cooperates fully with examiner. Pt is very pleasant and interacts well with examiner. Results & Data Results & Data ([facility]) Vital Signs (Past 12 Hours) Vital Signs Temp Pulse Pulse Resp BP BP BP 07/11/21 03:45 36.8 C 129 H 25 H 07/11/21 03:43 80/52 L 07/11/21 03:30 136 H 07/11/21 03:00 124 H 80/42 L 07/11/21 02:25 122 H 87/55 L 07/11/21 02:05 36.7 C 117 H 18 75/46 L 07/10/21 22:50 36.8 C 103 H 18 95/44 L 07/10/21 20:40 36.9 C 103 H 90/56 L 07/10/21 19:23 104 H 20 82/54 L 07/10/21 17:48 105 H 18 89/50 L Pulse Ox 07/11/21 03:45 95 07/11/21 03:43 94 07/11/21 03:30 07/11/21 03:00 07/11/21 02:25 07/11/21 02:05 92 07/10/21 22:50 93 07/10/21 20:40 93 07/10/21 19:23 94 07/10/21 17:48 92 Coding Level of Care Code Critical Care 1st 30-74 mins Diagnoses Admitted to intensive care unit Z78.9 Atrial fibrillation with rapid ventricular response I48.91 Prolonged QT interval R94.31 Diarrhea R19.7 Hypotension I95.9 Syncope R55 Status post left hip replacement Z96.642 Time Spent (min) 62
--- NOTE | 2021-07-11 04:26 | Procedure Note ---
Procedure Note Date of Service July 11, 2021 Note Procedure: Glue Reel Operator Indwelling Peripherally Inserted IV Catheter Placement Attending: Dr. Painting APC: Federico Casas PA-C Indication: Need for IV Access, Poor Vascular Access Anesthesia: None Verbal consent was obtained from patient prior to performing the procedure. A time-out was completed verifying correct patient, procedure, site, positioning, and implant(s) or special equipment if applicable. Utilizing bedside ultrasound, vascularity of the RIGHT upper extremity was assessed. Vessel size was noted for appropriate catheter selection and skin was marked with gentle pressure. Patients RIGHT upper extremity was prepped and draped in the usual sterile fashion utilizing chlorhexidine. Ultrasound guidance was used to aid needle placement. A 20g Endurance Catheter was introduced into the RIGHT brachial vein under direct ultrasound guidance. Guide wire was easily deployed without resistance. Catheter was threaded over the guide wire without resistance and the entire apparatus was removed intact. Good venous blood return was noted in the catheter. The IV catheter was easily flushed with sterile saline flush. Sterile clave was attached to the end of the catheter and good blood return was again noted. Tourniquet was released. StatLock device and sterile dressing were applied. The patient tolerated the procedure well. Blood Loss: Minimal Complications: None Procedural Ultrasound Guidance: Procedure Date: 07/11/2021 Indication: Poor Vascular Access Attending: Dr. Painting APC: Federico Casas PA-C Artery/Veins Identified: YES Access confirmed in Vein with ultrasound: YES Complications: NONE Patient tolerated procedure: WELL Coding CPT Codes Tubes, Drains, and Vasc Access - Tubes, Drains, and Vasc Access: [id number] Venipuncture, Age 2/>Req phys skill, (sep proc), Dx/Tx (not rtn) ([id number]) [facility] [place] Procedure Codes (Charges) Tubes, Drains, and Vasc Access Procedure 1: Tubes, Drains, and Vasc Access: [id number] Venipuncture, Age 2/>Req phys skill, (sep proc), Dx/Tx (not rtn)
[2021-07-11] MEDS ORDERED: PHENYLEPHRINE HCL 20 MG in DEXTROSE 5% 500 ML IV SCH (04:30)
[2021-07-11] MEDS: MAGNESIUM SULFATE / D5W 1 GM/100 ML BAG IV SCH ×2 (04:31→06:36)
[2021-07-11] MEDS: LACTATED RINGER'S 1,000 ML IV SCH ×2 (04:52→08:19)
[2021-07-11] MEDS ORDERED: DIGOXIN 250 MCG in SYRINGE 9 ML IV ONE (05:30)
[2021-07-11] MEDS: ACETAMINOPHEN 500 MG TAB PO SCH ×3 (06:30→19:34)
[2021-07-11] MEDS ORDERED: OPTIRAY 320 125ml IV ONE (07:18)
--- NOTE | 2021-07-11 07:34 | CT Scan Report ---
CT abd pelvis IV con only CLINICAL HISTORY: abd pain/distenstion, diarrhea, elevated lactate TECHNIQUE: Helical axial images of the abdomen and pelvis were obtained and displayed. Automated dose lowering techniques and/or adjustment according to patient size were utilized for this exam. This e xam was performed with intravenous contrast. COMPARISON: Comparison is made to CT abdomen pelvis 06/22/2021 FINDINGS: Lower chest: For findings above the diaphragm, please see CT chest performed same day. Liver: A hepatic cyst measures 14 mm in diameter. Gallbladder and biliary tree: Patient is status post cholecystectomy. Physiologic prominence of the b iliary ducts is noted. Pancreas: Fatty replacement of the pancreas is seen. Spleen: Splenic hypodensity is unchanged from prior exam. Adrenals: Unremarkable. Kidneys and ureters: Previously noted renal cysts are stable. Bladder: Unremarkable. Reproductive organs: Unremarkable. Bowel: Extensive diverticulosis is seen. The sigmoid colon: Demonstrates wall thickening and vascular prominence. Focal fat stranding and wall thickening is also seen at the splenic flexure and descendi ng colon. The appendix is normal. Lymph nodes Retroperitoneal: Unremarkable. Mesenteric: Unremarkable. Pelvic: Unremarkable. Peritoneum: Normal. Vessels: Atherosclerotic calcifications are seen. Abdominal wall: Unremarkable. Bones: Degenerative changes in the visualized spine. Bilateral total hip arthroplasties are seen. The re is grade 1 retrolisthesis of and L1-L2 and L2-L3. Anterior wedge deformity of L1 it is unchanged f rom prior exam. IMPRESSION: Findings are compatible with acute diverticulitis of the sigmoid flexure through sigmoid colon withou t evidence of perforation or abscess. ACT 112: Negative or not required by law. Electronically signed by: Deven Beltran M.D. 07/11/2021 7:32 AM
--- NOTE | 2021-07-11 08:10 | CT Scan Report ---
CT ANGIOGRAPHY OF THE CHEST, PULMONARY EMBOLUS PROTOCOL CLINICAL HISTORY: Shortness of breath. COMPARISON STUDY: Chest CT July 03, 2007. Chest radiograph July 10, 2021. TECHNIQUE: Following IV administration of 120 mL of Optiray, helical axial images of the chest were o btained utilizing the pulmonary embolus protocol. Maximal intensity projections and sagittal and cor onal reformats were viewed on an independent 3D workstation. IV contrast was administered without co mplication. Automated exposure control was utilized for the study. A dose lowering technique was ut ilized adhering to the principles of ALARA. CT DOSE: 1109.23 mGy.cm FINDINGS: No pulmonary emboli are identified. There is no thoracic aortic dissection. Mild cardiomeg дмитрий is noted. There is dilatation of the right heart chambers with straightening of the interventricu lar septum. There is slight dilatation of the left and right pulmonary arteries. Small hiatal hernia is present. The esophagus is mildly dilated and fluid-filled. No enlarged thoracic lymph nodes are pr esent. There is no pneumothorax. Trace left pleural effusion is noted. Subpleural opacities favor ate lectasis. No consolidation to suggest pneumonia. Central airways are patent. The abdomen and pelvis w ill be reported separately. Perisplenic ascites is noted. There is wall thickening of the splenic fle xure of the colon, better depicted on the CT of the abdomen and pelvis. IMPRESSION: 1. No pulmonary emboli identified. 2. No consolidation to suggest pneumonia. Subpleural opacities which favor atelectasis. 3. Dilatation of the right heart chambers and straightening of the interventricular septum which rais es the possibility of elevated right heart pressures/pulmonary arterial hypertension. 4. Small hiatal hernia. Fluid-filled dilated esophagus. ACT 112: Negative or not required by law. Electronically signed by: Williams Roca M.D. 07/11/2021 8:08 AM
[2021-07-11] MEDS: LORazepam 0.5 MG TAB PO SCH (08:18)
[2021-07-11] MEDS: MULTIVITAMIN TAB PO SCH (08:18)
[2021-07-11] MEDS: VENLAFAXINE HCL XR 150 MG CAPXR PO SCH (08:18)
[2021-07-11] MEDS: ASPIRIN 81 MG ECTAB PO SCH (08:18)
--- NOTE | 2021-07-11 08:45 | Orthopedic Progress Note ---
Date of Service July 10, 2021 Assessment & Plan (1) Status post left hip replacement: She is doing fairly well with her hip but she is struggling maintaining her pressures and with her atrial fibrillation. She is currently in the intensive care unit. She is responsive and states that she feels okay. The dietetic aide and the hospitalist will continue to run the necessary tests to make sure that she is healthy before discharge. She can resume physical therapy when deemed appropriate by the hospitalist. Erin Lockhart was seen and examined at bedside this morning. Overall she seems to be doing fairly well with regards to her hip. She had a syncopal episode yesterday. She continued to have diarrhea and was hypotensive. She then went into atrial fibrillation. She went to telemetry and then there was a need to put her on pressors. She then went to the intensive care unit. Her vital signs are improved but she continues to need the pressors. They have been given her fluids. Review of Systems All systems reviewed & are unremarkable except as noted in HPI & below. Physical Exam On physical examination of the left hip, there is minimal ecchymosis. The dressing is clean and dry. There is no signs of continued bleeding around the hip. Her leg lengths are equal. She is not having much hip pain. Results & Data Results & Data Laboratory Results . Diagnostic Findings . PG Care Time/CCT Total # of Minutes Spent Total Time Spent with Patient: Total time spent is greater than 50% in coordination of care (as documented) at patient's floor/unit and/or counseling patient: Coding Level of Care Code 32665 Post Operative Follow-Up Diagnoses Status post left hip replacement Z96.642
--- NOTE | 2021-07-11 09:17 | Communication Note ---
Date of Service: July 11, 2021 Received in sign out from Walter Casas. Actively weaning vasoactive. Stopping additional fluids after additional liter of fluid or off vasoactive medications. ECHO pending Holding digoxin, appears to have converted into sinus arrhythmia. Reachecking LFTS in AM. Troponins negative x2 checking addtional trop - EKG lateral T-wave inversions new in june 2021 EKGs Possibly acute diverticulitis - ceftriaxone plus flagyl given critical illness/hypotension Patient was discussed in multidisciplinary rounds I have personally spent 45 minutes of critical care time in the direct management of this patient. This is a life/limb threatening event. This includes time spent evaluating patient, direct bedside care, chart review, placing orders, interpretation of diagnostic studies, discussion with consultants, patient, and/or family members regarding treatment decisions, as well as other required patient management activities. This time is exclusive of all separately billable procedures, and teaching time and separate from and in addition to any other critical care service time. Coding Level of Care Code Critical Care nely shah'minoo 30 min
[2021-07-11] MEDS: cefTRIAXone SODIUM 1,000 MG in DEXTROSE 5% 50 ML IV SCH (10:58)
[2021-07-11] MEDS: metroNIDAZOLE 500 MG/100 ML BAG IV SCH ×2 (10:58→19:34)
[2021-07-11] MEDS: ENOXAPARIN INJ 40 MG/0.4 ML SYR SQ SCH (11:30)
--- NOTE | 2021-07-11 12:46 | Hospitalist Progress Note ---
Date of Service July 11, 2021 Assessment & Plan (1) Status post left hip replacement: Plan: S/p TAJ with Dr. Kumar on 07/07/2021. Doing well from that perspective. No major concerns per Dr. Kumar, and site looks stable without bruising or hematoma noted. - Hgb down to 9.[address] Kumar, this is expected from surgery and represents expected acute blood loss anemia. He felt this was an expected kelsey and did not warrant imaging. - Repeat hgb overnight, then in the AM have been stable. - Can consider IV iron to help replenish iron stores if hgb stable. (2) Diverticulitis: Plan: CT a/p on 07/11 showed "acute diverticulitis of the sigmoid flexure through sigmoid colon without evidence of perforation or abscess." - Abx per ICU team (3) Atrial fibrillation with rapid ventricular response: Plan: Went into afib with RVR on 07/10-07/11. - Presently with HR in the 90s. - Echo pending per ICU team (4) Syncope: Plan: Likely vasovagal from micturition, dehydration, and hypovolemia. Had classic prodrome symptoms of flushing and lightheadedness prior to syncope and no confusion afterward. - MRI brain done after episode with no indication of CVA. (5) Diarrhea: Plan: Large volume and frequency of stools on 07/10. C. diff negative. - Hold standing stool softeners. - Imodium PRN - Ordered full stool PCR set. (6) Rose's palsy: Plan: Long-standing history. Possibly mildly worsened from syncopal episode, stress from anesthesia, and hypovolemia. - Monitor (7) Hypertension: Plan: In notes as history of. Not presently on any medications for it. - As above (8) Anxiety: Plan: Recent admission for abrupt withdrawal of her medications. Now undertaking slow taper with PCP. - Continue home venlafaxine and Ativan (9) DVT prophylaxis: Plan: Lovenox 40 mg SQ daily per ICU Admission and Anticipated Discharge Date Admission Date: July 08, 2021 Subjective Doing fairly well today. Reports some mild abdominal pain, but otherwise, in no distress. Reports no fevers/chills, chest pain, shortness of breath, nausea, or vomiting. Overnight, she had continued low blood pressure requiring further fluids, IV pressors, and transfer to the ICU. Physical Exam Constitutional: WD/WN, vitals as above Eyes: EOM intact bilaterally; no conjunctival abnormality ENMT: external ear and nose normal, oropharynx normal Neck: trachea midline, no thyromegaly normal visual inspection Respiratory: normal respiratory effort, lungs clear to auscultation no respiratory distress Cardiovascular: RRR, no murmur, no edema Gastrointestinal (Abdomen): Inspection/Auscultation: + abdomen distended Percussion/Palpation: + abdomen tender (Mildly, diffuse) and abdomen soft; no guarding and abdomen not rigid Musculoskeletal: no cyanosis or clubbing, extremities motor strength 5/5 (Did not test LLE due to prior surgery, but otherwise good strength) Hip: + hip abnormal to inpsection (Left hip with bandaging. Mild bruising. No hematoma. No tenderness noted.) and + surgical incision Skin: no rashes, warm and dry Neurologic: moves all extremities and awake Speech / Cognition: + abnormal speech; normal cognition Psychiatric: Orientation: alert, oriented to person and cooperative Results & Data Results & Data ([facility]) Vital Signs (Past 12 Hours) Vital Signs Temp Pulse Pulse Resp BP BP Pulse Ox 07/11/21 09:30 90 21 119/67 94 07/11/21 09:15 100 H 21 125/55 L 93 07/11/21 09:00 91 H 20 119/56 L 94 07/11/21 08:45 89 20 115/53 L 94 07/11/21 08:31 101 H 21 117/58 L 92 07/11/21 08:30 96 H 19 93 07/11/21 08:15 93 H 21 115/47 L 92 07/11/21 08:00 98 H 22 105/61 93 07/11/21 07:45 99 H 20 95/66 L 93 07/11/21 07:30 98 H 20 121/67 95 07/11/21 07:17 100 H 22 118/59 L 07/11/21 06:12 105 H 07/11/21 03:45 36.8 C 129 H 25 H 95 07/11/21 03:43 80/52 L 94 07/11/21 03:30 136 H 07/11/21 03:00 124 H 80/42 L 07/11/21 02:25 122 H 87/55 L 07/11/21 02:05 36.7 C 117 H 18 75/46 L 92 PG Care Time/CCT Total # of Minutes Spent Total Time Spent with Patient: Total time spent is greater than 50% in coordination of care (as documented) at patient's floor/unit and/or counseling patient: Coding Level of Care Code 85217 Subseq Hosp Care Lvl 3 Diagnoses Status post left hip replacement Z96.642 Syncope R55 Diarrhea R19.7 Rose's palsy G51.0 Hypertension I10 Anxiety F41.9 DVT prophylaxis Z29.9 Atrial fibrillation with rapid ventricular response I48.91 Diverticulitis K57.92
--- NOTE | 2021-07-11 19:20 | XCELERA ---
[id number]
[2021-07-12] MEDS: metroNIDAZOLE 500 MG/100 ML BAG IV SCH ×3 (03:06→21:31)
[2021-07-12] MEDS: LOPERAMIDE HCL 2 MG CAP PO PRN ×2 (03:22→09:20)
[2021-07-12] MEDS: ACETAMINOPHEN 500 MG TAB PO SCH ×2 (05:18→13:47)
[2021-07-12 05:23] LABS: Hematocrit (blood only) 24.3 % (37-47); Hemoglobin 8.3 g/dL (12.0-16.0); Mean Corpuscular Hemoglobin 34.9 pg (25-34); Mean Corpuscular Hgb Conc 34.2 g/dL (32-36); Mean Corpuscular Volume 102.1 fL (80-100); Mean Platelet Volume 11.1 fL (7.4-10.4); Platelet Count 177 K/uL (130-400); RDW Standard Deviation 52.4 fL (36.4-46.3); Red Blood Count 2.38 M/uL (4.2-5.4); White Blood Count 8.57 K/uL (4.8-10.8)
[2021-07-12 05:44] LABS: Albumin Level 2.9 gm/dl (3.4-5.0); BUN Creatinine Ratio 39.1 (10-20); Bilirubin Direct 0.2 mg/dl (0-0.2); Bilirubin,Total 0.6 mg/dl (0.2-1.0); Calcium 8.2 mg/dl (8.5-10.1); Creatinine Clr Calc Pharmacy 57.5 ml/min; Est GFR (African American) 94.6 ml/min; Est GFR (Non-African American) 81.6 ml/min; Magnesium 2.2 mg/dl (1.7-2.4); Phosphorus 2.3 mg/dl (2.5-4.9); Potassium 3.4 mmol/L (3.5-5.1); Troponin I 0.18 ng/ml (0-0.04)
[2021-07-12 06:00] LABS: Basophils # (auto) 0.01 K/uL (0-0.2); Basophils % (auto) 0.1 %; Eosinophils # (auto) 0.15 K/uL (0-0.5); Eosinophils % (auto) 1.8 %; Immature Granulocytes # (auto) 0.03 K/uL (0.00-0.02); Immature Granulocytes % (auto) 0.4 %; Lymphocytes # (auto) 1.18 K/uL (1.2-3.4); Lymphocytes % (auto) 13.8 %; Monocytes # (auto) 1.53 K/uL (0.11-0.59); Monocytes % (auto) 17.9 %; Neutrophils # (auto) 5.67 K/uL (1.4-6.5)
--- NOTE | 2021-07-12 06:28 | Orthopedic Progress Note ---
Date of Service July 12, 2021 Assessment & Plan (1) Status post left hip replacement: Unfortunately Chantelle still dealing with diverticulitis and very loose stools. Her blood pressure remains low. She was started on Lovenox postoperatively and she has some ecchymosis around her hip. This is the expected amount of ecchymosis that I would see after a normal hip replacement surgery. There is no drainage from the incision. Her hemoglobin is down to 8.3. This is a four-point drop from preoperatively. I do not feel that imaging of her hip is necessary at this point, as acute blood loss from the surgery, especially while on Lovenox postoperatively, can cause a similar drop in hemoglobin. She may require a blood transfusion today, but I will leave that up to the discretion of the hospitalist. She can be weightbearing as tolerated on her left hip and we will reconsult physical therapy when she is medically stable. Her dressing can be changed today. Subjective Chantelle was seen and examined at bedside this morning. She was very sleepy when I was in the room. She feels her hip is doing well. She not having much pain. She is still dealing with loose stools. A CT scan shows the diagnosis of diverticulitis. Review of Systems All systems reviewed & are unremarkable except as noted in HPI & below. Physical Exam On physical examination of the left hip, there is ecchymosis around the hip which is to be expected. I pulled back the dressing and the incision is clean and dry without drainage. Results & Data Results & Data Laboratory Results . Diagnostic Findings . PG Care Time/CCT Total # of Minutes Spent Total Time Spent with Patient: Total time spent is greater than 50% in coordination of care (as documented) at patient's floor/unit and/or counseling patient: Coding Level of Care Code 56965 Post Operative Follow-Up Diagnoses Status post left hip replacement Z96.642
--- NOTE | 2021-07-12 06:53 | Electrocardiogram Report ---
Test Reason : Blood Pressure : / mmHG Vent. Rate : 133 BPM Atrial Rate : 153 BPM P-R Int : 000 ms QRS Dur : 066 ms QT Int : 256 ms P-R-T Axes : 000 015 248 degrees QTc Int : 381 ms Poor data quality, interpretation may be adversely affected Atrial fibrillation with rapid ventricular response Abnormal ECG When compared with ECG of 24-JUN-2021 08:46, Atrial fibrillation has replaced Sinus rhythm Confirmed by Richard Winters ([id number]) on 07/12/2021 6:52:53 AM Referred By: Lloyd Kumar Confirmed By:Richard Winters
--- NOTE | 2021-07-12 06:58 | Electrocardiogram Report ---
Test Reason : Blood Pressure : / mmHG Vent. Rate : 089 BPM Atrial Rate : 089 BPM P-R Int : 272 ms QRS Dur : 074 ms QT Int : 338 ms P-R-T Axes : 056 015 180 degrees QTc Int : 411 ms Sinus rhythm with 1st degree A-V block with Premature supraventricular complexes T wave abnormality, consider lateral ischemia Abnormal ECG When compared with ECG of 11-JUL-2021 02:10, (unconfirmed) Sinus rhythm has replaced Atrial fibrillation Vent. rate has decreased BY [address] no longer depressed in Anterior leads Confirmed by Richard Winters ([id number]) on 07/12/2021 6:57:38 AM Referred By: Lloyd Kumar Confirmed By:Richard Winters
[2021-07-12] MEDS: LORazepam 0.5 MG TAB PO SCH (08:24)
[2021-07-12] MEDS: MULTIVITAMIN TAB PO SCH (08:25)
[2021-07-12] MEDS: VENLAFAXINE HCL XR 150 MG CAPXR PO SCH (08:25)
[2021-07-12] MEDS: ENOXAPARIN INJ 40 MG/0.4 ML SYR SQ SCH (08:25)
[2021-07-12] MEDS: ONDANSETRON INJ 2 MG/ML 2 ML VIAL IV PRN (08:35)
[2021-07-12] MEDS ORDERED: POTASSIUM CHLORIDE 10 MEQ TABCR PO ONE (08:55)
[2021-07-12] MEDS ORDERED: POTASSIUM PHOS 3 MMOL/1 ML INFUSION IV STA (09:21)
--- NOTE | 2021-07-12 09:21 | Critical Care Progress Note ---
Date of Service July 12, 2021 Assessment & Plan (1) Admitted to intensive care unit: Plan: Reason Critically Ill: 80-year-old female who is status post LEFT total hip arthroplasty who has had a complicated postoperative course consistent with development of voluminous diarrhea, hypovolemia, near syncope, and new onset a fib. Now hypotensive with a fib requiring ICU level care. 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 CARDIAC/VASCULAR - * New onset A fib w/ RVR: resolved * Would consider systemic anticoagulation when cleared with orthopedics * Elevated trop: downtrending. Likely related to recent afib RESPIRATORY - * Hypoxia:resovled GI/NUTRITION - * Diarrhea: * Symptomatic management RENAL/LYTES - * Mild hypokalemia and hypophosphatemia * potassium phospahate ordered * Suspect baseline CKD - * No concerns at this time. * Strict I&Os. ENDO - * No h/o DM or Thyroid Dz * BSGs per unit protocol. ISS --> gtt per unit policy. HEME - * Anemia: * Anticipated blood loss s/p TAJ. * Likely dilutional component as well w/ recent IVF boluses. ID - * afebrile LINES/IV ACCESS - * PIVs x1 * 20g Endurance catheter to the RUE DVT PROPHYLAXIS - * Lovenox ok with orthopedics * SCDs patient improved and stable for downgrade from ICU (2) Atrial fibrillation with rapid ventricular response: (3) Prolonged QT interval: (4) Diarrhea: (5) Hypotension: (6) Syncope: (7) Status post left hip replacement: Admission and Anticipated Discharge Date Admission Date: July 11, 2021 Subjective pressors weaned off yesterday. Dianrrhea continues Physical Exam Constitutional: General: Alert. nontoxic. Skin: Warm, dry, Head: Atraumatic Ears, nose, mouth and throat: airway patent Cardiovascular: Normal peripheral perfusion Respiratory: no respiratory distress Gastrointestinal: Non distended Musculoskeletal: No deformity Results & Data Results & Data ([facility]) Vital Signs (Past 12 Hours) Vital Signs Temp Pulse Resp BP Pulse Ox 07/12/21 06:30 72 15 111/43 L 89 L 07/12/21 06:00 71 22 115/44 L 96 07/12/21 05:30 79 20 117/50 L 07/12/21 05:00 77 23 106/53 L 92 07/12/21 04:30 71 19 116/51 L 07/12/21 04:00 37.1 C 73 20 106/36 L 88 L 07/12/21 03:30 72 21 115/54 L 91 07/12/21 03:00 87 20 110/46 L 87 L 07/12/21 02:48 82 07/12/21 02:30 104 H 27 H 115/52 L 83 L 07/12/21 02:00 74 20 110/50 L 07/12/21 01:32 85 27 H 111/57 L 85 L 07/12/21 01:30 81 24 91 07/12/21 01:00 76 21 108/59 L 89 L 07/12/21 00:30 77 27 H 109/35 L 90 07/12/21 00:00 36.9 C 85 23 90/48 L 91 07/11/21 23:30 80 22 99/57 L 07/11/21 23:01 79 19 93 07/11/21 23:00 81 22 92 07/11/21 22:30 87 15 89 L 07/11/21 22:00 78 22 102/46 L 91 07/11/21 21:30 83 23 106/49 L 91 Critical Care Results & Data Vital Signs (Past 12 Hours) Vital Signs Temp Pulse Resp BP Pulse Ox 07/12/21 06:30 72 15 111/43 L 89 L 07/12/21 06:00 71 22 115/44 L 96 07/12/21 05:30 79 20 117/50 L 07/12/21 05:00 77 23 106/53 L 92 07/12/21 04:30 71 19 116/51 L 07/12/21 04:00 37.1 C 73 20 106/36 L 88 L 07/12/21 03:30 72 21 115/54 L 91 07/12/21 03:00 87 20 110/46 L 87 L 07/12/21 02:48 82 07/12/21 02:30 104 H 27 H 115/52 L 83 L 07/12/21 02:00 74 20 110/50 L 07/12/21 01:32 85 27 H 111/57 L 85 L 07/12/21 01:30 81 24 91 07/12/21 01:00 76 21 108/59 L 89 L 07/12/21 00:30 77 27 H 109/35 L 90 07/12/21 00:00 36.9 C 85 23 90/48 L 91 07/11/21 23:30 80 22 99/57 L 07/11/21 23:01 79 19 93 07/11/21 23:00 81 22 92 07/11/21 22:30 87 15 89 L 07/11/21 22:00 78 22 102/46 L 91 07/11/21 21:30 83 23 106/49 L 91 Lab & Micro Results (Past 24 Hours) RBC 2.38 M/uL (4.2-5.4) L 07/12/21 WBC 8.57 K/uL (4.8-10.8) 07/12/21 Hgb 8.3 g/dL (12.0-16.0) L 07/12/21 Hct 24.3 % (37-47) L 07/12/21 MCV 102.1 fL (80-100) H 07/12/21 MCH 34.9 pg (25-34) H 07/12/21 MCHC 34.2 g/dL (32-36) 07/12/21 RDW Standard Deviation 52.4 fL (36.4-46.3) H 07/12/21 RDW Coefficient of Variation 14.0 % (11.5-14.5) 07/12/21 Plt Count 177 K/uL (130-400) 07/12/21 MPV 11.1 fL (7.4-10.4) H 07/12/21 Neutrophils (%) (Auto) 66.0 % 07/12/21 Lymphocytes (%) (Auto) 13.8 % 07/12/21 Monocytes # (Auto) 1.53 K/uL (0.11-0.59) H 07/12/21 Eosinophils # (Auto) 0.15 K/uL (0-0.5) 07/12/21 Immature Granulocyte % (Auto) 0.4 % 07/12/21 Neutrophils # (Auto) 5.67 K/uL (1.4-6.5) 07/12/21 Lymphocytes # (Auto) 1.18 K/uL (1.2-3.4) L 07/12/21 Monocytes # (Auto) 1.53 K/uL (0.11-0.59) H 07/12/21 Eosinophils # (Auto) 0.15 K/uL (0-0.5) 07/12/21 Basophils # (Auto) 0.01 K/uL (0-0.2) 07/12/21 Immature Granulocyte # (Auto) 0.03 K/uL (0.00-0.02) H 07/12/21 Na 138 mmol/L (136-145) 07/12/21 K 3.4 mmol/L (3.5-5.1) L 07/12/21 Cl 109 mmol/L (98-107) H 07/12/21 CO2 22 mmol/L (21-32) 07/12/21 Anion Gap 7 (3-11) 07/12/21 BUN 27 mg/dl (6-23) H 07/12/21 Creatinine 0.69 mg/dl (0.6-1.2) 07/12/21 Estimated GFR ( Amer) 94.6 ml/min 07/12/21 Estimated GFR (Non-Af Amer) 81.6 ml/min 07/12/21 BUN/Creatinine Ratio 39.1 (10-20) H 07/12/21 Glu 94 mg/dl (70-99(Fasting)) 07/12/21 Ca 8.2 mg/dl (8.5-10.1) L 07/12/21 Phosphorus Level 2.3 mg/dl (2.5-4.9) L 07/12/21 Total Bilirubin 0.6 mg/dl (0.2-1.0) 07/12/21 Direct Bilirubin 0.2 mg/dl (0-0.2) 07/12/21 AST 58 U/L (13-39) H 07/12/21 ALT 44 U/L (7-52) 07/12/21 Alkaline Phosphatase 108 U/L (34-104) H 07/12/21 TP 5.0 gm/dl (6.0-8.3) L 07/12/21 Albumin 2.9 gm/dl (3.4-5.0) L 07/12/21 Mg 2.2 mg/dl (1.7-2.4) 07/12/21 04:49 07/12/21 Calcium Level 8.2 mg/dl (8.5-10.1) L 07/12/21 04:49 07/12/21 I & O Totals 24 Hours 07/11/21 07/12/21 07/13/21 06:59 06:59 06:59 Intake Total 3565.8 / 3565.8 3305.037 / 3305.037 Output Total 922 / 922 Balance 3565.8 / 3565.8 2383.037 / 2383.037 Cumulative 06/16/21 10:11 thru 07/12/21 06:00 Intake Total 51782.504 Output Total 1872 Balance 8790.504 RT Ventilator Mngmt (Last Documented) Ventilator Ordered Settings Respiratory Rate 15 07/12/21 06:30 Ventilator - PT Measurements Respiratory Rate 15 Coding Level of Care Code 17623 Subseq Hosp Care Lvl 2 Diagnoses Admitted to intensive care unit Z78.9 Atrial fibrillation with rapid ventricular response I48.91 Prolonged QT interval R94.31 Diarrhea R19.7 Hypotension I95.9 Syncope R55 Status post left hip replacement Z96.642
[2021-07-12] MEDS ORDERED: POTASSIUM PHOSPHATE 15 MMOL in SODIUM CHLORIDE 0.9% 250 ML IV ONE (10:00)
[2021-07-12] MEDS: cefTRIAXone SODIUM 1,000 MG in DEXTROSE 5% 50 ML IV SCH (11:36)
--- NOTE | 2021-07-12 12:26 | Hospitalist Progress Note ---
Date of Service July 12, 2021 Assessment & Plan (1) Diverticulitis: Plan: CT a/p on 07/11 showed "acute diverticulitis of the sigmoid flexure through sigmoid colon without evidence of perforation or abscess." Stool testing on 07/10 was negative. - Continue ceftriaxone & metronidazole - Advance diet as able - Imodium PRN for diarrhea (2) Atrial fibrillation with rapid ventricular response: Plan: Went into afib with RVR on 07/11. Total time in afib seems to be 7 hours (in around 2am, out by 9am). Echo showed EF 55 - 60% and otherwise normal. - Presently in sinus with HR in the 90s. - Hold full anticoagulation given anemia and recent TAJ. (3) Status post left hip replacement: Plan: S/p TAJ with Dr. Kumar on 07/07/2021. Doing well from that perspective. No major concerns per Dr. Kumar, and site looks stable without bruising or hematoma noted. - Can consider IV iron to help replenish iron stores if hgb stable. (4) Syncope: Plan: Likely vasovagal from micturition, dehydration, and hypovolemia. Had classic prodrome symptoms of flushing and lightheadedness prior to syncope and no confusion afterward. - MRI brain done after episode with no indication of CVA. (5) Diarrhea: Plan: Large volume and frequency of stools on 07/10. C. diff & stool testing was negative on 07/10. - Hold standing stool softeners. - Imodium PRN (6) Rose's palsy: Plan: Long-standing history. Possibly mildly worsened from syncopal episode, stress from anesthesia, and hypovolemia. - Monitor (7) Hypertension: Plan: In notes as history of. Not presently on any medications for it. BP stable presently at 110/40. - As above (8) Anxiety: Plan: Recent admission for abrupt withdrawal of her medications. Now undertaking slow taper with PCP. - Continue home venlafaxine and Ativan (9) DVT prophylaxis: Plan: Lovenox 40 mg SQ daily Admission and Anticipated Discharge Date Admission Date: July 11, 2021 Subjective Still having some abdominal pain today. Not much appetite. Reports no fevers/chills, chest pain, shortness of breath, nausea, or vomiting. Physical Exam Constitutional: WD/WN, vitals as above Eyes: EOM intact bilaterally; no conjunctival abnormality ENMT: external ear and nose normal, oropharynx normal Neck: trachea midline, no thyromegaly normal visual inspection Respiratory: normal respiratory effort, lungs clear to auscultation no respiratory distress Cardiovascular: RRR, no murmur, no edema Gastrointestinal (Abdomen): Inspection/Auscultation: + abdomen distended Percussion/Palpation: + abdomen tender (Mildly, diffuse) and abdomen soft; no guarding and abdomen not rigid Musculoskeletal: no cyanosis or clubbing, extremities motor strength 5/5 (Did not test LLE due to prior surgery, but otherwise good strength) Hip: + hip abnormal to inpsection (Left hip with bandaging. Mild bruising. No hematoma. No tenderness noted.) and + surgical incision Skin: no rashes, warm and dry Neurologic: moves all extremities and awake Speech / Cognition: + abnormal speech; normal cognition Psychiatric: Orientation: alert, oriented to person and cooperative Results & Data Results & Data ([facility]) Vital Signs (Past 12 Hours) Vital Signs Temp Pulse Resp BP Pulse Ox 07/12/21 06:30 72 15 111/43 L 89 L 07/12/21 06:00 71 22 115/44 L 96 07/12/21 05:30 79 20 117/50 L 07/12/21 05:00 77 23 106/53 L 92 07/12/21 04:30 71 19 116/51 L 07/12/21 04:00 37.1 C 73 20 106/36 L 88 L 07/12/21 03:30 72 21 115/54 L 91 07/12/21 03:00 87 20 110/46 L 87 L 07/12/21 02:48 82 07/12/21 02:30 104 H 27 H 115/52 L 83 L 07/12/21 02:00 74 20 110/50 L 07/12/21 01:32 85 27 H 111/57 L 85 L 07/12/21 01:30 81 24 91 07/12/21 01:00 76 21 108/59 L 89 L 07/12/21 00:30 77 27 H 109/35 L 90 PG Care Time/CCT Total # of Minutes Spent Total Time Spent with Patient: Total time spent is greater than 50% in coordination of care (as documented) at patient's floor/unit and/or counseling patient: Coding Level of Care Code 58515 Subseq Hosp Care Lvl 3 Diagnoses Status post left hip replacement Z96.642 Diverticulitis K57.92 Atrial fibrillation with rapid ventricular response I48.91 Syncope R55 Diarrhea R19.7 Rose's palsy G51.0 Hypertension I10 Anxiety F41.9 DVT prophylaxis Z29.9
[2021-07-13] MEDS: metroNIDAZOLE 500 MG/100 ML BAG IV SCH ×3 (04:33→19:29)
[2021-07-13 06:15] LABS: Hematocrit (blood only) 26.5 % (37-47); Hemoglobin 9.1 g/dL (12.0-16.0); Mean Corpuscular Hemoglobin 35.1 pg (25-34); Mean Corpuscular Hgb Conc 34.3 g/dL (32-36); Mean Corpuscular Volume 102.3 fL (80-100); Mean Platelet Volume 10.8 fL (7.4-10.4); Platelet Count 230 K/uL (130-400); RDW Coefficient of Variation 13.9 % (11.5-14.5); RDW Standard Deviation 51.5 fL (36.4-46.3); Red Blood Count 2.59 M/uL (4.2-5.4)
--- NOTE | 2021-07-13 06:27 | Orthopedic Progress Note ---
Date of Service July 13, 2021 Assessment & Plan (1) Status post left hip replacement: Overall she seems to be improving. Her vital signs are stable. She was seen by physical therapy yesterday and was able to ambulate. She will be seen by physical therapy again today. Her H&H is stable this morning. She continues on the Lovenox 40 mg subcu daily for DVT prophylaxis. She is on ceftriaxone and Flagyl for her diverticulitis. Erin Lockhart was seen and examined at bedside this morning. Overall she seems to be doing better. She is having too much pain in her left hip. She has been taken from the ICU to the PCU. She has no new complaints. Review of Systems All systems reviewed & are unremarkable except as noted in HPI & below. Physical Exam On physical examination of the left hip, the dressing has been changed. Her leg lengths are equal. She is active dorsiflexion plantarflexion of her left ankle. I will see any significant hematomas or ecchymosis. Results & Data Results & Data Laboratory Results . Diagnostic Findings . PG Care Time/CCT Total # of Minutes Spent Total Time Spent with Patient: Total time spent is greater than 50% in coordination of care (as documented) at patient's floor/unit and/or counseling patient: Coding Level of Care Code 62923 Post Operative Follow-Up Diagnoses Status post left hip replacement Z96.642
[2021-07-13 06:36] LABS: BUN Creatinine Ratio 34.8 (10-20); Creatinine Clr Calc Pharmacy 60.2 ml/min; Est GFR (Non-African American) 82.8 ml/min; Magnesium 1.8 mg/dl (1.7-2.4); Potassium 3.7 mmol/L (3.5-5.1)
[2021-07-13 07:01] LABS: Folate (Folic Acid) > 22.30 ng/ml (>5.38)
[2021-07-13 07:02] LABS: Vitamin B12 1307 pg/ml (180-914)
[2021-07-13] MEDS: ONDANSETRON INJ 2 MG/ML 2 ML VIAL IV PRN (08:01)
--- NOTE | 2021-07-13 09:12 | XRay Report ---
XR KUB/Abdomen 1 view CLINICAL HISTORY: Abdominal pain, distension TECHNIQUE: 1 view of the abdomen was obtained. Comparison: Comparison is made to abdomen radiograph 08/14/2006 FINDINGS: Bilateral total hip arthroplasties are seen. Surgical familia are about the left hip. Cholecystectomy clips are seen. Degenerative changes are seen in the visualized skeleton. The bowel gas pattern is n onobstructive. Small stool burden is seen. IMPRESSION: Nonobstructive bowel gas pattern. ACT 112: Negative or not required by law. Electronically signed by: Deven Beltran M.D. 07/13/2021 9:10 AM
[2021-07-13] MEDS: LORazepam 0.5 MG TAB PO SCH (09:52)
[2021-07-13] MEDS ORDERED: POTASSIUM PHOS 3 MMOL/1 ML INFUSION IV STA (10:35)
--- NOTE | 2021-07-13 10:35 | Hospitalist Progress Note ---
Date of Service July 13, 2021 Assessment & Plan (1) Diverticulitis: Plan: CT a/p on 07/11 showed "acute diverticulitis of the sigmoid flexure through sigmoid colon without evidence of perforation or abscess." Stool testing on 07/10 was negative. Per , her last episode was ~5 years ago, but took "months" to resolve. - Continue ceftriaxone & metronidazole - Advance diet as able -> Still on NPO. She does not feel ready to advance. Given stability, will hold off on surgical consult, but low threshold to consult if any worsening. (2) Anemia: Plan: Baseline hgb is normal ~15. Dropped to 11.3 after surgery, and has gone as low as 8.3. Macrocytic. B12/folate normal. - Likely expected acute blood loss anemia from surgery - Hgb presently 9.1. Will defer IV iron at this time given infection. (3) Atrial fibrillation with rapid ventricular response: Plan: Went into afib with RVR on 07/11. Total time in afib seems to be 7 hours (in around 2am, out by 9am). Echo showed EF 55 - 60% and otherwise normal. - Presently in sinus with HR in the 90s. - Hold full anticoagulation given anemia and recent TAJ. (4) Status post left hip replacement: Plan: S/p TAJ with Dr. Kumar on 07/07/2021. Doing well from that perspective. No major concerns per Dr. Kumar, and site looks stable without bruising or hematoma noted. - Can consider IV iron to help replenish iron stores if hgb stable. (5) Syncope: Plan: Likely vasovagal from micturition, dehydration, and hypovolemia. Had classic prodrome symptoms of flushing and lightheadedness prior to syncope and no confusion afterward. - MRI brain done after episode with no indication of CVA. (6) Diarrhea: Plan: Large volume and frequency of stools on 07/10. C. diff & stool testing was negative on 07/10. - Hold standing stool softeners. (7) Rose's palsy: Plan: Long-standing history. Possibly mildly worsened from syncopal episode, stress from anesthesia, and hypovolemia. - Monitor (8) Hypertension: Plan: In notes as history of. Not presently on any medications for it. BP stable presently at 130/70. - As above (9) Anxiety: Plan: Recent admission for abrupt withdrawal of her medications. Now undertaking slow taper with PCP. - Continue home venlafaxine and Ativan (10) DVT prophylaxis: Plan: Lovenox 40 mg SQ daily Admission and Anticipated Discharge Date Admission Date: July 11, 2021 Subjective Still not feeling great today. Her abdominal pain isn't severe, but mostly just nausea and loss of appetite. Unchanged significantly from yesterday. Reports no diarrhea since yesterday. Reports no fevers/chills, chest pain, shortness of breath, or vomiting. Physical Exam Constitutional: WD/WN, vitals as above Eyes: EOM intact bilaterally; no conjunctival abnormality ENMT: external ear and nose normal, oropharynx normal Neck: trachea midline, no thyromegaly normal visual inspection Respiratory: normal respiratory effort, lungs clear to auscultation no respiratory distress Cardiovascular: RRR, no murmur, no edema Gastrointestinal (Abdomen): Inspection/Auscultation: + abdomen distended Percussion/Palpation: + abdomen tender (Moderate, mostly in RLQ and LLQ) and abdomen soft; no guarding and abdomen not rigid Musculoskeletal: no cyanosis or clubbing, extremities motor strength 5/5 (Did not test LLE due to prior surgery, but otherwise good strength) Hip: + hip abnormal to inpsection (Left hip with bandaging. Mild bruising. No hematoma. No tenderness noted.) and + surgical incision Skin: no rashes, warm and dry Neurologic: moves all extremities and awake Speech / Cognition: + abnormal speech; normal cognition Psychiatric: Orientation: alert, oriented to person and cooperative Results & Data Results & Data ([facility]) Vital Signs (Past 12 Hours) Vital Signs Temp Pulse Pulse Resp BP Pulse Ox 07/13/21 09:47 36.8 C 89 18 129/71 96 07/13/21 07:34 76 07/13/21 03:42 37.0 C 82 18 120/75 95 07/13/21 00:00 85 PG Care Time/CCT Total # of Minutes Spent Total Time Spent with Patient: Total time spent is greater than 50% in coordination of care (as documented) at patient's floor/unit and/or counseling patient: Coding Level of Care Code 33835 Subseq Hosp Care Lvl 3 Diagnoses Diverticulitis K57.92 Atrial fibrillation with rapid ventricular response I48.91 Status post left hip replacement Z96.642 Syncope R55 Diarrhea R19.7 Rose's palsy G51.0 Hypertension I10 Anxiety F41.9 DVT prophylaxis Z29.9 Anemia D64.9
[2021-07-13] MEDS ORDERED: SODIUM CHLORIDE 0.9% 1000ML 1,000 ML IV SCH (10:45)
[2021-07-13] MEDS ORDERED: POTASSIUM PHOSPHATE 21 MMOL in DEXTROSE 5% 500 ML IV ONE (11:00)
[2021-07-13] MEDS: ENOXAPARIN INJ 40 MG/0.4 ML SYR SQ SCH (11:30)
[2021-07-13] MEDS: VENLAFAXINE HCL XR 150 MG CAPXR PO SCH (11:31)
[2021-07-13] MEDS: MULTIVITAMIN TAB PO SCH (11:31)
[2021-07-13] MEDS: cefTRIAXone SODIUM 1,000 MG in DEXTROSE 5% 50 ML IV SCH (12:55)
[2021-07-13] MEDS: oxyCODONE HCL IR 5 MG TAB (IMMEDIATE RELEASE) PO PRN (23:35)
[2021-07-14] MEDS: metroNIDAZOLE 500 MG/100 ML BAG IV SCH ×3 (03:59→19:25)
[2021-07-14 06:34] LABS: Hematocrit (blood only) 26.2 % (37-47); Hemoglobin 9.1 g/dL (12.0-16.0); Mean Corpuscular Hemoglobin 34.6 pg (25-34); Mean Corpuscular Hgb Conc 34.7 g/dL (32-36); Mean Corpuscular Volume 99.6 fL (80-100); Nucleated RBC # (auto) 0.02 K/uL (0-0); Nucleated RBC % (auto) 0.2 %; Platelet Count 274 K/uL (130-400); RDW Coefficient of Variation 13.8 % (11.5-14.5); RDW Standard Deviation 50.1 fL (36.4-46.3); Red Blood Count 2.63 M/uL (4.2-5.4)
[2021-07-14 06:57] LABS: Albumin Globulin Ratio 1.2 (0.9-2); Albumin Level 2.6 gm/dl (3.4-5.0); BUN Creatinine Ratio 22.2 (10-20); Bilirubin,Total 0.4 mg/dl (0.2-1.0); Calcium 7.8 mg/dl (8.5-10.1); Est GFR (African American) 97.5 ml/min; Est GFR (Non-African American) 84.1 ml/min; Globulin 2.2 gm/dl (2.5-4.0); Magnesium 1.6 mg/dl (1.7-2.4); Phosphorus 2.9 mg/dl (2.5-4.9); Potassium 3.8 mmol/L (3.5-5.1); Total Protein 4.8 gm/dl (6.0-8.3)
[2021-07-14] MEDS: LORazepam 0.5 MG TAB PO SCH (09:18)
[2021-07-14] MEDS: ACETAMINOPHEN 325 MG TAB PO PRN (09:19)
[2021-07-14] MEDS: VENLAFAXINE HCL XR 150 MG CAPXR PO SCH (09:19)
[2021-07-14] MEDS: ENOXAPARIN INJ 40 MG/0.4 ML SYR SQ SCH (09:20)
[2021-07-14] MEDS: MULTIVITAMIN TAB PO SCH (09:20)
[2021-07-14] MEDS ORDERED: SODIUM CHLORIDE 0.9% 1000ML 1,000 ML IV ONE (10:55)
--- NOTE | 2021-07-14 10:55 | Hospitalist Progress Note ---
Date of Service July 14, 2021 Assessment & Plan (1) Diverticulitis: Plan: CT a/p on 07/11 showed "acute diverticulitis of the sigmoid flexure through sigmoid colon without evidence of perforation or abscess." Stool testing on 07/10 was negative. Per , her last episode was ~5 years ago, but took "months" to resolve. Had hypovolemic shock during acute illness. - Continue ceftriaxone & metronidazole - Advance diet as able -> Advanced to clears today. Encouraged very small sips to start. Given stability, will hold off on surgical consult, but low threshold to consult if any worsening. (2) Anemia: Plan: Baseline hgb is normal ~15. Dropped to 11.3 after surgery, and has gone as low as 8.3. Macrocytic. B12/folate normal. - Likely expected acute blood loss anemia from surgery - Hgb presently 9.1. Will defer IV iron at this time given infection. (3) Atrial fibrillation with rapid ventricular response: Plan: Went into afib with RVR on 07/11. Total time in afib seems to be 7 hours (in around 2am, out by 9am). Echo showed EF 55 - 60% and otherwise normal. - Presently in sinus with HR in the 90s. No recurrence of afib. - Hold full anticoagulation given anemia and recent TAJ. (4) Status post left hip replacement: Plan: S/p TAJ with Dr. Kumar on 07/07/2021. Doing well from that perspective. No major concerns per Dr. Kumar, and site looks stable without bruising or hematoma noted. - Can consider IV iron to help replenish iron stores if hgb stable. (5) Syncope: Plan: Likely vasovagal from micturition, dehydration, and hypovolemia. Had classic prodrome symptoms of flushing and lightheadedness prior to syncope and no confusion afterward. - MRI brain done after episode with no indication of CVA. (6) Diarrhea: Plan: Large volume and frequency of stools on 07/10. C. diff & stool testing was negative on 07/10. - Hold standing stool softeners. (7) Rose's palsy: Plan: Long-standing history. Possibly mildly worsened from syncopal episode, stress from anesthesia, and hypovolemia. - Monitor (8) Hypertension: Plan: In notes as history of. Not presently on any medications for it. BP stable presently at 100/70. - As above (9) Anxiety: Plan: Recent admission for abrupt withdrawal of her medications. Now undertaking slow taper with PCP. - Continue home venlafaxine and Ativan (10) DVT prophylaxis: Plan: Lovenox 40 mg SQ daily Admission and Anticipated Discharge Date Admission Date: July 11, 2021 Subjective Sadly, no great change today. Still with no appetite. She does not have a lot of abdominal pain though. Still no longer having diarrhea (or any BMs), but also not really passing gas. Reports no fevers/chills, chest pain, shortness of breath, abdominal pain, nausea, or vomiting. Physical Exam Constitutional: WD/WN, vitals as above Eyes: EOM intact bilaterally; no conjunctival abnormality ENMT: external ear and nose normal, oropharynx normal Neck: trachea midline, no thyromegaly normal visual inspection Respiratory: normal respiratory effort, lungs clear to auscultation no respiratory distress Cardiovascular: RRR, no murmur, no edema Gastrointestinal (Abdomen): Inspection/Auscultation: + abdomen distended Percussion/Palpation: + abdomen tender (Moderate, mostly in RLQ and LLQ) and abdomen soft; no guarding and abdomen not rigid Musculoskeletal: no cyanosis or clubbing, extremities motor strength 5/5 (Did not test LLE due to prior surgery, but otherwise good strength) Hip: + hip abnormal to inpsection (Left hip with bandaging. Mild bruising. No hematoma. No tenderness noted.) and + surgical incision Skin: no rashes, warm and dry Neurologic: moves all extremities and awake Speech / Cognition: + abnormal speech; normal cognition Psychiatric: Orientation: alert, oriented to person and cooperative Results & Data Results & Data ([facility]) Vital Signs (Past 12 Hours) Vital Signs Temp Pulse Pulse Resp BP BP Pulse Ox 07/14/21 08:26 80 07/14/21 07:07 36.8 C 98 H 18 101/55 L 96 07/14/21 04:55 95 07/14/21 04:06 36.9 C 86 18 124/62 92 07/14/21 00:00 79 07/13/21 23:23 36.9 C 87 18 163/86 H 95 PG Care Time/CCT Total # of Minutes Spent Total Time Spent with Patient: Total time spent is greater than 50% in coordination of care (as documented) at patient's floor/unit and/or counseling patient: Coding Level of Care Code 71403 Subseq Hosp Care Lvl 2 Diagnoses Diverticulitis K57.92 Anemia D64.9 Atrial fibrillation with rapid ventricular response I48.91 Status post left hip replacement Z96.642 Syncope R55 Diarrhea R19.7 Rose's palsy G51.0 Hypertension I10 Anxiety F41.9 DVT prophylaxis Z29.9
[2021-07-14] MEDS: cefTRIAXone SODIUM 1,000 MG in DEXTROSE 5% 50 ML IV SCH (11:11)
[2021-07-14] MEDS: MAGNESIUM SULFATE / D5W 1 GM/100 ML BAG IV SCH ×3 (12:47→17:18)
--- NOTE | 2021-07-14 15:48 | Orthopedic Progress Note ---
Date of Service July 14, 2021 Assessment & Plan (1) Status post left hip replacement: Her hip seems to be stable. She has been ambulating some today with physical therapy. Her H&H and her vital signs seem stable at this point. She is currently on Flagyl and ceftriaxone. She is on Lovenox 40 mg daily for DVT prophylaxis. She will continue with physical therapy. She is orthopedically stable for discharge when medically ready. Erin Lockhart was seen and examined at bedside this morning. Overall she is doing okay. She says she feels a little bit tired. She worked well today with physical therapy and was able to ambulate around the room. She had no new complaints. Review of Systems All systems reviewed & are unremarkable except as noted in HPI & below. Physical Exam On physical examination of the left hip, the Silverlon dressing is clean and dry. Her leg lengths are equal. I will see any significant ecchymosis. Results & Data Results & Data Laboratory Results . Diagnostic Findings . PG Care Time/CCT Total # of Minutes Spent Total Time Spent with Patient: Total time spent is greater than 50% in coordination of care (as documented) at patient's floor/unit and/or counseling patient: Coding Level of Care Code 26340 Post Operative Follow-Up Diagnoses Status post left hip replacement Z96.642
[2021-07-15] MEDS: oxyCODONE HCL IR 5 MG TAB (IMMEDIATE RELEASE) PO PRN ×3 (00:05→19:16)
[2021-07-15] MEDS: metroNIDAZOLE 500 MG/100 ML BAG IV SCH ×3 (03:52→19:22)
[2021-07-15 07:00] LABS: Hematocrit (blood only) 26.9 % (37-47); Hemoglobin 9.3 g/dL (12.0-16.0); Mean Corpuscular Hemoglobin 34.7 pg (25-34); Mean Corpuscular Hgb Conc 34.6 g/dL (32-36); Mean Corpuscular Volume 100.4 fL (80-100); Mean Platelet Volume 9.8 fL (7.4-10.4); Platelet Count 278 K/uL (130-400); RDW Coefficient of Variation 13.6 % (11.5-14.5); RDW Standard Deviation 49.2 fL (36.4-46.3); Red Blood Count 2.68 M/uL (4.2-5.4)
[2021-07-15 07:26] LABS: BUN Creatinine Ratio 16.1 (10-20); Calcium 7.7 mg/dl (8.5-10.1); Creatinine Clr Calc Pharmacy 70.9 ml/min; Est GFR (African American) 101.3 ml/min; Est GFR (Non-African American) 87.4 ml/min; Magnesium 1.9 mg/dl (1.7-2.4); Phosphorus 2.9 mg/dl (2.5-4.9); Potassium 3.3 mmol/L (3.5-5.1)
[2021-07-15] MEDS: VENLAFAXINE HCL XR 150 MG CAPXR PO SCH (08:09)
[2021-07-15] MEDS: ACETAMINOPHEN 325 MG TAB PO PRN ×2 (08:09→14:34)
[2021-07-15] MEDS: LORazepam 0.5 MG TAB PO SCH (08:09)
[2021-07-15] MEDS: MULTIVITAMIN TAB PO SCH (08:09)
[2021-07-15] MEDS: ENOXAPARIN INJ 40 MG/0.4 ML SYR SQ SCH (08:10)
[2021-07-15] MEDS ORDERED: POTASSIUM CHLORIDE PWD 20 MEQ PACK PO STA ×2 (08:44→15:54)
[2021-07-15] MEDS: cefTRIAXone SODIUM 1,000 MG in DEXTROSE 5% 50 ML IV SCH (10:58)
--- NOTE | 2021-07-15 14:46 | Hospitalist Progress Note ---
Date of Service July 15, 2021 Assessment & Plan (1) Diverticulitis: Plan: CT a/p on 07/11 showed "acute diverticulitis of the sigmoid flexure through sigmoid colon without evidence of perforation or abscess." Stool testing on 07/10 was negative. Per , her last episode was ~5 years ago, but took "months" to resolve. Had hypovolemic shock during acute illness. - Continue ceftriaxone & metronidazole - Advance diet as able -> Advanced to full liquids for breakfast on 07/15, then soft diet for lunch. HOWEVER, when asked directly, she actually only ate jello for each meal. Long discussion with . In 2011, she was admitted several times at [facility] then spent 5 days at [facility] for similar symptoms (mostly mild, vague abdomen pain and loss of appetite). Eventually, he took her home, and she does ok with a mixture of protein shakes, soups, and other soft foods. His concern is that this will not improve given her history. We did agree to give it 24 more hours. (2) Hypoxemia: Plan: No prior home O2. Patient was on low-level O2 after surgery, but this was presumed to be due to post-op atelectasis. CTA chest was done on 07/11 at the time of her hypotensive episode and was negative. Showed some possible elevated right heart pressures/pulmonary arterial hypertension. However, TTE on 07/11 showed EF 55-60% and no increased RV pressures. - Present ddx would be atelectasis from surgery and illness, iatrogenic pulmonary edema from her IV fluids during her illness, - BNP ordered - pending - Repeat 2v CXR to check for continued pulmonary edema, pleural effusion, etc. (3) Anemia: Plan: Baseline hgb is normal ~15. Dropped to 11.3 after surgery, and has gone as low as 8.3. Macrocytic. B12/folate normal. - Likely expected acute blood loss anemia from surgery - Hgb presently 9.3. Will defer IV iron at this time given infection. (4) Atrial fibrillation with rapid ventricular response: Plan: Went into afib with RVR on 07/11. Total time in afib seems to be 7 hours (in around 2am, out by 9am). Echo showed EF 55 - 60% and otherwise normal. - Presently in sinus with HR in the 90s. No recurrence of afib. - Hold full anticoagulation given anemia and recent TAJ. (5) Status post left hip replacement: Plan: S/p TAJ with Dr. Kumar on 07/07/2021. Doing well from that perspective. No major concerns per Dr. Kumar, and site looks stable without bruising or hematoma noted. - Can consider IV iron to help replenish iron stores if hgb stable. (6) Syncope: Plan: Likely vasovagal from micturition, dehydration, and hypovolemia. Had classic prodrome symptoms of flushing and lightheadedness prior to syncope and no confusion afterward. - MRI brain done after episode with no indication of CVA. (7) Diarrhea: Plan: Large volume and frequency of stools on 07/10. C. diff & stool testing was negative on 07/10. - Hold standing stool softeners. - No recent BMs (since 07/12) (8) Rose's palsy: Plan: Long-standing history. Possibly mildly worsened from syncopal episode, stress from anesthesia, and hypovolemia. - Monitor (9) Hypertension: Plan: In notes as history of. Not presently on any medications for it. BP stable presently at 145/70. - As above (10) Anxiety: Plan: Recent admission for abrupt withdrawal of her medications. Now undertaking slow taper with PCP. - Continue home venlafaxine and Ativan (11) DVT prophylaxis: Plan: Lovenox 40 mg SQ daily Admission and Anticipated Discharge Date Admission Date: July 11, 2021 Subjective Sadly, no great change today. She said she was feeling better, and we advanced her diet, but when asked what she ate for breakfast and lunch, she reports it was just jello. She does not have a lot of abdominal pain though. Still no longer having diarrhea (or any BMs), but also not really passing gas. Reports no fevers/chills, chest pain, shortness of breath, abdominal pain, nausea, or vomiting. Physical Exam Constitutional: WD/WN, vitals as above Eyes: EOM intact bilaterally; no conjunctival abnormality ENMT: external ear and nose normal, oropharynx normal Neck: trachea midline, no thyromegaly normal visual inspection Respiratory: normal respiratory effort, lungs clear to auscultation no respiratory distress Cardiovascular: RRR, no murmur, no edema Gastrointestinal (Abdomen): Inspection/Auscultation: abdomen normal to inspection; abdomen not distended Percussion/Palpation: abdomen soft; abdomen nontender, no guarding and abdomen not rigid Musculoskeletal: no cyanosis or clubbing, extremities motor strength 5/5 (Did not test LLE due to prior surgery, but otherwise good strength) Hip: + hip abnormal to inpsection (Left hip with bandaging. Mild bruising. No hematoma. No tenderness noted.) and + surgical incision Skin: no rashes, warm and dry Neurologic: moves all extremities and awake Speech / Cognition: + abnormal speech; normal cognition Psychiatric: Orientation: alert, oriented to person and cooperative Results & Data Results & Data ([facility]) Vital Signs (Past 12 Hours) Vital Signs Temp Pulse Pulse Pulse Pulse Pulse Pulse 07/15/21 12:53 88 85 105 H 99 H 07/15/21 11:03 74 07/15/21 07:45 37.0 C 76 07/15/21 06:55 75 07/15/21 02:46 36.6 C 79 Pulse Resp Resp Resp Resp Resp Resp 07/15/21 12:53 85 20 20 22 20 20 07/15/21 11:03 16 07/15/21 07:45 16 07/15/21 06:55 07/15/21 02:46 18 BP Pulse Ox Pulse Ox Pulse Ox Pulse Ox Pulse Ox Pulse Ox 07/15/21 12:53 86 L 95 95 96 84 L 07/15/21 11:03 144/63 H 94 07/15/21 07:45 119/52 L 98 07/15/21 06:55 07/15/21 02:46 122/59 L 92 PG Care Time/CCT Total # of Minutes Spent Total Time Spent with Patient: Total time spent is greater than 50% in coordination of care (as documented) at patient's floor/unit and/or counseling patient: Coding Level of Care Code 82452 Subseq Hosp Care Lvl 3 Diagnoses Diverticulitis K57.92 Anemia D64.9 Atrial fibrillation with rapid ventricular response I48.91 Status post left hip replacement Z96.642 Syncope R55 Diarrhea R19.7 Rose's palsy G51.0 Hypertension I10 Anxiety F41.9 DVT prophylaxis Z29.9 Hypoxemia R09.02
[2021-07-15] MEDS ORDERED: FUROSEMIDE INJ 20 MG/2 ML VIAL IV ONE (15:54)
--- NOTE | 2021-07-15 16:02 | XRay Report ---
XR chest 2V PA/lateral CLINICAL HISTORY: Hypoxemia COMPARISON STUDY: Chest radiograph July 10, 2021. Chest CT July 11, 2021. FINDINGS: Cardiac size is within normal limits. There is no pneumothorax. Small bilateral pleural eff usions have developed. There is associated hazy bibasilar opacities. There is interstitial thickening with suspected mild pulmonary edema. Old L1 compression deformity is incidentally noted on lateral p rojection. IMPRESSION: Mild interstitial pulmonary edema with interval development of small bilateral pleural e ffusions and associated bibasilar opacities which could reflect atelectasis or consolidation. ACT 112: Negative or not required by law. Electronically signed by: Williams Roca M.D. 07/15/2021 4:01 PM
[2021-07-15] MEDS: ONDANSETRON INJ 2 MG/ML 2 ML VIAL IV PRN (16:22)
[2021-07-16] MEDS: metroNIDAZOLE 500 MG/100 ML BAG IV SCH ×3 (03:16→20:16)
[2021-07-16] MEDS: ACETAMINOPHEN 325 MG TAB PO PRN ×3 (05:47→22:57)
[2021-07-16 06:42] LABS: Hematocrit (blood only) 29.8 % (37-47); Hemoglobin 10.2 g/dL (12.0-16.0); Mean Corpuscular Hemoglobin 34.2 pg (25-34); Mean Corpuscular Hgb Conc 34.2 g/dL (32-36); Platelet Count 329 K/uL (130-400); RDW Coefficient of Variation 13.4 % (11.5-14.5); RDW Standard Deviation 48.9 fL (36.4-46.3); Red Blood Count 2.98 M/uL (4.2-5.4); White Blood Count 9.75 K/uL (4.8-10.8)
[2021-07-16 07:01] LABS: BUN Creatinine Ratio 13.1 (10-20); Calcium 8.2 mg/dl (8.5-10.1); Creatinine Clr Calc Pharmacy 65.1 ml/min; Est GFR (African American) 98.5 ml/min
[2021-07-16] MEDS: ENOXAPARIN INJ 40 MG/0.4 ML SYR SQ SCH (07:29)
[2021-07-16] MEDS: MULTIVITAMIN TAB PO SCH (07:30)
[2021-07-16] MEDS: VENLAFAXINE HCL XR 150 MG CAPXR PO SCH (07:30)
[2021-07-16] MEDS: ONDANSETRON INJ 2 MG/ML 2 ML VIAL IV PRN (07:30)
[2021-07-16] MEDS: LORazepam 0.5 MG TAB PO SCH (07:30)
--- NOTE | 2021-07-16 08:16 | Orthopedic Progress Note ---
Date of Service July 16, 2021 Assessment & Plan (1) Status post left hip replacement: She is still feeling tired and has been slow to progress with therapy. She is still receiving care from the hospitalist group with regards to her diet and bowel movements. The hospitalist had a discussion with her yesterday and he stated that this is not the first time this has happened. She is orthopedically stable for discharge when medically ready. She can be weightbearing as tolerated on her left hip. We will continue ceftriaxone and Flagyl for her diverticulitis and Lovenox 40 mg for anticoagulation. Erin Lockhart was seen and examined at bedside this morning. Overall she says she is feeling tired. She has not had a recent bowel movements. She is only been eating a limited soft diet including Jell-O. She has been working some with physical therapy. She feels she would like to return home but she is still fairly tired. She has no new complaints. Review of Systems All systems reviewed & are unremarkable except as noted in HPI & below. Physical Exam On physical examination of the left hip, the Silverlon dressing is clean and dry. Her leg lengths are equal. She has active dorsiflexion plantarflexion of her left ankle.. Results & Data Results & Data Laboratory Results . Diagnostic Findings . PG Care Time/CCT Total # of Minutes Spent Total Time Spent with Patient: Total time spent is greater than 50% in coordination of care (as documented) at patient's floor/unit and/or counseling patient: Coding Level of Care Code 07887 Post Operative Follow-Up Diagnoses Status post left hip replacement Z96.642
[2021-07-16] MEDS ORDERED: MAGNESIUM SULFATE / D5W 1 GM/100 ML BAG IV ONE (08:33)
--- NOTE | 2021-07-16 08:33 | Hospitalist Progress Note ---
Date of Service July 16, 2021 Assessment & Plan (1) Diverticulitis: Plan: CT a/p on 07/11 showed "acute diverticulitis of the sigmoid flexure through sigmoid colon without evidence of perforation or abscess." Stool testing on 07/10 was negative. Per , her last episode was ~5 years ago, but took "months" to resolve. Had hypovolemic shock during acute illness. - Continue ceftriaxone & metronidazole - pt is now encouraged to eat on 07/16/21 no lwukocytosis and limited pain on exam (2) Hypoxemia: Plan: No prior home O2. Patient was on low-level O2 after surgery, but this was presumed to be due to post-op atelectasis. CTA chest was done on 07/11 at the time of her hypotensive episode and was negative. Showed some possible elevated right heart pressures/pulmonary arterial hypertension. However, TTE on 07/11 showed EF 55-60% and no increased RV pressures. - Present ddx would be atelectasis from surgery and illness, iatrogenic pulmonary edema from her IV fluids during her illness, - BNP elevated Echo suggests elevated Right heart pressures, CXR suggests HFpEF perhaps related to afib RVR -one additional dose of lasix given 07/16/21, augment hypokalemia also (3) Anemia: Plan: Baseline hgb is normal ~15. Dropped to 11.3 after surgery, and has gone as low as 8.3. Macrocytic. B12/folate normal. - Likely expected acute blood loss anemia from surgery - Hgb presently 10.2. (4) Atrial fibrillation with rapid ventricular response: Plan: Went into afib with RVR on 07/11. Total time in afib seems to be 7 hours (in around 2am, out by 9am). Echo showed EF 55 - 60% and otherwise normal. - Presently in sinus with HR in the 90s. No recurrence of afib. - Hold full anticoagulation given anemia and recent TAJ. (5) Status post left hip replacement: Plan: S/p TAJ with Dr. Kumar on 07/07/2021. Doing well from that perspective. No major concerns per Dr. Kumar, and site looks stable without bruising or hematoma noted. (6) Syncope: Plan: Likely vasovagal from micturition, dehydration, and hypovolemia. Had classic prodrome symptoms of flushing and lightheadedness prior to syncope and no confusion afterward. - MRI brain done after episode with no indication of CVA. (7) Diarrhea: Plan: Large volume and frequency of stools on 07/10. C. diff & stool testing was negative on 07/10. - Hold standing stool softeners. - No recent BMs (since 07/12) (8) Rose's palsy: Plan: Long-standing history. Possibly mildly worsened from syncopal episode, stress from anesthesia, and hypovolemia. - Monitor (9) Hypertension: Plan: In notes as history of. Not presently on any medications for it. BP stable presently at 145/70. - As above (10) Anxiety: Plan: Recent admission for abrupt withdrawal of her medications. Now undertaking slow taper with PCP. - Continue home venlafaxine and Ativan (11) DVT prophylaxis: Plan: Lovenox 40 mg SQ daily Admission and Anticipated Discharge Date Admission Date: July 11, 2021 Subjective pt is enouraged today, trying to eat peaches in the room, is at bedside, no distress, hip pain is well controlled, sob improved after diuresis Review of Systems Review of Systems: Mild distress and fatigue no headache, no visual changes no speech or swallowing issues no chest pain, pressure or palpitations no shortness of breath, cough or wheezes no abdominal pain, nausea or vomiting, diarrhea or constipation no dysuria, hematuria or frequency typical post op hip pain no back pain, CVA tenderness or radicular pain no bruising, bleeding or rashes no focal signs of weakness or numbness or altered sensation no complaints of anxiety or depression.. Physical Exam Physical Exam: The patient appeared well nourished and normally developed. Vital signs as documented. Head exam is normocephalic atraumatic Neck is without JVD, thyromegaly, or carotid bruits. Lungs are clear to auscultation, no focal loss of breath sounds Cardiac exam, Rhythm is regular.. No murmurs, rubs or gallops. Abdominal exam reveals normal bowel sounds, soft mild LLQ pain Extremities are nonedematous and both pedal pulses are present Neurologic exam is alert and oriented, no focal loss of strength or sensation hip wound inspected, clean dry and intact Psychologically is without concerns for anxiety or depression.. Results & Data Results & Data ([facility]) Vital Signs (Past 12 Hours) Vital Signs Temp Pulse Pulse Resp BP Pulse Ox 07/16/21 08:20 98.2 F 82 18 111/58 L 95 07/16/21 07:12 73 07/16/21 03:38 97.9 F 93 H 18 134/65 92 07/15/21 23:24 97.9 F 87 18 127/68 98 07/15/21 23:06 86 PG Care Time/CCT Total # of Minutes Spent Total Time Spent with Patient: Total time spent is greater than 50% in coordination of care (as documented) at patient's floor/unit and/or counseling patient: Coding Level of Care Code 84194 Subseq Hosp Care Lvl 2 Diagnoses Diverticulitis K57.92 Hypoxemia R09.02 Anemia D64.9 Atrial fibrillation with rapid ventricular response I48.91 Status post left hip replacement Z96.642 Syncope R55 Diarrhea R19.7 Rose's palsy G51.0 Hypertension I10 Anxiety F41.9 DVT prophylaxis Z29.9
[2021-07-16] MEDS ORDERED: POTASSIUM CHLORIDE CRTAB 20 MEQ TABCR PO SCH (09:00)
[2021-07-16] MEDS ORDERED: Nursing to Pharmacy Communication SCH (09:00)
[2021-07-16] MEDS: POTASSIUM CHLORIDE 10 MEQ / 100ML WTR IV SCH ×3 (09:26→11:25)
[2021-07-16] MEDS: POTASSIUM CHLORIDE 20 MEQ/15 ML UDC PO SCH ×2 (09:27→20:23)
[2021-07-16] MEDS: cefTRIAXone SODIUM 1,000 MG in DEXTROSE 5% 50 ML IV SCH (11:25)
[2021-07-17] MEDS: oxyCODONE HCL IR 5 MG TAB (IMMEDIATE RELEASE) PO PRN (01:23)
[2021-07-17] MEDS: metroNIDAZOLE 500 MG/100 ML BAG IV SCH ×2 (04:16→12:17)
[2021-07-17 07:02] LABS: BUN Creatinine Ratio 15.8 (10-20); Calcium 8.2 mg/dl (8.5-10.1); Creatinine Clr Calc Pharmacy 69.7 ml/min; Est GFR (African American) 100.8 ml/min; Est GFR (Non-African American) 86.9 ml/min; Magnesium 1.8 mg/dl (1.7-2.4); Potassium 3.6 mmol/L (3.5-5.1)
[2021-07-17 07:39] VITALS: TEMP 98.1
--- NOTE | 2021-07-17 07:50 | Orthopedic Progress Note ---
Date of Service July 17, 2021 Assessment & Plan (1) Status post left hip replacement: She is having some pain in her left hip and she has been slow to ambulate with physical therapy. She examines well and I do not think there is any problems with the hip itself. She has not been eating well. She is still on ceftriaxone and Flagyl for her diverticulitis. She is on Lovenox 40 mg daily for antimicrobial prophylaxis due to her general inactivity. She will likely need discharge to a rehab facility. Erin Lockhart was seen and examined at bedside this morning. She is not getting any worse but she is not improving much. She is still fairly fatigued. She has been working with physical therapy but has been very slow to ambulate. She had no acute events overnight. Review of Systems All systems reviewed & are unremarkable except as noted in HPI & below. Physical Exam On physical examination of the left hip, the incision looks good. The leg lengths are equal. She has active motion of her left ankle. Results & Data Results & Data Laboratory Results . Diagnostic Findings . PG Care Time/CCT Total # of Minutes Spent Total Time Spent with Patient: Total time spent is greater than 50% in coordination of care (as documented) at patient's floor/unit and/or counseling patient: Coding Level of Care Code 94079 Post Operative Follow-Up Diagnoses Status post left hip replacement Z96.642
[2021-07-17] MEDS: ACETAMINOPHEN 325 MG TAB PO PRN (09:47)
[2021-07-17] MEDS: ENOXAPARIN INJ 40 MG/0.4 ML SYR SQ SCH (09:48)
[2021-07-17] MEDS: VENLAFAXINE HCL XR 150 MG CAPXR PO SCH (09:48)
[2021-07-17] MEDS: MULTIVITAMIN TAB PO SCH (09:48)
[2021-07-17] MEDS: LORazepam 0.5 MG TAB PO SCH (09:48)
[2021-07-17] MEDS: POTASSIUM CHLORIDE 20 MEQ/15 ML UDC PO SCH (09:57)
[2021-07-17 11:31] VITALS: PULSE 83; O2SAT 100
[2021-07-17] MEDS: cefTRIAXone SODIUM 1,000 MG in DEXTROSE 5% 50 ML IV SCH (11:34)
--- NOTE | 2021-07-17 12:51 | Discharge Summary ---
Date of Service July 17, 2021 Principal Diagnosis diverticulitis acute blood loss anemia Atrial Fibrillation- no AC left TAJ Discharge Exam Patient has a baseline Rose's palsy with facial drooping. Otherwise she is stable her wound is clean dry intact familia are in place and will need to be removed as an outpatient. Abdomen is not acute she is soft there is no rebound or guarding bowel sounds are normal Discharge Data Allergies Allergy/AdvReac Type Severity Reaction Status Date / Time hydrocodone Allergy Intermediate Itching Verified 07/08/21 08:02 codeine Allergy Mild Rash Verified 07/08/21 08:02 baclofen Allergy Unknown CAN'T Verified 07/08/21 08:02 REMEMBER fentanyl [From Duragesic] Allergy Unknown CAN'T Verified 07/08/21 08:02 REMEMBER gabapentin Allergy Unknown CAN'T Verified 07/08/21 08:02 REMEMBER hydromorphone AdvReac Intermediate N/V Verified 07/08/21 08:02 oxycodone AdvReac Intermediate Nausea, Verified 07/08/21 08:02 vertigo phenytoin AdvReac Intermediate Vertigo Verified 07/08/21 08:02 Consultations 07/10/21 08:01 Consult Hospitalist Routine 07/11/21 02:49 Consult Administrative Hearing Officer Routine 07/11/21 13:59 Consult Administrative Hearing Officer Routine Procedures Performed Operation Date: 07/08/21 09:30 Actual Procedures p Left Anterior Total Hip Arthroplasty, Uncemented(Left) - Lloyd Kumar, Ordered Studies 07/08/21 09:30 FL hip LT 1V Routine 07/10/21 08:17 MR brain wo con Stat 07/11/21 05:22 CT abd pelvis IV con only Stat 07/11/21 06:06 CT angio chest PE protocol Stat Hospital Course (1) Diverticulitis: CT a/p on 07/11 showed "acute diverticulitis of the sigmoid flexure through sigmoid colon without evidence of perforation or abscess." Stool testing on 07/10 was negative. Per , her last episode was ~5 years ago, but took "months" to resolve. Had hypovolemic shock during acute illness. Be discharged on Augmentin feels he can more accommodate her special eating needs at home (2) Hypoxemia: No prior home O2. Patient was on low-level O2 after surgery, but this was presumed to be due to post-op atelectasis. CTA chest was done on 07/11 at the time of her hypotensive episode and was negative. Showed some possible elevated right heart pressures/pulmonary arterial hypertension. However, TTE on 07/11 showed EF 55-60% and no increased RV pressures. - Present ddx would be atelectasis from surgery and illness, iatrogenic pulmonary edema from her IV fluids during her illness, - BNP elevated Echo suggests elevated Right heart pressures, CXR suggests HFpEF perhaps related to afib RVR -one additional dose of lasix given 07/16/21, augment hypokalemia also on oxygen for further testing as an outpatient (3) Anemia: Baseline hgb is normal ~15. Dropped to 11.3 after surgery, and has gone as low as 8.3. Macrocytic. B12/folate normal. - Likely expected acute blood loss anemia from surgery - Hgb presently 10.2. (4) Atrial fibrillation with rapid ventricular response: Went into afib with RVR on 07/11. Total time in afib seems to be 7 hours (in around 2am, out by 9am). Echo showed EF 55 - 60% and otherwise normal. - Presently in sinus with HR in the 90s. No recurrence of afib. - Hold full anticoagulation given anemia and recent TAJ. If atrial fibrillation persists discovery in the office could consider chronic anticoagulation once she recovers from her hip surgery (5) Status post left hip replacement: S/p TAJ with Dr. Kumar on 07/07/2021. Doing well from that perspective. No major concerns per Dr. Kumar, and site looks stable without bruising or hematoma noted. [place] will need to be removed in the office (6) Syncope: Likely vasovagal from micturition, dehydration, and hypovolemia. Had classic prodrome symptoms of flushing and lightheadedness prior to syncope and no confusion afterward. - MRI brain done after episode with no indication of CVA. (7) Diarrhea: Large volume and frequency of stools on 07/10. C. diff & stool testing was negative on 07/10. - Hold standing stool softeners. - No recent BMs (since 07/12) (8) Rose's palsy: Long-standing history. Possibly mildly worsened from syncopal episode, stress from anesthesia, and hypovolemia. (9) Hypertension: In notes as history of. Not presently on any medications for it. BP stable presently at 145/70. - As above (10) Anxiety: Recent admission for abrupt withdrawal of her medications. Now undertaking slow taper with PCP. - Continue home venlafaxine and Ativan (11) DVT prophylaxis: aspirin bid Total Time Total Time Spent Total Time Spent (In Minutes): It required greater than 30 minutes to prepare this patient for discharge Discharge Plan Discharge Items Patient Disposition: Home - Home Health Services Reason For Visit: DJD Left Hip Discharge Diagnosis: Left hip replacement Diverticulitis Activity: Per Instructions section Non-emergency contact: Surgeon Call non-emergency contact if: your wound has increased redness and your wound has increased drainage Follow-up/Referrals: Manish Estrada MD [Primary Care Provider] - Diet: Regular Addtl Attending Provider Instructions: For your diverticulitis: - Take the Augmentin until it is gone. Your next dose is tomorrow morning (Sunday morning), then twice a day until it is gone. - Slowly reincorporate foods into your diet as you make sure it sits on your stomach well. For your hip: Activity and Therapy Recommendations: * If you are using [facility] then therapy will be provided at your home until they feel you have accomplished all of your goals. * If you are using [facility] then Physical Therapy will be provided until they feel you are ready to start Outpatient Physical Therapy. * If you are not using home therapy then Outpatient Physical Therapy should start about 3-5 days from your day of surgery. Therapy will last about 6-10 weeks * You were shown a series of exercises in the hospital. Do these exercises three times each day including the exercises you were shown in physical therapy. * Get up and walk several times each day.~ For the first four weeks, try not to stand or walk for more than one hour at a time. If you do stand or walk for more than one hour, you will not hurt anything, but your leg will likely swell.~~ * As you feel comfortable, you may change from the walker or crutches to a cane and~then to independent walking. Medications: * Narcotic You will likely be sent home from the hospital with a prescription for the narcotic pain medication that worked best throughout your stay. * Aspirin Most patients will be required to take Aspirin 81mg twice a day for 6 weeks after surgery. This is obtained [id number] and a prescription is not necessary. * Other medications may be prescribed for specific circumstances. If you have any questions, please call the office at . * Resume previous home medications unless otherwise instructed TEDs/Elastic Stockings: The white elastic stockings help limit swelling and prevent blood clots from forming in your legs. The more you wear them, the more they work. Wear them for six weeks. Dressing Care: Leave the Silverlon dressing in place for 7 days. After 7 days you may remove the dressing. If the incision is not draining then you may leave the familia open to air. If there is a little bit of drainage or if the familia are getting stuck on your clothing then cover the incision with a dry dressing. The familia will be removed at your 2 week follow-up appointment. Showering: You may shower with the Silverlon dressing in place. Do not let the shower spray hit the dressing directly. Pat the Silver[place] dressing dry. If the dressing becomes wet underneath, then simply remove the dressing. Keep the incision dry until you are 7 days out from the day of surgery. After 7 days you may remove the Silverlon dressing and shower with the familia exposed. Let soapy water run over the familia and pat them dry. Do not scrub or soak the incision. Things To Watch For: * Drainage from the incision site that occurs more than one week after your surgery. * Increased redness at the incision site. * Fever above 102 degrees Fahrenheit. * Unusual chest pain or shortness of breath. * Call [facility] at with any of the above problems Follow-Up Visit: Follow-up with Dr. Kumar's PA (Lloyd Venegas) 2-3 weeks after your day of surgery. He will remove your familia and answer any questions. If you have any additional questions or concerns, Dr Kumar is usually in the office at the same time and will be available An appointment was probably scheduled when you signed-up for surgery in the office. If you have any questions call Office Instructions: More detailed instructions as well as Frequently Asked Questions were provided in a folder by our office when you signed-up for surgery. Please review these instructions when you get home. If you have any further questions or concerns, please feel free to call the office at [phone] Pending Studies at Discharge: No Stand-Alone Forms: My [facility], Smoking Cessation Medications and DC Order Prescriptions: New aspirin 81 mg Tablet,Delayed Release (Dr/Ec) 81 mg PO BID Qty: 84 RF: 0 tramadol 50 mg tablet 50 mg PO Q6H PRN (Reason: pain) Qty: 30 RF: 0 Senokot Extra Strength 17.2 mg tablet 17.2 mg PO HS PRN (Reason: constipation) Qty: 14 RF: 0 amoxicillin-pot clavulanate 875-125 mg tablet 1 tab PO BID Qty: 6 RF: 0 Continued multivitamin [Daily Multi-Vitamin] tablet 1 tab PO QAM RF: 0 venlafaxine 150 mg capsule,extended release 24hr 150 mg PO QAM RF: 0 lorazepam 0.5 mg tablet 0.25 - 0.5 mg PO QAM Qty: 30 RF: 0 coQ10 (ubiquinol) 100 mg Capsule 100 mg PO QAM RF: 0 omega-3 fatty acids 1,000 mg Capsule 1,000 mg PO QAM RF: 0 Discharge Orders: Discharge Order (Routine); Ordered 07/17/21 Ordered By: Judah Cedillo Admission Data Admit Date/Time: 07/11/21 13:59 Attending Provider: Judah Cedillo Admit Provider: Brian Bellamy Primary Care Provider: Manish Estrada Other Providers: Yousif Painting ; Lloyd Weinberg ; Judah Cedillo Coding Level of Care Code D/C DAY MANAGEMENT >30 MINS Diagnoses Diverticulitis K57.92 Hypoxemia R09.02 Anemia D64.9 Atrial fibrillation with rapid ventricular response I48.91 Status post left hip replacement Z96.642 Syncope R55 Diarrhea R19.7 Rose's palsy G51.0 Hypertension I10 Anxiety F41.9 DVT prophylaxis Z29.9
[2021-07-17 12:59] VITALS: BP 163/86
== END 2021-07-17 14:50 | disposition home health service (06) | DRG 469 ==
LOC: 3E 07:27 → ASU 07:27 → SUATTDRO 10:42 → 2N 07-10 20:21 → 1E 07-11 03:39 → SUATTDRO 07-11 13:59 → 2E 07-12 18:17

== ENCOUNTER 2024-05-07 08:30 | Observation (INO) ==
--- NOTE | 2024-05-05 12:34 | Anesthesiology Consultation ---
Date of Service May 05, 2024 Assessment & Plan (1) Encounter for pre-operative examination: Chart Review Chart Review: Acceptable Risk for Surgery and Patient NOT seen in Pre Admission Testing -Pt seen by PCP 04/17/24 for surgeon-ordered preop clearance. Per note, 'she has a completed 12 lead EKG from November 2023. She still needs to have preop blood work and chest xray completed and she is aware. Medical clearance pending review of preop labs and chest xray." Addendum to note dated 04/30/24: "Reviewed preop lab results and chest xray which are acceptable. Patient is medically optimized and right breast mastectomy may proceed as scheduled." Infectious Disease screening: Per PAT nursing assessment on 05/05/24, No known infectious disease contacts in past 10 days or current infectious disease symptoms. No recent travel outside the country. History Surgery Operation Date: 05/07/24 09:20 Proposed Procedures p Right Breast Mastectomy with [place] Lymph Node Biopsy - Berto Baldwin, , FACS Height/Weight Height: 5 ft 5 in Weight: 63.503 kg Allergies Allergy/AdvReac Type Severity Reaction Status Date / Time hydrocodone Allergy Intermediate Itching Verified 05/05/24 11:24 codeine Allergy Mild Rash Verified 05/05/24 11:24 baclofen Allergy Unknown CAN'T Verified 05/05/24 11:24 REMEMBER fentanyl [From Duragesic] Allergy Unknown CAN'T Verified 05/05/24 11:24 REMEMBER gabapentin Allergy Unknown CAN'T Verified 05/05/24 11:24 REMEMBER hydromorphone AdvReac Intermediate N/V Verified 05/05/24 11:24 oxycodone AdvReac Intermediate Nausea, Verified 05/05/24 11:24 vertigo phenytoin AdvReac Intermediate Vertigo Verified 05/05/24 11:24 Medications Home Medications Medication Instructions Recorded Confirmed Last Taken multivitamin (Daily Multi-Vitamin 1 tab PO QAM 12/17/18 05/05/24 07/07/21 08:00 tablet) venlafaxine 150 mg 150 mg PO QAM 12/17/18 05/05/24 07/08/21 07:00 capsule,extended release 24 hr coQ10 (ubiquinol) 100 mg capsule 100 mg PO QAM 12/16/20 05/05/24 07/07/21 08:00 omega-3 fatty acids 1,000 mg 1,000 mg PO QAM 06/22/21 05/05/24 07/07/21 08:00 capsule aspirin 81 mg tablet,delayed 81 mg PO BID #84 tabs 07/10/21 05/05/24 Unknown release amoxicillin 500 mg tablet 2,000 mg (4 x 500 mg) PO ONCE PRN 08/03/21 05/05/24 Unknown prophylaxis #4 tabs Past Medical History Medical History (Updated 05/05/24 @ 12:28 by Shruthi Menezes PA-C) Anemia Anxiety Back problem pain Depression Fibromyalgia History of atrial fibrillation Afib with RVR after hip surgery 2021; converted to NSR spontaneously after a few hours; no recurrence History of diverticulitis History of hypertension no meds currently; 'controlled by diet and exercise' per pcp History of seizures as a child At age 11 Hx of Rose's palsy HX LEFT SIDE 2008 -DROOPS SLIGHTLY Hx of Clostridium difficile infection noted in 2014, but pt unaware Hyperlipidemia 'controlled by diet and exercise' per pcp 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 Osteoarthritis Paroxysmal atrial tachycardia resolved per pt Past Family History Family History Father Diverticulitis Colorectal cancer Mother Herpes zoster infection Sister Sinus symptom Denies family history of Ovarian cancer Prostate cancer Myocardial infarction Breast cancer Lung cancer Stroke Past Surgical History Surgical History History of colonoscopy History of hip replacement Right 2011 Left 2021 History of squamous cell carcinoma excision Hx of squamous cell carcinoma excision S/P brain surgery Removal of meningioma (2005) S/P cholecystectomy S/P knee surgery Right 1966 S/P tonsillectomy Status post left hip replacement (~07/2021) Social History Smoking Status: Never smoker tobacco type: cigarettes Do You Dip or Chew Tobacco: No Hx Alcohol Use: Yes Alcohol type: wine alcohol intake frequency: a few times a month Hx Substance Use: No substance use type: does not use Lab Results Anesthesia Preop Results Results Anesthesia Widget: WBC 7.91 K/ul (4.8-10.8) 04/29/24 Hgb 14.5 g/dl (12.0-16.0) 04/29/24 Hct 43.3 % (37.0-47.0) 04/29/24 Plt 312 K/uL (130-400) 04/29/24 Na 139 mmol/L (136-145) 04/29/24 K 3.8 mmol/L (3.5-5.1) 04/29/24 Cl 104 mmol/L (98-107) 04/29/24 CO2 25 mmol/L (21-32) 04/29/24 BUN 24 mg/dl (6-23) H 04/29/24 Creat 0.92 mg/dl (0.6-1.2) 04/29/24 Glucose Level 118 mg/dl (70-99(Fasting)) H 04/29/24 Testing Electrocardiogram Date: 11/14/23 SR with marked sinus arrhythmia, rate: 84bpm. Possible LAE. No significant change from 12/21/20 Chest X-Ray Date: 04/29/24 Findings: + NAD Echocardiogram Date: 07/11/21 EF: 55-60% LV Function: normal RWMA: + none mild TR.
--- NOTE | 2024-05-06 15:39 | Nuclear Medicine Report ---
IR sentinel node w breast img CLINICAL HISTORY: right breast cancer COMPARISON STUDY: None. RADIOPHARMACEUTICAL ADMINISTERED: 515.77 uCi technetium 99 M. Lymphoseek. FINDINGS: The radiopharmaceutical was administered subdermally in 5 parts around the right nipple. Ac tivity migrated to a small focus at the right axilla consistent with sentinel lymph node. IMPRESSION: [place] lymph node at the right axilla. ACT 112: Negative or not required by law. Electronically signed by: Berto Abad M.D. 05/06/2024 3:37 PM
--- NOTE | 2024-05-06 17:22 | History & Physical Report ---
Date of Service May 06, 2024 Assessment & Plan (1) Invasive lobular carcinoma of right breast in female: Plan: 83y/o female with right breast invasive lobular carcinoma, Grade 2, ER +, AZ +, [id number] negative sign, Ki67 10.2%. On imaging the tumor may be as large as 5.2 cm with spiculations. We discussed the nature of invasive lobular carcinoma and the difficulty in obtaining negative margins. No current indication for MRI after discussion with the breast radiologist. After discussion at our multidisciplinary tumor board, recommend proceeding with surgery without any neoadjuvant therapy. Did recommend mastectomy given the nipple retraction and closest of the tumor to the skin of the nipple. Patient is agreeable to this. Discussed possibility of contralateral prophylactic mastectomy, she does not desire this at this time. Plan for right breast mastectomy with sentinel lymph node biopsy risks discussed to include but not limited to bleeding, infection, positive margins, recurrence, damage to surrounding structures, seroma/hematoma, need for future or more extensive surgery, and risks of anesthesia return precautions given, call with questions or concerns preop risk assessment from PCP completed (2) Hypertension: (3) Rose's palsy: (4) Atrial fibrillation with rapid ventricular response: History of Present Illness Primary Care Provider: Manish Estrada MD Here for follow-up and to schedule surgery. Initially referred for newly diagnosed right breast cancer. She noticed a lump and some nipple retraction in her right breast with some tenderness few weeks ago. She underwent imaging which was suspicious for malignancy. A biopsy was performed and showed invasive lobular carcinoma. She had had no prior imaging since 2014. She does not have any nipple drainage. No family history of breast cancer. No prior biopsies. No suspicious lesions on the left. She did have an ultrasound of the right axilla which showed no axillary lymphadenopathy. Pathology showed invasive lobular carcinoma, intermediate grade, ER/AZ positive, HER2/amado negative, Ki-67 10.2%. She is otherwise relatively healthy, takes a baby aspirin but no other blood thinners. 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 Since her last visit she has been discussed with the breast radiologist as well as the tumor board. No MRI is recommended. Also, no neoadjuvant therapy is recommended at this time. Of note, due to the closeness of the tumor to the nipple and to the retraction, the breast radiologist feels she is a poor candidate for nipple sparing or breast conservation. no changes since last visit. Allergies Allergy/AdvReac Type Severity Reaction Status Date / Time hydrocodone Allergy Intermediate Itching Verified 05/05/24 11:24 codeine Allergy Mild Rash Verified 05/05/24 11:24 baclofen Allergy Unknown CAN'T Verified 05/05/24 11:24 REMEMBER fentanyl [From Duragesic] Allergy Unknown CAN'T Verified 05/05/24 11:24 REMEMBER gabapentin Allergy Unknown CAN'T Verified 05/05/24 11:24 REMEMBER hydromorphone AdvReac Intermediate N/V Verified 05/05/24 11:24 oxycodone AdvReac Intermediate Nausea, Verified 05/05/24 11:24 vertigo phenytoin AdvReac Intermediate Vertigo Verified 05/05/24 11:24 Home Medications Medication Instructions Recorded Confirmed Type multivitamin (Daily Multi-Vitamin 1 tab PO QAM 12/17/18 05/05/24 History tablet) venlafaxine 150 mg 150 mg PO QAM 12/17/18 05/05/24 History capsule,extended release 24 hr coQ10 (ubiquinol) 100 mg capsule 100 mg PO QAM 12/16/20 05/05/24 History omega-3 fatty acids 1,000 mg 1,000 mg PO QAM 06/22/21 05/05/24 History capsule aspirin 81 mg tablet,delayed 81 mg PO BID #84 tabs 07/10/21 05/05/24 Rx release amoxicillin 500 mg tablet 2,000 mg (4 x 500 mg) PO ONCE PRN 08/03/21 05/05/24 Rx prophylaxis #4 tabs Past Med/Surg History Problem List (Updated 05/05/24 @ 13:14 by Shruthi Menezes PA-C) Invasive lobular carcinoma of right breast in female Arthritis Hypoxemia after hip surgery 2021; possibly 2/2 atelectasis; resolved prior to D/C Anemia Diverticulitis Atrial fibrillation with rapid ventricular response Afib with RVR after hip surgery 2021; converted to NSR spontaneously after a few hours; no recurrence DVT prophylaxis Hypotension after hip surgery 2021 Prolonged QT interval normal QTc 11/2023 EKG Paroxysmal atrial tachycardia Abnormal ECG Afib with RVR after hip surgery 2021; converted to NSR spontaneously after a few hours; no recurrence Hypercalcemia (Acute) calcium normal 04/2024 labs Weakness (Acute) 06/2021 Hypertension Encounter for pre-operative examination Anxiety Hyperlipidemia (Acute) Rose's palsy (Acute) Depression (Acute) Medical History (Updated 05/05/24 @ 13:14 by Shruthi Menezes PA-C) Anemia Hyperlipidemia 'controlled by diet and exercise' per pcp Hx of Clostridium difficile infection noted in 2014, but pt unaware History of hypertension no meds currently; 'controlled by diet and exercise' per pcp 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 Depression Anxiety History of atrial fibrillation Afib with RVR after hip surgery 2021; converted to NSR spontaneously after a few hours; no recurrence Hx of Rose's palsy HX LEFT SIDE 2008 -DROOPS SLIGHTLY Back problem pain Paroxysmal atrial tachycardia resolved per pt Fibromyalgia Osteoarthritis History of diverticulitis History of seizures as a child At age 11 Surgical History Hx of squamous cell carcinoma excision Status post left hip replacement (~07/2021) History of colonoscopy History of squamous cell carcinoma excision S/P tonsillectomy S/P knee surgery Right 1966 S/P brain surgery Removal of meningioma (2005) History of hip replacement Right 2011 Left 2021 S/P cholecystectomy Family History Father Diverticulitis Colorectal cancer Mother Herpes zoster infection Sister Sinus symptom Denies family history of Ovarian cancer Prostate cancer Myocardial infarction Breast cancer Lung cancer Stroke Social History Smoking Status: Never smoker Tobacco Type: Cigarettes Age Started Using Tobacco: 17; Age Quit Using Tobacco: 28; packs per day: 0.25; Second Hand Exposure: No; Do You Dip or Chew Tobacco: No; Tobacco Cessation Education Requested by Patient: No Hx Alcohol Use: Yes Alcohol type: wine Alcohol Intake Frequency: 2-4 x/Month Hx Substance Use: No Preferred Language: Armenian Communication Ability: Effective Visual Impairment: No Limitations Hearing Ability: Normal Household Appliance Assembler Required: No Beliefs That Will Affect Care: None marital status: Current Living Situation: Spouse current occupational status: retired How many Children do You have: 2 Other Information That Helps Us Care for You: No Feels Safe at Home: Yes Safety Concerns: Feels Safe At This Time during the past year weight has: remained stable Dental Care, Regularly: Yes Physical Activity Frequency: Daily Seatbelt Use: always Sunscreen Use: Yes Assistive Devices: Glasses Review of Systems Review of Systems: All systems reviewed & are unremarkable except as noted in HPI & below Physical Exam Constitutional: WD/WN, vitals as above Respiratory: normal respiratory effort, lungs clear to auscultation Cardiovascular: RRR, no murmur, no edema Chest (Breasts): Breast: + breast mass Additional Comments: Left breast with no skin changes, no contour irregularities, no dominant or discrete masses palpable, no axillary lymphadenopathy Right breast with nipple retraction and inversion. Bruising from biopsy. Palpable 3 to 4 cm retroareolar mass with mild tenderness. No other dominant or discrete masses palpable, no axillary lymphadenopathy palpable. Results & Data Results & Data Diagnostic Findings Clinical History Ill-defined hypoechoic mass measuring at least 3.2 cm and the right 2:00 breast. Rule out malignancy. Procedure performed: Ultrasound-guided biopsy of the right breast. FINAL DIAGNOSIS Breast, right, ultrasound-guided biopsy: - Invasive lobular carcinoma - Histologic grade: Intermediate - Tubules: 3/3 - Nuclei: 2/3 - Mitoses: 1/3 - Greatest linear extent: 13 mm - In situ component: Present - Microcalcifications: Not identified Comment: HER2 FISH is pending and the results will be reported in an addendum. at 1428. Gross Description RIGHT BREAST BIOPSY The specimen is received in a container labeled right with the patient name. The specimen consists of multiple pale pink, yellow and red cylindrical fragments of soft to rubbery tissue and blood clot. The fragments range from 0.3 to 1.8 cm long and average 0.2 cm in diameter. The specimen is submitted entirely in a single cassette for levels. The specimen was presumably immediately placed in 10% neutral buffered formalin and fixed for a total of 7 hours. AH Microscopic Description SMMS-1: shows a lack of myoepithelial cells around the invasive component; myoepithelial cells are seen highlighting an in situ component as well E-cadherin: negative Prognostic markers: ER: Positive (44.8%) Strong Intensity: 84% Surgical Pathology Report Page 1 of 3 [facility] Surgical Pathology Report Name: TERRI TURNER : 1940 Case #: [id number] Continued Moderate Intensity: 11% Weak Intensity: 5% AZ: Positive (12.6%) Strong Intensity: 55% Moderate Intensity: 18% Weak Intensity: 27% HER2/amado: Negative (score 1+) Ki-67 Proliferation Index: 10.6% Radiology Interpretation: Mammograms and ultrasounds personally viewed and interpreted agree with the assessment of a spiculated mass in the right breast causing nipple retraction measuring 3 cm with a solid component but with some small spiculations BILATERAL DIGITAL DIAGNOSTIC MAMMOGRAM TOMOSYNTHESIS WITH SYNTHETIC 2D AND TARGETED RIGHT ULTRASOUND: 02/26/2024 CLINICAL HISTORY: 83-year-old woman presents for diagnostic breast evaluation. She reports a new tender area of thickening in the right upper inner breast as well as right nipple inversion. Previous mammograms performed in . TECHNIQUE: Bilateral CC and MLO tomosynthesis images including synthesized 2D images (Intelligent 2D) were obtained. COMPARISON: Comparison is made to exams dated: 07/01/2014 mammogram, 07/01/2014 ultrasound biopsy, 04/08/2014 ultrasound, 04/08/2014 mammogram, 04/25/2013 ultrasound, and 04/25/2013 mammogram - [facility]. BREAST COMPOSITION: There are scattered areas of fibroglandular density. FINDINGS: A triangular skin sticker was placed over the focal area of thickening and tenderness pointed out by the patient prior to mammography. In the right central breast/1:00 retroareolar region, there is an ill-defined focal asymmetry with associated architectural distortion. The distortion spicules measure up to 5 cm in craniocaudal dimension. There is associated right nipple retraction, new comparing to the 2015 mammograms. No other obvious right breast mass, asymmetry, architectural distortion or suspicious microcalcification. Incompletely visualized right axillary lymph nodes on MLO images appear stable dating back to 03/12/2012. Nevertheless, further evaluation with ultrasound was performed. Stable mammographic appearance of the left breast, without asymmetry, mass, architectural distortion or suspicious microcalcification identified. Mild breast arterial calcification noted bilaterally. Targeted ultrasound was performed in the right breast and right axilla. Ultrasound directed over the site of tender palpable thickening pointed out by the patient in the 1:00 to 2:00 right breast, 2 cm from the nipple, demonstrates an ill-defined predominantly hypoechoic shadowing focal non-mass lesion measuring approximately 3.2 x 2.3 x 2.7 cm. This correlates with the ill- defined mammographic focal asymmetry and associated architectural distortion and is suspicious for malignancy. Definitive characterization with right breast ultrasound-guided core needle biopsy is recommended. The architectural distortion is noted 1.5 cm slightly medial and deep to the nipple/areola complex on ultrasound, likely causing of the nipple retraction. However, no definite mass lesion identified in the right nipple. Targeted ultrasound performed in the right axilla demonstrates a morphologically normal lymph node with homogeneous thin cortex. No right axillary adenopathy identified. IMPRESSION: ACR BI-RADS CATEGORY 4: SUSPICIOUS, ULTRASOUND ACR BI-RADS CATEGORY 4: SUSPICIOUS 1. Right breast ultrasound-guided core needle biopsy is recommended for an ill- defined focal non-mass lesion causing nipple retraction at the site of palpable/tender concern in the 1:00/retroareolar right breast measuring up to 3.2 cm on ultrasound/5 cm mammographically including distortion spicules. 2. No right axillary adenopathy seen mammographically or on targeted right axillary ultrasound. 3. Stable mammographic appearance of the left breast, without mammographic evidence of malignancy. These results and recommendations were discussed with the patient and her at the time of the exam. She tentatively scheduled the right breast biopsy prior to leaving the department. Some breast cancers are not detected with mammography. A negative mammographic report should not delay biopsy if a clinically suggestive mass is present. Roslyn Hinojosa M.D. ay/:02/26/2024 13:47:59 Glass Enamel Mixer: Ary Summers, RT(R)(M), [facility]; Roslyn Hinojosa, [facility] letter sent: Abnormal 4/5 OVERALL STUDY BIRADS: ACR BI-RADS Category 4: Suspicious PG Care Time/CCT Total # of Minutes Spent Total Time Spent with Patient: Total time spent is greater than 50% in coordination of care (as documented) at patient's floor/unit and/or counseling patient: Coding Level of Care Code None Diagnoses Invasive lobular carcinoma of right breast in female C50.911 Hypertension I10 Rose's palsy G51.0 Atrial fibrillation with rapid ventricular response I48.91
--- NOTE | 2024-05-07 09:07 | History & Physical Bridge Note ---
Date of Service May 07, 2024 History & Physical Bridge Note I have examined the patient, reviewed the History & Physical and in the interval since the performance of the History & Physical I have noted the following changes of clinical significance: [place] lymph node injection performed yesterday afternoon, right axillary sentinel lymph node identified. No changes noted
[2024-05-07] MEDS ORDERED: PROPOFOL IV EMULSION 10 MG/ML 20 ML VIAL IV ONE (09:16)
[2024-05-07] MEDS ORDERED: fentaNYL citrate PF 100 MCG/2 ML VIAL ONE (09:16)
[2024-05-07] MEDS ORDERED: ONDANSETRON INJ 2 MG/ML 2 ML VIAL ONE (09:16)
[2024-05-07] MEDS ORDERED: DEXAMETHASONE SOD INJ 4 MG/ML VIAL ONE (09:16)
[2024-05-07] MEDS ORDERED: ROCURONIUM BROMIDE 10 MG/ML 5 ML VIAL IV ONE (09:16)
[2024-05-07] MEDS ORDERED: LIDOCAINE 2% 2 ML VIAL/AMP(20MG/ML) INFIL ONE (09:16)
[2024-05-07] MEDS ORDERED: ACETAMINOPHEN 1000 MG/100 ML IV IV ONE (09:22)
[2024-05-07] MEDS: LACTATED RINGER'S 1,000 ML IV SCH (09:25)
[2024-05-07] MEDS ORDERED: ONDANSETRON INJ 2 MG/ML 2 ML VIAL IV PRN ×2 (09:26→13:03)
[2024-05-07] MEDS ORDERED: ePHEDrine sulfate 50 MG/ML AMP IV PRN (09:26)
[2024-05-07] MEDS ORDERED: ATROPINE SULFATE 0.1 MG/ML 10ML SYR IV PRN (09:26)
[2024-05-07] MEDS ORDERED: PHENYLEPHRINE 100MCG/ML 5ML SYR ONE (09:57)
[2024-05-07] MEDS ORDERED: ePHEDrine sulfate 50 MG/5 ML SYR ONE (09:57)
[2024-05-07] MEDS: ceFAZolin 2000MG 2,000 MG/15 ML SYR IV SCH (10:14)
[2024-05-07] MEDS ORDERED: ceFAZolin 330 MG/ML 1 GM VIAL ONE (10:35)
[2024-05-07] MEDS ORDERED: SUGAMMADEX SODIUM 200 MG/2 ML VIAL IV ONE (10:56)
[2024-05-07] MEDS ORDERED: KETOROLAC 30 MG/ML VIAL ONE (11:07)
[2024-05-07] MEDS: BUPIVACAINE 0.5 % 5 MG/1 ML MPF 30ML VIAL ONE (11:21)
[2024-05-07] MEDS: METHYLENE BLUE 0.5% 10 ML VIAL ONE (11:21)
[2024-05-07] MEDS: BUPIVACAINE LIPOSOME 1.3% 266 MG/20 ML VIAL ONE (11:23)
--- NOTE | 2024-05-07 11:31 | Operative Report ---
PG Post Operative Report Pre & Post Diagnosis Operation Date: 05/07/24 09:30 Pre-Op Diagnosis: Invasive Lobular Carcinoma of Right Breast Post-Op Diagnosis: Invasive Lobular Carcinoma of Right Breast I identified the patient and participated in the time-out.: Yes Procedure Operation Date: 05/07/24 09:30 Actual Procedures p Right Breast Mastectomy with [place] Lymph Node Biopsy(Right) - Berto Baldwin DO, BECK Surgeon Berto Baldwin DO, BECK Hairspring Setter Xiomara Venegas Estimated Blood Loss 40 Findings Consistent with Post-Op Diagnosis This single sentinel lymph node identified measured 80 ex vivo. Axilla silent. Right simple mastectomy performed, THADDEUS drain left Specimens Right axillary sentinel lymph node right breast mastectomy Drains 10 mm THADDEUS right mastectomy Anesthesia Type General Complications none Disposition Accompanied Patient To Recovery: Yes Disposition: Recovery Room Indications 83-year-old female with invasive lobular carcinoma of the right breast, plan for right breast mastectomy with right axillary sentinel lymph node biopsy. The risks of the procedure were discussed, all questions were answered, and the patient agreed to proceed with surgery as planned. Description of Procedure The patient had sentinel lymph node injection prior to the surgery. Lymphoscintigraphy was performed and confirmed uptake into the right axilla. Prior to the procedure the axilla was examined with a gamma probe and confirmed uptake into the axilla. The patient was properly identified, consented, and taken to the operating room where she was placed in the supine position. General endotracheal anesthesia was induced. SCDs and a safety belt were placed. Preoperative antibiotics were administered. The patient's bilateral chest and axilla was prepped and draped in the standard sterile fashion. Surgical timeout was performed and all parties were in agreement that this was the correct patient and procedure to be performed and we continued as planned. A transversely oriented elliptical incision was made that encompassed the nipple-arreolar complex on the right. Flaps were raised to the clavicle superiorly, the sternum medially, and the rectus sheath inferiorly. Care was taken to leave a few millimeters of fat underlying the skin flaps to allow for adequate blood supply. The breast was then taken off the chest wall including the pectoralis fascia from an medial to superior lateral. We then continued the dissection along the lateral border of the pectoralis muscle. Attention then turned to the sentinel lymph node biopsy. The gamma probe was used to localize the sentinel lymph node which read 80 ex vivo. The axilla was reexamined with the gamma probe and was silent. We completed the dissection and the specimen was removed. The specimen was oriented. The wound was irrigated and hemostasis was confirmed. Ao 10 mm THADDEUS drain was placed underneath the mastectomy flap. This exited inferior to the incision and was secured into place with 3-0 silk sutures. The skin was closed with interrupted 3-0 Vicryl deep dermal sutures, followed by 4-0 Monocryl running subcuticular suture. Dermabond was placed over the wound. Fluffed gauze and an Rodney wrap were placed around the chest. A dressing was placed over the drain. The patient was extubated in the operating room and taken to the PACU where she recovered without apparent incident. All sponge, instrument and needle counts were correct at the conclusion of the procedure. The patient tolerated the procedure well. The physicians plastic surgery assistant was present and scrubbed for the entirety of the procedure. She was critical in positioning the patient, prepping and draping, retraction and exposure, performance of the mastectomy, closure the incisions, placement of the dressings. I attest to the content of the Intraoperative Record and any orders documented therein. Any exceptions are noted below.
[2024-05-07] MEDS: fentaNYL citrate PF 100 MCG/2 ML VIAL IV PRN (11:55)
[2024-05-07] MEDS ORDERED: traMADol HCL 50 MG TABLET PO PRN (13:03)
[2024-05-07] MEDS ORDERED: MoRPHine SULFATE 4 MG/ML 1 ML CARP\\VIAL IV PRN (13:03)
[2024-05-07] MEDS ORDERED: diphenhydrAMINE Capsule 25 MG CAP PO PRN (13:03)
[2024-05-07] MEDS ORDERED: MoRPHine SULFATE 2 MG/ML CARP IV PRN (13:03)
--- NOTE | 2024-05-07 14:48 | Anesthesiology Progress Note ---
Date of Service May 07, 2024 Anesthesia Post Procedure Vital Signs Vital Signs: Temp Pulse Pulse Resp BP BP Pulse Ox 05/07/24 14:11 36.5 C 88 17 95/56 L 92 05/07/24 13:33 36.5 C 88 18 95/58 L 92 05/07/24 13:03 36.8 C 90 18 87/52 L 92 05/07/24 12:30 93 H 19 114/50 L 95 05/07/24 12:15 36.7 C 80 19 105/43 L 90 05/07/24 12:10 80 20 108/52 L 92 05/07/24 12:00 85 20 112/48 L 100 05/07/24 11:50 84 16 110/46 L 100 05/07/24 11:44 36.2 C L 84 14 115/48 L 99 05/07/24 08:48 36.8 C 94 H 20 158/88 H 96 O2 Del Method O2 Flow Rate 05/07/24 14:11 Room Air 05/07/24 13:33 Room Air 05/07/24 13:03 Room Air 05/07/24 12:30 Nasal Cannula 2 05/07/24 12:15 Room Air 0 05/07/24 12:10 Room Air 0 05/07/24 12:00 Oxymask 3 05/07/24 11:50 Oxymask 6 05/07/24 11:44 Oxymask 6 05/07/24 08:48 Room Air Transfer of Care Handoff Completed per policy Notes Mental Status: alert / awake / arousable Patient Amnestic to Procedure: Yes Nausea / Vomiting: adequately controlled Pain: adequately controlled Airway Patency, RR, SpO2: stable & adequate BP & HR: stable & adequate Hydration State: stable & adequate Anesthetic Complications: no major complications apparent and Pt Satisfied with anesthetic care
[2024-05-07] MEDS: ACETAMINOPHEN 1,000 MG/100 ML VIAL IV PRN (15:14)
[2024-05-07] MEDS: ceFAZolin 1000MG 1,000 MG/7.5 ML SYR IV SCH (15:30)
[2024-05-07] MEDS: traMADol HCL 50 MG TABLET PO PRN (18:46)
[2024-05-08 05:53] LABS: Basophils # (auto) 0.02 K/uL (0.00-0.20); Basophils % (auto) 0.1 %; Eosinophils # (auto) 0.01 K/uL (0.00-0.50); Eosinophils % (auto) 0.1 %; Hematocrit (blood only) 31.9 % (37.0-47.0); Hemoglobin 10.8 g/dl (12.0-16.0); Immature Granulocytes # (auto) 0.05 K/uL (0.01-0.20); Immature Granulocytes % (auto) 0.4 %; Lymphocytes % (auto) 10.1 %; Mean Corpuscular Hemoglobin 34.3 pg (25.0-34.0); Mean Corpuscular Hgb Conc 33.9 g/dL (32.0-36.0); Mean Corpuscular Volume 101.3 fL (80.0-100.0); Mean Platelet Volume 10.6 fL (9.4-12.4); Monocytes # (auto) 1.83 K/uL (0.11-0.59); Monocytes % (auto) 13.2 %; Neutrophils # (auto) 10.53 K/uL (1.40-6.50); Neutrophils % (auto) 76.1 %; Platelet Count 231 K/uL (130-400); RDW Coefficient of Variation 13.9 % (11.5-14.5); RDW Standard Deviation 51.8 fL (36.4-46.3); Red Blood Count 3.15 M/uL (4.20-5.40); White Blood Count 13.84 K/ul (4.8-10.8)
[2024-05-08 06:27] LABS: BUN Creatinine Ratio 31.3 (10-20); Calcium 9.1 mg/dl (8.6-10.3); Potassium 4.8 mmol/L (3.5-5.1)
[2024-05-08 07:36] VITALS: RESP 16; TEMP 97.5; O2SAT 93
--- NOTE | 2024-05-08 08:40 | Surgery Progress Note ---
Date of Service May 08, 2024 Assessment & Plan (1) Invasive lobular carcinoma of right breast in female: Plan: POD#1 R breast mastectomy with sentinel lymph node biopsy WBC 13.8, Hbg 10.8 (14). Vitals show some SBPs 90s-100s overnight improved this AM at 111/63. HRs stable at 70s-90s [place] drain with sanguinous output, 20cc documented overnight, only small amount in drain this AM Pt feels well overall with some expected incisional pain, worse with movement of the R arm Dressings in place, examined incision which is c/d/i with dermabond and some bruising noted from chest into axillary region. no obvious hematoma noted Will recheck cbc later this am, if hbg remains stable and patient continues to fair well anticipate d/c to home later today will be sent home with shena and will require teaching to care for drain. f/u in office in 1-2 weeks Admission and Anticipated Discharge Date Admission Date: May 07, 2024 Supervising Physician Co-Signing Physician Notes Patient seen examined, labs reviewed, agree with above. POD #1 right mastectomy with sentinel lymph node biopsy. Sore in her right chest, but otherwise no issues. On exam she is afebrile stable vitals. Flaps appear viable, incision without infection, SHENA drain serosanguineous. H&H with initial drop from preop this morning, but stable on repeat. Will discharge to home this afternoon, SHENA drain teaching, wound care instructions, activity restrictions, and return precautions given. Follow-up with general surgery in the clinic for drain removal. Subjective Patient feeling fairly well. Does have pain in R axillary and chest regions, rating it a 4/10 at rest but worse with movement. Otherwise doing well, no abd pain/n/v. No CP/SOB or lightheadedness or dizziness. Physical Exam Physical Exam: awake, no distress Respiratory: normal respiratory effort Chest (Breasts): Additional Comments: R chest incision c/d/i with dermabond, + bruising noted from [place] incisions into R axillary region, no obvious area's concerning for hematoma. tender. SHENA drain sang 20cc documented from overnight Results & Data Vital Signs (Past 12 Hours) Vital Signs Temp Pulse Pulse Resp BP Pulse Ox O2 Del Method 05/08/24 07:35 97.5 F L 76 16 111/63 93 Room Air 05/08/24 03:53 97.7 F 77 20 101/61 98 Room Air 05/07/24 23:54 97.9 F 87 20 110/63 93 Room Air 05/07/24 22:14 94 H PG Care Time/CCT Total # of Minutes Spent Total Time Spent with Patient: Total time spent is greater than 50% in coordination of care (as documented) at patient's floor/unit and/or counseling patient: Coding Level of Care Code 19407 Post Operative Follow-Up Diagnoses Invasive lobular carcinoma of right breast in female C50.911
[2024-05-08] MEDS: ACETAMINOPHEN 325 MG TAB PO PRN (08:56)
[2024-05-08] MEDS: VENLAFAXINE HCL XR 150 MG CAPXR PO SCH (08:56)
[2024-05-08 11:26] LABS: Hematocrit (blood only) 33.9 % (37.0-47.0); Hemoglobin 11.6 g/dl (12.0-16.0); Mean Corpuscular Hemoglobin 34.7 pg (25.0-34.0); Mean Corpuscular Hgb Conc 34.2 g/dL (32.0-36.0); Mean Corpuscular Volume 101.5 fL (80.0-100.0); Mean Platelet Volume 10.4 fL (9.4-12.4); Platelet Count 265 K/uL (130-400); RDW Standard Deviation 52.1 fL (36.4-46.3); Red Blood Count 3.34 M/uL (4.20-5.40); White Blood Count 13.23 K/ul (4.8-10.8)
[2024-05-08 11:38] VITALS: BP 112/61; PULSE 86
--- NOTE | 2024-05-12 10:36 | Discharge Summary ---
Date of Service May 08, 2024 Admission HPI Per Admitting Provider Here for follow-up and to schedule surgery. Initially referred for newly diagnosed right breast cancer. She noticed a lump and some nipple retraction in her right breast with some tenderness few weeks ago. She underwent imaging which was suspicious for malignancy. A biopsy was performed and showed invasive lobular carcinoma. She had had no prior imaging since 2014. She does not have any nipple drainage. No family history of breast cancer. No prior biopsies. No suspicious lesions on the left. She did have an ultrasound of the right axilla which showed no axillary lymphadenopathy. Pathology showed invasive lobular carcinoma, intermediate grade, ER/MA positive, HER2/amado negative, Ki-67 10.2%. She is otherwise relatively healthy, takes a baby aspirin but no other blood thinners. 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 Since her last visit she has been discussed with the breast radiologist as well as the tumor board. No MRI is recommended. Also, no neoadjuvant therapy is recommended at this time. Of note, due to the closeness of the tumor to the nipple and to the retraction, the breast radiologist feels she is a poor candidate for nipple sparing or breast conservation. no changes since last visit. Principal Diagnosis s/p right breast mastectomy and sentinel lymph node biopsy Discharge Exam awake/alert, no distress Respiratory normal respiratory effort Chest (Breasts) Additional Comments: R chest wound c/d/i with dermabond. some ecchymosis noted into axillary region. THADDEUS drain sanguineous. no hematoma Discharge Data Allergies Allergy/AdvReac Type Severity Reaction Status Date / Time hydrocodone Allergy Intermediate Itching Verified 05/07/24 08:53 codeine Allergy Mild Rash Verified 05/07/24 08:53 baclofen Allergy Unknown CAN'T Verified 05/07/24 08:53 REMEMBER fentanyl [From Duragesic] Allergy Unknown CAN'T Verified 05/07/24 08:53 REMEMBER gabapentin Allergy Unknown CAN'T Verified 05/07/24 08:53 REMEMBER hydromorphone AdvReac Intermediate N/V Verified 05/07/24 08:53 oxycodone AdvReac Intermediate Nausea, Verified 05/07/24 08:53 vertigo phenytoin AdvReac Intermediate Vertigo Verified 05/07/24 08:53 Procedures Performed Operation Date: 05/07/24 09:30 Actual Procedures p Right Breast Mastectomy with [place] Lymph Node Biopsy(Right) - Berto Baldwin DO, FACS Hospital Course (1) Invasive lobular carcinoma of right breast in female: This is an 83yF who was scheduled for an elective R breast mastectomy with sentinel lymph node biopsy with Dr. Baldwin on 05/07/24. The patient tolerated the procedure well, see op note for full details. The patient recovered in the p acu and was transferred to the med/surg floor in stable condition. Post operatively patient's pain controlled with prn medications. Diet was advanced as tolerated. POD#1 Hbg 10.8 (14) preop. A recheck was obtained around 11am and was stable at 11.6. Vitals stable. Surgical drain with small amount of sanguineous drainage. Patient wearing surgical dressings + SAMI with incision appearing c/d/i underneath without evidence of hematoma. Patient with some expected post op discomfort that was manageable. She was provided education on THADDEUS drain care by the RN's. Discharge instructions were reviewed and she was deemed stable for discharge to home with follow up in the office in 10-14 days. Total Time Total Time Spent Total Time Spent (In Minutes): 20 Discharge Plan Discharge Items Patient Disposition: Home - Self-Care Reason For Visit: Invasive Lobular Carcinoma of Right Breast in [place] Discharge Diagnosis: Right Breast Mastectomy with [place] Lymph Node Biopsy Activity: Per Instructions section Lifting: No more than 10 pounds Bathing Comment: you may shower; pat incisions dry starting 05/09; no tubs/baths x 2 weeks Exercise/Sports: Wait until after follow-up appointment Driving/Machine Use: no driving until cleared by the surgeon Non-emergency contact: Surgeon Call non-emergency contact if: you have any medication questions, your symptoms worsen, your pain is not controlled, your pain is worsening, you have a fever, your temperature is above 101.5, your wound has increased redness, your wound has increased drainage and your wound pain has increased Follow-up/Referrals: ProManish MD [Primary Care Provider] - Berto Baldwin DO, FACS [Physician] - (call office for follow up in 1-2 weeks ) Diet: Regular Addtl Attending Provider Instructions: SPECIAL CARE INSTRUCTIONS: * Dressing: You have surgical glue called dermabond on your surgical site incisions. You may shower with this on. This will tend to come off within a couple of weeks. Do not pick at it. * You may remove your outer surgical dressings on 05/09/24 (sami wrap, gauze, and ABD pad). you may replace a gauze dressing in your bra if you wish for comfort and protection from irritation in your bra. change daily/as needed * You will be sent home with a surgical drain in place. Care for drain as you have been instructed prior to discharge from the hospital. Empty drain 2-3x/[place] y and record output. Bring a log with you to the office. Otherwise keep drain to bulb suction and change surrounding dressing daily and as needed with gauze and medical tape. You can wear a supportive bra for comfort * You may shower . NO soaking in pools or baths for 2 weeks * No lifting greater than 10lbs. No exercise until cleared by surgeon. Light walking is accepted. * No driving until cleared by the surgeon * No drinking alcohol while taking narcotic pain medication * May use Ibuprofen/Tylenol over the counter for pain as tolerated. Do not exceed 3grams of Tylenol per 24 hours * Expect some swelling and bruising. * Diet Regular Call your doctor if: * Temperature above 101 degrees, nausea/vomiting, fever/chills * Pain not relieved by pain medicine ordered * There is increased drainage or redness from any incision * You have any unanswered questions or concerns [phone]. FOLLOW UP VISIT: If not already scheduled, please call the office for a follow-up visit. Office Pending Studies at Discharge: Yes Studies:: surgical pathology Stand-Alone Forms: My [facility] Medications and DC Order Prescriptions: New tramadol 50 mg tablet 50 mg PO Q6H PRN (Reason: pain, for initial therapy, max 4 tabs/day) Qty: 15 0RF Continued amoxicillin 500 mg tablet 2,000 mg PO ONCE PRN (Reason: prophylaxis) Qty: 4 2RF Rx Instructions: ONE HOUR PRIOR TO DENTAL PROCEDURE multivitamin [Daily Multi-Vitamin] tablet 1 tab PO QAM venlafaxine 150 mg capsule,extended release 24hr 150 mg PO QAM coQ10 (ubiquinol) 100 mg Capsule 100 mg PO QAM aspirin 81 mg Tablet,Delayed Release (Dr/Ec) 81 mg PO BID Qty: 84 0RF omega-3 fatty acids 1,000 mg Capsule 1,000 mg PO QAM Discharge Orders: Discharge Order (Routine); Ordered 05/08/24 Ordered By: Xiomara Venegas Admission Data Admit Date/Time: 05/07/24 11:49 Attending Provider: Berto Baldwin Admit Provider: Berto Baldwin Primary Care Provider: Manish Estrada Other Interventions: Discharge Summary Assessment (RN) Last Done: 05/08/24 12:55 Coding Level of Care Code 22250 IN/OBS DISCH 30 MIN/LESS Diagnoses Invasive lobular carcinoma of right breast in female C50.911
== END 2024-05-08 14:00 | disposition home or self-care (01) ==
LOC: 2N 08:30 → ASU 08:30